=== PATIENT | male | born 1960 | race Caucasian/White ===

== ENCOUNTER 2025-08-31 22:39 | Inpatient (IN) | payer OTHER, SELFPAY ==
[2025-08-31] VITALS (10 sets, daily range): BP systolic 151–185; BP diastolic 103–138; PULSE 119–140; RESP 16–44; TEMP 37.6; O2SAT 91–100; BMI 18.8
--- NOTE | 2025-08-31 22:49 | EDNOTE_ITS ---
ED SOB =RME/HPI General Chief Complaint: Shortness of Breath/Dyspnea Stated Complaint: O2 85 HR 140/ SOB Time Seen by Provider: 08/31/25 22:55 Arrival date/time: 08/31/25 22:39 RME / HPI RME / HPI Narrative: See MDM for Dr. Pinto's HPI documentation. Related Data Previous Rx's ?Medication ?Instructions ?Recorded Sulfamethoxazole/Trimethoprim DS * 1 tab PO BID #20 ta bs 09/01/16 (BACTRIM DS *) Allergies Allergy/AdvReac Type Severity Reaction Status Date / Time NKA* Allergy Uncoded 08/31/25 22:56 Review of Systems Review of Systems Systems Reviewed: All systems reviewed, normal except as documented Past Medical History Past Medical History CARDIAC: Negative Cardiac Disorders or Congestive Heart Failure RESPIRATORY: Negative Chronic Obstructive Pulmonary Disease (COPD) or Asthma GENITOURINARY: Negative Renal Disease ENDOCRINE: Negative Diabetes Mellitus Type 1 or Diabetes Mellitus Type 2 HEMATOLOGIC: Negative Sickle Cell Disease Social History SMOKING STATUS: Never smoker ED Exam Narrative Physical exam: See MDM for Dr. Pinto's physical exam documentation. Course Course Course Narrative: 2246: Sepsis alert initiated. Orders made at this time are congruent with ED Adult Sepsis Order List. Re-evaluation is to be completed. CXR is ordered for determining the etiology of shortness of breath. IVF not given due to the patient being in CHF. Quality Measures none Orders Category Date Time Status Bedside COVID-19 Antigen Test NOW Care 08/31/25 22:56 Active COVID-19 Screening Questionnaire NOW Care 09/01/25 01:[address] Screening NOW Care 08/31/25 22:57 Active Decision to Admit X1 Care 09/01/25 01:46 Active EKG (ED ONLY) *Do not use* NOW Care 08/31/25 22:50 Completed In and Out Catheter X1 Care 08/31/25 22:53 Completed Insert IV NOW Care 08/31/25 22:50 Active Transfuse,blood/blood products NOW Care 08/31/25 23:35 Active Referral Respiratory Therapy Stat Cons 08/31/25 22:55 Active EKG (ED Only) Stat Exams 08/31/25 22:50 Draft XR chest 1V portable Stat Exams 08/31/25 22:57 Completed ABG [Arterial Blood Gas] Stat Lab 08/31/25 23:24 Completed BNP [B-Type Natriuretic Peptide] Stat Lab 08/31/25 23:07 Completed Bilirubin,Direct Stat Lab 08/31/25 23:07 Completed Blood Culture (Lab) Stat Lab 08/31/25 23:07 Received CBC Stat Lab 08/31/25 23:07 Completed CMP [Comprehensive Metabolic Panel] Stat Lab 08/31/25 23:07 Completed CRP [C-Reactive Protein] Stat Lab 08/31/25 23:07 Completed Cocci Serology IgM with reflex to IgG [Cocci Serology, Lab 08/31/25 23:07 Received Unk History] Stat D-Dimer Stat Lab 08/31/25 23:07 Completed ESR [Sed Rate (ESR)] Stat Lab 08/31/25 23:07 Completed Influenza A & B Rapid Panel Stat Lab 08/31/25 23:10 Completed Lactate (Lactic Acid) Stat Lab 08/31/25 23:07 Completed Lipase Stat Lab 08/31/25 23:07 Completed Magnesium Stat Lab 08/31/25 23:07 Completed Procalcitonin Stat Lab 08/31/25 23:07 Completed TSH [Thyroid Stimulating Hormone] Stat Lab 08/31/25 23:07 Completed Troponin I Stat Lab 08/31/25 23:07 Completed Type and Screen Stat Lab 08/31/25 23:59 Completed UA, C/S IF [Urinalysis, C/S if Indicated] Stat Lab 08/31/25 23:10 Completed Urine Culture Stat Lab 08/31/25 23:10 Received rbc [Red Blood Cells] Stat Lab 08/31/25 23:59 Completed Furosemide Inj [Lasix Inj] Med 08/31/25 22:56 Discontinued 40 mg IVP X1 ONE Metoprolol Tartrate Inj [Lopressor Inj] Med 08/31/25 22:56 Discontinued 2.5 mg IVP X1 ONE Metoprolol Tartrate Inj [Lopressor Inj] Med 09/01/25 00:01 Discontinued 5 mg IVP X1 ONE Metoprolol Tartrate [Lopressor] Med 09/01/25 00:01 Discontinued 50 mg PO X1 ONE Morphine* Inj Med 08/31/25 22:56 Discontinued 2 mg IV X1 ONE Nitroglycerin Oint 2% [Nitro-paste Oint 2%] Med 08/31/25 22:56 Discontinued 2 inch TOP X1 ONE Vancomycin Inj 1,000 mg Med 09/01/25 00:03 Discontinued Sodium Chloride 0.9% 250 ml [Ns] 250 ml IV X1 cefTRIAXone/D5w 1gm IV premix [Rocephin/D5w 1gm IV Med 08/31/25 23:35 Discontinued premix] 1 gm in 50 ml IV X1 BiPAP / CPAP NOW RT 08/31/25 22:55 Active Oxygen Delivery NOW RT 08/31/25 22:53 Active Vital Signs Vital signs: Vital Signs Pulse Rate 139 H 08/31/25 22:45 Respiratory Rate 44 H 08/31/25 22:45 Blood Pressure 185/138 H 08/31/25 22:45 Pulse Oximetry (%) 95 08/31/25 22:45 Shortness of Breath / Dyspnea MDM Narrative MDM Narrative:: This section includes all my notes and documentations, including HPI, PE, and ED course. Eyal Pinto MD HPI: 64yo male here with worsening shortness of breath for the several days. With orthopnea and paroxysmal nocturnal dyspnea. No obvious fever. No chest pain. No other complaints. ROS: All negative except as documented in HPI. Physical Exam: General: Alert and oriented. In severe respiratory distress. Eyes: Conjunctivae and lids clear. ENT: No nasal congestion. Neck: Supple. Heart: RRR. Lungs: In respiratory distress. Decreased air movement with rales. Abdomen: Soft and nontender. Normal bowel sounds. No distension. No rebound or guarding. Back: No CVA tenderness. Skin: Warm and dry. Neuro: Alert and oriented X 3. I reviewed all diagnostic test results. My interpretation of the EKG is sinus tachycardia with nonspecific ST-T changes. My interpretation of the chest x-ray is infiltrates. Blood tests remarkable for WBC 21.0, Hgb 7.3, ESR 66, D-Dimer 2010, Na 130, CO2 12.6, Creatinine 7.4, Glucose 205, Lactic Acid 3.6, Troponin 0.108, CRP >10, BNP 1973, Procalcitonin 1.49. ABG showed pH 7.35, pCO2 23, HCO3 13. UA remarkable for positive leukocyte esterase, 84 WBCs, and bacteria. COVID/Influenza negative. At this point, diagnoses include: Acute respiratory failure with hypoxia Sepsis UTI (urinary tract infection) Pulmonary edema Renal failure Severe anemia Elevated troponin Treatment here included: BiPAP Nitro-paste Morphine Metoprolol Lasix Rocephin Vancomycin Transfusion ordered I discussed the case with our hospitalist. About the presentation and exam and diagnostics and treatments here. And need of further care in the hospital. Will accept the patient. Eyal Pinto MD Patient data External records reviewed:: [facility] previous records (Per chart review, patient has no previous ED visits or admissions to this facility.) Clinical information provided by:: patient Social determinants that could affect healthcare access:: none Patient has the following chronic illnesses:: none How is presenting disease/condition affected by chronic disease/condition?: no chronic disease Evaluation data The following diagnostics were reviewed and interpreted by me:: lab results, radiology exam(s) and EKG tracing(s) (My interpretation of the EKG is: Sinus tachycardia (138 bpm) with nonspecific ST-T changes. Eyal Pinto MD) Lab and/or radiology exams considered but not ordered:: none Interpretation Summary: I reviewed all diagnostic test results. My interpretation of the EKG is sinus tachycardia with nonspecific ST-T changes. My interpretation of the chest x-ray is infiltrates. Blood tests remarkable for WBC 21.0, Hgb 7.3, ESR 66, D-Dimer 2010, Na 130, CO2 12.6, Creatinine 7.4, Glucose 205, Lactic Acid 3.6, Troponin 0.108, CRP >10, BNP 1973, Procalcitonin 1.49. ABG showed pH 7.35, pCO2 23, HCO3 13. UA remarkable for positive leukocyte esterase, 84 WBCs, and bacteria. COVID/Influenza negative. Medications / Prescriptions Medications or Prescriptions considered but not ordered:: none Medication administrations:: Medication Administration History Acetaminophen (Acetaminophen 325 Mg Tablet) 650 mg PO Q6H PRN PRN Reason: Fever >101.5 Stop: 10/01/25 01:59 Acetaminophen (Acetaminophen 325 Mg Tablet) 650 mg PO Q6H PRN PRN Reason: PAIN SCALE 1-3 (mild Stop: 10/01/25 01:59 Bumetanide (Bumetanide Inj 0.25 Mg/Ml Vial 4 Ml) 2 mg IVP DAILY BRANNON Stop: 10/01/25 08:59 Carvedilol (Carvedilol 3.125 Mg Tablet) 6.25 mg PO BIDWM BRANNON Stop: 10/02/25 07:59 Heparin Sodium (Porcine) (Heparin Sod Inj 5000 Unit/Ml Vial) 5,000 unit SC Q8HR BRANNON Stop: 09/15/25 05:59 Piperacillin Sod/Tazobactam (Sod 4.5 gm/ Sodium Chloride) 100 mls @ 200 mls/hr IV Q12HR BRANNON; Protocol Stop: 09/08/25 02:07 Pharmacy Consult (Vancomycin Pharmacy To Dose 1 Each Each) 1 each IV QDAY [facility] Stop: 10/01/25 08:59 Sennosides (Senna/Docusate Sod 1 Tab Tablet) 1 tab PO QDAY PRN; Protocol PRN Reason: CONSTIPATION Stop: 10/01/25 03:16 Discontinued Medications Carvedilol (Carvedilol 3.125 Mg Tablet) 3.125 mg PO BIDWM [facility] Stop: 10/01/25 07:59 Furosemide (Furosemide Inj 10 Mg/Ml 4ml Vial) 40 mg IVP X1 ONE Stop: 08/31/25 22:57 Last Admin: 08/31/25 23:15 Dose: 40 mg Documented By: ANA PAULA Ceftriaxone Sodium/Dextrose (Rocephin/D5w 1gm Iv Premix) 1 gm in 50 mls @ 100 mls/hr IV X1 ONE Stop: 09/01/25 00:04 Last Infusion: 09/01/25 00:19 Dose: Infused Documented By: ANA PAULA Admin: 08/31/25 23:44 Dose: 100 mls/hr Documented By: ANA PAULA Vancomycin HCl 1,000 mg/ (Sodium Chloride) 250 mls @ 150 mls/hr IV X1 ONE Stop: 09/01/25 01:42 Last Infusion: 09/01/25 02:09 Dose: Infused Documented By: ANA PAULA Admin: 09/01/25 00:20 Dose: 150 mls/hr Documented By: ANA PAULA Piperacillin Sod/Tazobactam (Sod 4.5 gm/ Sodium Chloride) 100 mls @ 200 mls/hr IV X1 ONE; Protocol Stop: 09/01/25 02:59 Metoprolol Tartrate (Metoprolol Tartrate Inj 1 Mg/Ml Amp 5 Ml) 2.5 mg IVP X1 ONE Stop: 08/31/25 22:57 Last Admin: 08/31/25 23:16 Dose: 2.5 mg Documented By: ANA PAULA Metoprolol Tartrate (Metoprolol Tartrate Inj 1 Mg/Ml Amp 5 Ml) 5 mg IVP X1 ONE Stop: 09/01/25 00:02 Last Admin: 09/01/25 00:19 Dose: 5 mg Documented By: ANA PAULA Metoprolol Tartrate (Metoprolol Tartrate 25 Mg Tablet) 50 mg PO X1 ONE Stop: 09/01/25 00:02 Last Admin: 09/01/25 00:18 Dose: 50 mg Documented By: ANA PAULA Morphine Sulfate (Morphine Sulf Inj 4 Mg/Ml Vial) 2 mg IV X1 ONE Stop: 08/31/25 22:57 Last Admin: 08/31/25 23:19 Dose: Not Given Documented By: ANA PAULA Non-Admin Reason: Patient Refused Nitroglycerin (Nitroglycerin Oint 2% 1 Inch Packet) 2 inch TOP X1 ONE Stop: 08/31/25 22:57 Last Admin: 08/31/25 23:15 Dose: 2 inch Documented By: ANA PAULA Sodium Chloride (Sodium Chloride Rt 10% 15 Ml Nebu) 5 ml INH X1 ONE Stop: 09/01/25 02:43 Treatment here from me included: BiPAP Nitro-paste Morphine Metoprolol Lasix Rocephin Vancomycin Transfusion ordered Consultations Consultation(s) initiated? (list below): Yes Consultation #1 (Physician, Specialty, Details): I discussed the case with our hospitalist. About the presentation and exam and diagnostics and treatments here. And need of further care in the hospital. Will accept the patient. Diagnosis Shortness of Breath Differential Diagnosis: acute exacerbation of chronic obstructive airways disease, congestive heart failure, community acquired pneumonia, asthma with exacerbation and pulmonary embolism Most likely diagnosis given after review of the tests above:: At this point, diagnoses include: Acute respiratory failure with hypoxia Sepsis UTI (urinary tract infection) Pulmonary edema Renal failure Severe anemia Elevated troponin Admission Indicated Admission indicated?: indicated Explain why admission is indicated or not indicated:: At this point, diagnoses include: Acute respiratory failure with hypoxia Sepsis UTI (urinary tract infection) Pulmonary edema Renal failure Severe anemia Elevated troponin Admission Request Was there a request for admission?: Yes Admission Attestation Admission request attestation: Discussed case with [] from Hospitalist service regarding admission. Discussed patients ED course, exam findings, labs, and radiology results. The Hospitalist [agrees,declines] to accept the patient for admission. Disposition Plan Disposition Plan: Admit Critical Care Time Critical Care Time Critical Care Time: Yes Total Critical Care Time (min.): 35 Attestation: Due to a high probability of clinically significant, life threatening deterioration, the patient required my highest level of preparedness to intervene emergently and I personally spent this critical care time directly and personally managing the patient. This critical care time included obtaining a history; examining the patient; ordering and review of studies; arranging urgent treatment with development of a management plan; evaluation of patient's response to treatment; frequent reassessment; and discussions with family and other providers. It was exclusive of separately billable procedures and treating other patients and teaching time. Eyal Pinto MD Discharge Plan Plan Patient Disposition: Admit Acute Care w/in Hospital Problem List Clinical Impression: Acute respiratory failure with hypoxia, Sepsis, UTI (urinary tract infection), Pulmonary edema, Renal failure, Severe anemia, Elevated troponin
--- NOTE | 2025-08-31 22:50 | EKG_ITS ---
[facility] Test Date: 2025-08-31 Pat Name: ANDRES HINTON Department: Room: - Gender: Male Offset Printer: : [id number] Requested By: Eyal Ash Order Number: [id number] Reading MD: Eyal Ash Measurements Intervals [place] Rate: 138 P: 32 MT: 89 QRS: 6 QRSD: 81 T: 94 QT: 329 QTc: 499 Interpretive Statements SINUS TACHYCARDIA WITH SHORT MT INTERVAL ST DEVIATION AND MODERATE T-WAVE ABNORMALITY, CONSIDER ANTEROLATERAL ISCHEMIA [-0.1+ mV T-WAVE IN V3-V6] No previous ECG available for comparison /store/S0/[id number]/[id number].pdf
--- NOTE | 2025-08-31 22:57 | XR_ITS ---
EXAMINATION: AP chest single view TECHNIQUE: AP portable upright chest single view August 31, 2025, 11:07 p.m. INDICATIONS: Shortness of breath today. FINDINGS: Extensive bilateral lung opacity consistent with pneumonia Normal heart size No pneumothorax Mild osteopenia IMPRESSION: Extensive bilateral pneumonia
[2025-08-31 23:13] LABS: Lactate (Lactic Acid) 3.6 mMol/L (0.4-2.0)
[2025-08-31] MEDS: FUROSEMIDE INJ 10 MG/ML 4ML VIAL 40 MG IVP (23:15)
[2025-08-31] MEDS: NITROGLYCERIN OINT 2% 1 INCH PACKET 2 INCH TOP (23:15)
[2025-08-31] MEDS: METOPROLOL TARTRATE INJ 1 MG/ML AMP 5 ML 2.5 MG IVP (23:16)
[2025-08-31 23:17] LABS: Collection Type, Urine Clean Catch; Squamous Epithelial Cell,Urine 0 /hpf (0-5)
[2025-08-31 23:18] LABS: Basophils # (Auto) 0.1 Thou/mm3 (0.0-0.2); Basophils % (Auto) 0 % (0-2.5); Eosinophils # (Auto) 0.1 Thou/mm3 (0.0-0.5); Eosinophils % (Auto) 0 % (0-10); Hematocrit 23.2 % (41.0-53.0); Immature Granulocytes Auto 0.32 Thou/mm3 (0.00-0.00); Lymphocytes # (Auto) 1.3 Thou/mm3 (1.0-4.8); Lymphocytes % (Auto) 6 % (10-50); Mean Corpuscular HGB Conc 31.5 g/dl (31.0-37.0); Mean Corpuscular Hemoglobin 27.2 pg (25.0-35.0); Mean Corpuscular Volume 87 fL (80-100); Monocytes # (Auto) 1.5 Thou/mm3 (0.0-0.8); Monocytes % (Auto) 7 % (0-12); Neutrophils # (Auto) 17.8 Thou/mm3 (1.8-7.7); Neutrophils % (Auto) 85 % (37-80); Nucleated Red Blood Cell # 0.00 Thou/mm3 (0.00-0.00); Nucleated Red Blood Cell % 0 /100 WBC (0); Platelet Count 554 Thou/mm3 (140-440); RDW Standard Deviation 45.7 fL (35.1-43.9); Red Blood Count 2.68 Miln/mm3 (4.50-5.90); White Blood Count 21.0 Thou/mm3 (3.8-10.6)
[2025-08-31 23:21] LABS: Hemoglobin 7.3 g/dL (13.5-16.0)
[2025-08-31 23:27] LABS: Bacteria,Urine Rare; Bilirubin,Urine Negative (Negative); Blood,Urine 1+ (Negative); Clarity,Urine Clear (Clear/Hazy); Color,Urine Lt-Yellow (Lt Yel-Yel); Glucose, Urine Negative (Negative); Ketones,Urine Negative (Negative); Leukocyte Esterase,Urine Positive (Negative); Nitrite,Urine Negative (Negative); PH,Urine 5.5 (5.0-7.0); Protein,Urine Trace (Neg - Trace); RBC,Urine 2 /hpf (0-3); Renal Epithelial Cells,Urine 2 /hpf (0-5); Specific Gravity,Urine 1.008 (1.001-1.035); Urobilinogen,Urine Negative mg/dL (0.0-1.0); WBC,Urine 84 /hpf (0-5)
[2025-08-31 23:29] LABS: Culture Indicated,Urine Yes
[2025-08-31 23:32] LABS: Base Excess -11 (-3-3); HCO3 13 mEq/L (20-26); Inspired Oxygen, FIO2 50 %; O2 Saturation 99 % (91-98); PCO2 23 mmHg (32.0-48.0); PO2 123 mmHg (83-108); pH, Arterial 7.35 (7.35-7.45)
[2025-08-31 23:33] LABS: Sed Rate (ESR) 66 mm/hr (0-20)
[2025-08-31 23:33] LABS: Allen Test Performed/OK; Puncture Site Right Radial
[2025-08-31 23:35] LABS: B-Type Natriuretic Peptide 1973 pg/mL (0-100); D-Dimer 2010 ng/mL (<600)
[2025-08-31] MEDS: cefTRIAXone/D5w 1gm IV premix 1 GM/50 ML BAG IV (23:44)
[2025-08-31 23:47] LABS: Alanine Aminotransferase 15 U/L (10-49); Albumin, Serum 3.8 gm/dL (3.4-4.8); Albumin/Globulin Ratio 1.1 (1.2-2.2); Alkaline Phosphatase 80 U/L (46-116); Anion Gap 18 (7-16); Aspartate Amino Transferase 14 U/L (0-34); BUN/Creatinine Ratio 10 Ratio (12-20); Bilirubin,Direct < 0.1 mg/dL (0.0-0.3); Bilirubin,Total 0.2 mg/dL (0.3-1.2); Blood Urea Nitrogen 72 mg/dL (9-23); C-Reactive Protein > 10.0 mg/dL (0.0-0.9); Calcium 9.4 mg/dL (8.3-10.6); Calcium (Corrected) 9.6 mg/dL (8.5-10.1); Chloride 99 mMol/L (98-107); Creatinine (Component) 7.4 mg/dL (0.6-1.3); Estimated Creatinine Clearance 8.8 mL/min (>60); Globulin 3.4 gm/dL (2.3-3.5); Glucose 205 mg/dL (74-106); Lipase 33 U/L (12-53); Magnesium 2.1 mg/dL (1.6-2.6); Osmolality,Calculated 288 (275-295); Potassium 4.4 mMol/L (3.4-5.1); Procalcitonin 1.49 ng/ml (0.0-0.49); Sodium 130 mMol/L (136-145); Thyroid Stimulating Hormone 3.45 uIU/mL (0.55-4.78); Total Protein 7.2 gm/dL (5.7-8.2); eGFR 8 See Note
[2025-08-31 23:48] LABS: Carbon Dioxide 12.6 mMol/L (20.0-31.0)
[2025-08-31 23:49] LABS: Troponin I 0.108 ng/mL (0.0-0.045)
[2025-08-31 23:57] LABS: Influenza A Ag Negative; Influenza B Ag Negative
[2025-09-01] VITALS (24 sets, daily range): BP systolic 119–165; BP diastolic 88–115; PULSE 100–129; RESP 16–32; TEMP 36.3–36.7; O2SAT 95–100
[2025-09-01] MEDS: METOPROLOL TARTRATE 25 MG TABLET 50 MG PO (00:18)
[2025-09-01] MEDS: METOPROLOL TARTRATE INJ 1 MG/ML AMP 5 ML 5 MG IVP (00:19)
[2025-09-01] MEDS: Vancomycin Inj 1,000 MG in SODIUM CHLORIDE 0.9% 250 ML 250 ML 150 MG IV (00:20)
--- NOTE | 2025-09-01 02:00 | ECHO_ITS ---
Transthoracic Echo Report Ht (in): 71 Wt (lb): 135 Exam Location: [id number] Status: Emergency Travel Manager: Daisy Lyon Indications: Procedure Performed: BP: 138 / 105 HR: 122 MEASUREMENTS (Male / Female) Normal Values 2D ECHO LV Diastolic Diameter PLAX 5.0 cm 4.2 - 5.9 / 3.9 - 5.3 cm LV Systolic Diameter PLAX 3.8 cm IVS Diastolic Thickness 1.2 cm 0.6 - 1.0 / 0.6 - 0.9 cm LVPW Diastolic Thickness 1.2 cm 0.6 - 1.0 / 0.6 - 0.9 cm LV Relative Wall Thickness 0.5 LVOT Diameter 1.9 cm LV Ejection Fraction MOD BP 38.0 % >= 55 % LV Cardiac Index MOD BP 2693.7 cm?/min?m? LV Ejection Fraction MOD 4C 35.6 % LV Cardiac Index MOD 4C 2364.0 cm?/min?m? LV Ejection Fraction 4C AL 39.7 % LV Cardiac Index 4C AL 2783.7 cm?/min?m? LV Ejection Fraction MOD 2C 37.4 % LV Cardiac Index MOD 2C 2602.5 cm?/min?m? LV Ejection Fraction 2C AL 36.9 % LV Cardiac Index 2C AL 2655.2 cm?/min?m? LA Volume Index 25.0 cm?/m? 16 - 28 cm?/m? Ascending Aorta Diameter 2.8 cm M-MODE AV Cusp Separation MM 1.1 cm DOPPLER AV Peak Velocity 82.4 cm/s AV Peak Gradient 2.7 mmHg AV Mean Gradient 2.0 mmHg AV Velocity Time Integral 12.1 cm LVOT Peak Velocity 68.4 cm/s LVOT Peak Gradient 1.9 mmHg LVOT Velocity Time Integral 11.0 cm LVOT Cardiac Index 2187.8 cm?/min?m? AV Area Cont Eq vti 2.6 cm? AV Area Cont Eq pk 2.4 cm? MR ERO PISA 3.1 cm? LV E' Lateral Velocity 6.1 cm/s LV E' Septal Velocity 5.8 cm/s TR Peak Velocity 361.0 cm/s TR Peak Gradient 52.1 mmHg PV Peak Velocity 77.4 cm/s PV Peak Gradient 2.4 mmHg FINDINGS Left Ventricle Normal left ventricular size. Mild LVH with severe global hypokinsis Global left ventricular systolic function is severely decreased. . The ejection fraction is visually estimated at 30%. Right Ventricle The right ventricle is normal in size and systolic function. The estimated right ventricular systolic pressure, 58 mmHg with RAP 8. Left Atrium The left atrial cavity size is mildly increased. Right Atrium The right atrium is normal by two-dimensional imaging, color flow and Doppler imaging with no structural abnormalities, no thrombus formation present. Atrial Septum The interatrial septum appears normal with no evidence of a shunt. Aorta The aorta is normal by two-dimensional, color flow and Doppler interrogation. Mitral Valve The mitral valve is normal by two-dimensional, color flow and Doppler interrogation..Moderate to Severe 3 + mitral regurgitation. Aortic Valve Aortic valve sclerosis without stenosis. Tricuspid Valve The tricuspid valve is normal by two-dimensional, color flow and Doppler interrogation. There is moderate to severe tricuspid valve regurgitation. Pulmonic Valve The pulmonic valve is not well visualized. There is no significant pulmonic valve regurgitation. Vessels The pulmonary artery appears normal. The inferior vena cava pulmonary and hepatic veins appear normal. Pericardium There is a small pericardial effusion without tamponade Other Findings Large pleural effusion CONCLUSIONS Indication: CHF exacerbation Severe left ventricle global hypokinesis with severe sytolic dysfunction, LVEF 30% Normal right ventricular size and function. . Mild dilated LA Aortic valve sclerosis without stenosis. Moderatto severe 3+ mitral regurgitation Moderate to severe tricuspid valve regurgitation. RVSP mm HG Moderate pulmonry hypertension Let pleural efusion present There is a small pericardial effusion without tamponade Rashmi John (Electronically Signed) Final Date: 01 September 2025 12:27
[2025-09-01 02:13] LABS: Reflex Lactate? Y
--- NOTE | 2025-09-01 02:26 | ESHP_ITS ---
<Statement entered by Tee Fernandes MD - 09/01/25 05:33> I have discussed and was present for the essential components of the history, physical examination, diagnosis, and treatment plan with the resident. I agree with the patient's care as documented by the resident and amended herein by me. Tee Fernandes MD FACP. Documentation for date of: 09/01/25 HPI History of Present Illness History of present illness: Mr. Hartman is a 64 y/o male with no reported PMHx who presented with shortness of breath and orthopnea x2 days. Accompanied by , Malika, at bedside. About 5 days patient had subjective fevers and chills. Two days ago patient noticed progressive shortness of breath, orthopnea, productive cough, palpitations, and desatting to 85% spO2 on room air. Not on home O2, denies hx COPD. Notes decreased appetite, early satiety. Also reports dysuria, nocturia, and decreased urge to urinate especially at night. Denies chest pain, chest pressure, change in bowel movements, nausea, vomiting. Does not see a PCP or specialists. No similar episodes in the past. ED course: HR 100-140s, RR 20-40, BP 140-180s / 90-130s, BMI 18, spO2 91% 6L NC --> 98% BiPAP FiO2 50%. Labs significant for WBC 21, hgb 7.3, HCT 23, plt 554. Na 130, bicarb 12.6, BUN 72, Cr 7.4, eGFR 8, glucose 205. Ddimer 2009, Lactic acid 3.6, Trop 0.108, CRP >10, BNP 1973, procal 1.49, TSH WNL. pH 7.35/23/123/13. UA 1+ blood, + LE, WBC 84. Negative COVID/flu. CXR showed extensive b/l PNA. EKG sinus tachycardia 138, prolonged QTc 499. Pending urine and blood cx. Given lasix 40 mg PO x1 in ED, made ~150 mL urine by time of interview. Nitroglycerin 2 inch topical, metoprolol 2.5 mg IV, metoprolol 50 mg PO, metoprolol 5 mg IV, morphine 2 mg IV, Ceftriaxone 1g IV, Vancomycin 1g IV, 1U pRBC. PMHx: none reported Allergies: NKDA Home meds: Multivitamin SgHx: Left middle finger amputated (work SHx: Denies smoking, EtOH, recreational drug use. Lives at home in [place] with his . Retired school patrol. FHx: Dad - aneurysm, Mom - T2DM Review of Systems Review of Systems Narrative Review of Systems: 14 point ROS negative other than HPI Exam Vital Signs Temp Pulse Resp BP Pulse Ox O2 Del Method O2 Flow Rate 98.0 F 101 H 16 142/97 H 100 BiPAP 10 09/01/25 02:20 09/01/25 02:20 09/01/25 02:20 09/01/25 02:20 09/01/25 02:20 09/01/25 02:20 08/31/25 22:54 FiO2 50 09/01/25 00:45 Narrative Exam General: No acute distress, thin Eye: PERRL, EOMI, normal conjunctiva, no scleral icterus HENT: Normocephalic, atraumatic, normal hearing Neck: Supple, non-tender, no lymphadenopathy. JVD present Lungs: Crackles heard at b/l lung bases, on BiPAP Heart: Normal S1 and S2, no S3 or S4 appreciated. Normal rate and regular rhythm, no murmurs, rubs gallops. 2+ LE edema b/l Abdomen: Soft, non-tender, mildly distended (pt states this is normal for him), normal bowel sounds. No guarding or rebound tenderness. Musculoskeletal: Normal range of motion and strength, no tenderness or swelling Skin: Skin is warm, dry, no rashes or lesions. Neurologic: Alert, awake and oriented x3. CN II-XII grossly intact. No focal neuro deficits. No signs of meningeal irritation noted. Psychiatric: Cooperative, appropriate mood and affect Results: Labs 08/31/25 23:07 08/31/25 23:07 Labs: Short CBC 08/31/25 Range/Units 23:07 WBC 21.0 H (3.8-10.6) Thou/mm3 Hgb 7.3 L (13.5-16.0) g/dL Hct 23.2 L (41.0-53.0) % Plt Count 554 H (140-440) Thou/mm3 BMP 08/31/25 23:07 Sodium 130 L Potassium 4.4 Chloride 99 Carbon Dioxide 12.6 L* BUN 72 H Creatinine 7.4 H* Glucose 205 H Calcium 9.4 Cardiac Enzymes 08/31/25 Range/Units 23:07 Troponin I 0.108 H* (0.0-0.045) ng/mL Liver Function 08/31/25 Range/Units 23:07 Total Bilirubin 0.2 L (0.3-1.2) mg/dL Direct Bilirubin < 0.1 (0.0-0.3) mg/dL AST 14 (0-34) U/L ALT 15 (10-49) U/L Alkaline Phosphatase 80 (46-116) U/L Albumin 3.8 (3.4-4.8) gm/dL Urine 08/31/25 Range/Units 23:10 Urine Color Lt-Yellow (Lt Yel-Yel) Urine Clarity Clear (Clear/Hazy) Urine pH 5.5 (5.0-7.0) Ur Specific [place] 1.008 (1.001-1.035) Urine Protein Trace (Neg - Trace) Urine Glucose (UA) Negative (Negative) ABG Interpretation ABG results: 08/31/25 23:24 ABG pH 7.35 ABG pCO2 23 L ABG pO2 123 H ABG HCO3 13 L ABG O2 Saturation 99 H ABG Base Excess -11 L Quality Measures Quality Measures none Medications Home Medications and Allergies Allergies Allergy/AdvReac Type Severity Reaction Status Date / Time NKA* Allergy Uncoded 08/31/25 22:56 Visit Medications Acetaminophen (Acetaminophen 325 Mg Tablet) 650 mg PO Q6H PRN PRN Reason: Fever >101.5 Stop: 10/01/25 01:59 Acetaminophen (Acetaminophen 325 Mg Tablet) 650 mg PO Q6H PRN PRN Reason: PAIN SCALE 1-3 (mild Stop: 10/01/25 01:59 Bumetanide (Bumetanide Inj 0.25 Mg/Ml Vial 4 Ml) 2 mg IVP DAILY BRANNON Stop: 10/01/25 08:59 Heparin Sodium (Porcine) (Heparin Sod Inj 5000 Unit/Ml Vial) 5,000 unit SC Q8HR BRANNON Stop: 09/15/25 05:59 Piperacillin Sod/Tazobactam (Sod 4.5 gm/ Sodium Chloride) 100 mls @ 200 mls/hr IV Q12HR BRANNON; Protocol Stop: 09/08/25 02:07 Piperacillin Sod/Tazobactam (Sod 4.5 gm/ Sodium Chloride) 100 mls @ 200 mls/hr IV X1 ONE; Protocol Stop: 09/01/25 02:59 Pharmacy Consult (Vancomycin Pharmacy To Dose 1 Each Each) 1 each IV QDAY BRANNON Stop: 10/01/25 08:59 Discontinued Medications Furosemide (Furosemide Inj 10 Mg/Ml 4ml Vial) 40 mg IVP X1 ONE Stop: 08/31/25 22:57 Last Admin: 08/31/25 23:15 Dose: 40 mg Ceftriaxone Sodium/Dextrose (Rocephin/D5w 1gm Iv Premix) 1 gm in 50 mls @ 100 mls/hr IV X1 ONE Stop: 09/01/25 00:04 Last Infusion: 09/01/25 00:19 Dose: Infused Vancomycin HCl 1,000 mg/ (Sodium Chloride) 250 mls @ 150 mls/hr IV X1 ONE Stop: 09/01/25 01:42 Last Infusion: 09/01/25 02:09 Dose: Infused Metoprolol Tartrate (Metoprolol Tartrate Inj 1 Mg/Ml Amp 5 Ml) 2.5 mg IVP X1 ONE Stop: 08/31/25 22:57 Last Admin: 08/31/25 23:16 Dose: 2.5 mg Metoprolol Tartrate (Metoprolol Tartrate Inj 1 Mg/Ml Amp 5 Ml) 5 mg IVP X1 ONE Stop: 09/01/25 00:02 Last Admin: 09/01/25 00:19 Dose: 5 mg Metoprolol Tartrate (Metoprolol Tartrate 25 Mg Tablet) 50 mg PO X1 ONE Stop: 09/01/25 00:02 Last Admin: 09/01/25 00:18 Dose: 50 mg Morphine Sulfate (Morphine Sulf Inj 4 Mg/Ml Vial) 2 mg IV X1 ONE Stop: 08/31/25 22:57 Last Admin: 08/31/25 23:19 Dose: Not Given Nitroglycerin (Nitroglycerin Oint 2% 1 Inch Packet) 2 inch TOP X1 ONE Stop: 08/31/25 22:57 Last Admin: 08/31/25 23:15 Dose: 2 inch Assessment & Plan Plan Mr. Hartman is a 64 y/o male with no reported PMHx who presented with shortness of breath, orthopnea, palpitations, productive cough, dysuria x2 days. Admitted for acute CHF exacerbation, b/l PNA, UTI. #Acute CHF exacerbation Initial presentation: Shortness of breath, orthopnea, palpitations, cough, tachycardic, tachypneic, spO2 desat requiring supplemental O2 Physical exam: JVD, 2+ LE edema, crackles at b/l lung bases. BP BP 140-180s / 90-130s. spO2 91% 6L NC --> 98% BiPAP FiO2 50% Bedside echo: IVC dilation >2.5 cm, non-collapsible BNP: 1973 Troponin 0.108 EKG: sinus tachycardia 138, prolonged QTc 499 Given lasix 40 mg PO in ED --> made ~150 mL urine before valdez insertion, made ~1L urine after valdez insertion Plan: - BiPAP - Pending Echo - Consulted cardiology, appreciate recs - Bumex 2 mg IV daily - Carvedilol 6.25 mg PO BID - Lipid panel for cardiac risk stratification - Fluid restriction 1500 mL per day - Daily weights - Strict I&Os #CONOR #c/f cardiorenal sydrome type 1 vs type 3 vs type 5 Denies hx CKD, no hx dialysis BUN 72, Cr 7.4, eGFR 8, BUN/Cr ratio 10, CrCl 4 Plan: - Consulted nephrology, appreciate recs - CTM renal function with daily BMP - Pending b/l renal US to assess for hydronephrosis - May need dialysis if patient cannot make enough urine with diuretics - Avoid NSAIDs, ACEi/ARB #Sepsis 2/2 PNA, UTI #Leukocytosis #Elevated lactic acid - now resolved Tachycardic, tachypneic, leukocytosis, lactic acid elevated, troponin elevated, CONOR WBC 21, neutrophilic predominance Lactic acid 3.6 --> 1.9 Given Ceftriaxone 1g IV and Vancomycin 1g IV in ED No fluids given i/s/o acute CHF exacerbation Plan: - Abx management as below - Pending blood, urine, and sputum cx #Community-acquired pneumonia Shortness of breath with productive cough, desat to 80s at home procal 1.49 CXR showed extensive b/l PNA Given Ceftriaxone 1g IV and Vancomycin 1g IV in ED Plan: - Vancomycin IV daily (dosing per pharmacy) for MRSA coverage - Zosyn 4.5 g IV q12h (renally dosed) For gram positive, gram negative, and anaerobic coverage - On BiPAP - Pending sputum cx #Complicated UTI Dysuria, nocturia, and decreased urge to urinate especially at night No hx recurrent UTIs UA 1+ blood, + LE, WBC 84 Given Ceftriaxone 1g IV and Vancomycin 1g IV in ED Plan: - Zosyn 4.5 g IV q12h (renally dosed) for gram negative coverage - Pending urine cx - Valdez catheter given decreased urge to urinate, c/f retention #Elevated troponin Denies chest pain/pressure Troponin 0.108 Given nitroglycerin 2 in topical; metoprolol 2.5 mg IV, 50 mg PO, 5 mg IV; morphine 2 mg IV Plan: - Pending repeat troponin q6h. Can d/c once downtrending #Elevated D dimer D-dimer 2009 i/s/o shortness of breath, spO2 desaturation requiring supplemental O2/BiPAP Plan: - VQ scan to r/o PE #Primary anion gap metabolic acidosis #Compensatory respiratory alkalosis pH 7.35/CO2 23/O2 123/HCO3 13 Anion gap 18 Expected PaCO2: 25-29 (actual CO2 23). RR 20-40s Beta hydroxybutyrate WNL AOx3. Denies N/V, constipation, diarrhea, seizures, muscle cramps, pruritus DDX: lactic acid, uremia Plan: - Management of CHF and CONOR as above #Normocytic normochromic anemia Hgb 7.3, HCT 23. Transfused 1U pRBC in ED Plan: - Pending post transfusion H&H - CTM with daily CBC #QTc prolongation QTc 499 Plan: - Avoid QTc prolonging medications #Thrombocytosis Most likely reactive Plan: - CTM with daily CBC #Underweight BMI 18 Decreased appetite, early satiety Plan: - Cardiac/Renal diet #Hyperglycemia No hx T2DM Glucose 205 Plan: - Pending A1C #Hyponatremia Na 130 Plan: - CTM daily BMP Checklist Dispo: Admit to tele for cardiac monitoring Diet: Cardiac/Renal with fluid restriction 1500 mL/day Bowel Reg: doc/senna PRN VTE ppx: heparin subQ GI ppx: n/a Pain mgmt: Tylenol PRN Code status: Limited - no intubated, ok to do CPR Plan discussed with Dr. Dorsey and Dr. Dena Francois MD PGY1
--- NOTE | 2025-09-01 02:40 | PC.NURSE ---
The blood transfusion was initiated without any complications or symptoms reported by the patient. The nurse verified the patient?s identity and the blood products. Nurse at the bedside monitoring the patient closely. Vital signs were obtained at the time of initiation, and no signs of distress or discomfort were noted. The nurse will continue to monitor the patient?s condition, observing for any adverse reactions during the transfusion, particularly in the first 15 minutes, as per protocol. The patient is stable, and the procedure is proceeding as expected without any immediate concerns.
[2025-09-01 03:17] LABS: Lactic Acid, 3 HR 1.9 mMol/L (0.4-2.0)
[2025-09-01 03:21] LABS: Beta Hydroxybutyrate 0.3 mmol/L (<0.6)
--- NOTE | 2025-09-01 04:57 | PC.RT ---
Approached pt about providing a sputum sample at this time. Pt refused saying he has nothing to cough up at this time and he does not believe the sputum induction will work and again refused. Explained the importance of getting the sample and pt said he understood. Possibly will try later.
--- NOTE | 2025-09-01 05:30 | XR_ITS ---
Examination: Retroperitoneal ultrasound, complete Technique: Multiple high resolution grayscale images of the retroperitoneum obtained, including kidneys and bladder. Exam date and time: September 01, 2025, 0828 hours INDICATIONS: Acute renal insufficiency blood in the urine today FINDINGS: Right kidney 12.6 cm renal cortex 1.6 cm Left kidney 11.4 cm renal cortex 1.5 cm Mild right mild to moderate left hydronephrosis No renal calculi Bladder wall 0.9 cm no bladder mass, bladder prevoid volume 146 cc Prostate enlarged volume 74 cc no prostate nodules IMPRESSION: Mild right mild to moderate left hydronephrosis Significant prostatomegaly, no prostate nodules
[2025-09-01 08:03] LABS: Base Excess -10 (-3-3); HCO3 13 mEq/L (20-26); Inspired Oxygen, FIO2 40 %; O2 Saturation 100 % (91-98); PCO2 22 mmHg (32.0-48.0); PO2 147 mmHg (83-108); pH, Arterial 7.39 (7.35-7.45)
[2025-09-01 08:05] LABS: Allen Test Not Performed; Puncture Site Site Not Noted
[2025-09-01] MEDS: BUMETANIDE INJ 0.25 MG/ML VIAL 4 ML 2 MG IVP (08:21)
[2025-09-01] MEDS: HEPARIN SOD INJ 5000 UNIT/ML VIAL SC ×3 (08:22→22:22)
[2025-09-01] MEDS: SODIUM BICARBONATE 650 MG TABLET PO ×2 (08:24→20:24)
--- NOTE | 2025-09-01 09:08 | ESPR_ITS ---
<Statement entered by Amrit Cleveland MD - 09/05/25 12:13> I reviewed above note and agree with findings and plans. I have also personally examined the patient with medicine team and went over assessment and plan with medical team including academic intern and resident physician. <Statement entered by Bear Rodney MD - 09/01/25 20:01> I saw and examined patient personally and supervised PGY 1 resident, Dr. Flores with formulating a management plan. I agree with the documentation with the exceptions as listed below. Mr. Hartman is a 64 y/o male with no reported PMHx who presented with shortness of breath, orthopnea, palpitations, unproductive cough, dysuria x2 days. Admitted for acute decompensated CHF exacerbation, b/l PNA, UTI. Problem list: 1. Acute respiratory failure with hypoxia secondary to acute decompensated CHF exacerbation 2. Community-acquired pneumonia 3. NSTEMI type I versus type II 4. Acute kidney injury prerenal versus renal 5. Possible cardiorenal syndrome 6. Lactic acidosis?resolved 7. Leukocytosis 8. UTI 9. Anion gap metabolic acidosis?improving Patient presented with worsening shortness of breath for the past 3 days. According to his he recently cleaned his attic which was very [place] and his symptoms started around then. No history of medical conditions and also has not seen a doctor in years. Apparently he does check his blood pressure at home and reports that his SBP is usually are in the 140s. With regards to his acute respiratory failure with hypoxia he was on BiPAP overnight. This a.m. his ABG showed pH 7.39, pCO2 22. He was transition to nasal cannula saturating 99% on 2L. For his CHF exacerbation, he is on diuresis with Bumex 2 Mg IV daily. Has a - 1.7 L fluid balance in the past 24 hours. Echocardiogram showed severe global hypokinesis with EF 50%. Moderate to severe mitral and tricuspid regurgitation. instrument tech, Dr. Feliciano Awad was consulted. Appreciate recommendations At this point the etiology of his CONOR is obscure. Possibly due to venous congestion from cardiorenal syndrome also may be due to longstanding diagnosed hypertension leading to hypertensive nephropathy. Nephrology, Dr Chisholm was consulted. He is on ceftriaxone and azithromycin for his community-acquired pneumonia. Plan of care discussed with Attending Dr. Megha Rodney MD PGY 2 Disclaimer: This note was dictated by speech recognition. Minor errors in construction executive may be present due to voice recognition software. Documentation for date of: 09/01/25 Subjective Subjective Interval history: Patient examined bedside (on Bipap) with present, labs reviewed. States 2 weeks ago niece was sick with viral flu (cough/fever) who the was around. No other sick contacts. Patient and have not been socializing much because of the flu season. For the past 3 days he has had SOB with a dry non-productive cough (at times clear phlegm) with occasional dysuria. His states that he has been sitting in the tripod position the last 3 days; however patient protests this. states he is a fairly active person and was surprised by how fast he has decompensated. Patient endorses SOB when active and when lying down, currently improved on oxy mask. He denies chest pain and palpitations. States no recent history of unilateral limb swelling or redness. He is unhappy with how his catheterization was done and indicates before the valdez was put in his urine was yellow but after the unpleasant experience it is now blood orange red. Weight: 61.235 kg Net balance: (-)1.7L (2L was urine) Exam Vital Signs Temp Pulse Resp BP Pulse Ox O2 Del Method O2 Flow Rate 97.4 F 108 H 29 H 158/114 H 100 BiPAP 10 09/01/25 08:00 09/01/25 08:21 09/01/25 08:00 09/01/25 08:21 09/01/25 08:00 09/01/25 08:00 09/01/25 08:00 FiO2 40 09/01/25 08:00 Narrative Exam GENERAL APPEARANCE: AOx3. NAD, activity normal for age, well developed/ well nourished, no cyanosis, pallor, or diaphoresis. HEENT: Normocephalic atraumatic, no facial trauma, neck is supple. Lids/conjunctiva normal. Mucous membranes moist, nares normal, lips/teeth normal uvula midline without oral pharyngeal erythema, exudate or swelling TMs normal bilaterally. No lymphangitis/lymphedema. +JVD CARDIAC: Regular rhythm Tachy rate, S1+S2 heard. No murmurs, rubs, or gallops noted RESPIRATORY: On Bipap. Lung sounds difficult to auscultate. Minor bilateral crackles/rales appreciated, overall clear to auscultation. ABDOMINAL: NBS. Soft, ND/NT. No evidence of fluid wave. No pulsatile masses on exam, rebound tenderness, Huang sign or pain over Mcburney's point. MUSCLES/EXTREMITIES: No abnormal range of motion, no swelling. No pedal edema DERM: Warm, pink and dry. No rashes, dermatoses, petechiae or lesions. NEUROLOGICAL: Speech is clear and appropriate. Normal level of consciousness. Gait and coordination are normal. 5/5 strength in all extremities. PSYCH: Normal mood and affect. Judgement/competence is appropriate : No CVA tenderness Objective Labs 09/01/25 09:35 09/01/25 15:16 Labs: Laboratory Results - last 24 hr 08/31/25 08/31/25 08/31/25 23:07 23:10 23:24 WBC 21.0 H RBC 2.68 L Hgb 7.3 L Hct 23.2 L MCV 87 MCH 27.2 MCHC 31.5 RDW Std Deviation 45.7 H Plt Count 554 H Neut % (Auto) 85 H Lymph % (Auto) 6 L [place] % (Auto) 7 Eos % (Auto) 0 Baso % (Auto) 0 Neut # (Auto) 17.8 H Lymph # (Auto) 1.3 [place] # (Auto) 1.5 H Eos # (Auto) 0.1 Baso # (Auto) 0.1 Immature Gran # (Auto) 0.32 H Absolute Nucleated RBC 0.00 Immature Gran % 2 H Nucleated RBC % 0 ESR 66 H D-Dimer 2010 H Puncture Site Right Radial ABG pH 7.35 ABG pCO2 23 L ABG pO2 123 H ABG HCO3 13 L ABG O2 Saturation 99 H ABG Base Excess -11 L FiO2 50 Sodium 130 L Potassium 4.4 Chloride 99 Carbon Dioxide 12.6 L* Anion Gap 18 H BUN 72 H Creatinine 7.4 H* Estim Creat Clear Calc 8.8 L eGFR 8 L* BUN/Creatinine Ratio 10 L Glucose 205 H Calculated Osmolality 288 Lactic Acid 3.6 H Calcium 9.4 Corrected Calcium 9.6 Magnesium 2.1 Total Bilirubin 0.2 L Direct Bilirubin < 0.1 AST 14 ALT 15 Alkaline Phosphatase 80 Troponin I 0.108 H* C-Reactive Prot, Quant > 10.0 H B-Natriuretic Peptide 1973 H* Total Protein 7.2 Albumin 3.8 Globulin 3.4 Albumin/Globulin Ratio 1.1 L Lipase 33 Beta-Hydroxybutyrate/Acetoacetate Procalcitonin 1.49 H TSH 3.45 Ur Collection Type Clean Catch Urine Color Lt-Yellow Urine Clarity Clear Urine pH 5.5 Ur Specific [place] 1.008 Urine Protein Trace Urine Glucose (UA) Negative Urine Ketones Negative Urine Blood 1+ A Urine Nitrite Negative Urine Bilirubin Negative Urine Urobilinogen (Auto) Negative Ur Leukocyte Esterase Positive Urine RBC 2 Urine WBC 84 H Ur Squamous Epith Cells 0 Ur Renal Epithelial Cell 2 Urine Bacteria Rare Ur Culture Indicated? Yes Influenza A (Rapid) Negative Influenza B (Rapid) Negative Blood Type Antibody Screen Crossmatch Blood Bank Wristband ID 08/31/25 09/01/25 09/01/25 23:59 02:43 07:55 WBC RBC Hgb Hct MCV MCH MCHC RDW Std Deviation Plt Count Neut % (Auto) Lymph % (Auto) [place] % (Auto) Eos % (Auto) Baso % (Auto) Neut # (Auto) Lymph # (Auto) [place] # (Auto) Eos # (Auto) Baso # (Auto) Immature Gran # (Auto) Absolute Nucleated RBC Immature Gran % Nucleated RBC % ESR D-Dimer Puncture Site Site Not Noted ABG pH 7.39 ABG pCO2 22 L ABG pO2 147 H D ABG HCO3 13 L ABG O2 Saturation 100 H ABG Base Excess -10 L FiO2 40 Sodium Potassium Chloride Carbon Dioxide Anion Gap BUN Creatinine Estim Creat Clear Calc eGFR BUN/Creatinine Ratio Glucose Calculated Osmolality Lactic Acid 1.9 Calcium Corrected Calcium Magnesium Total Bilirubin Direct Bilirubin AST ALT Alkaline Phosphatase Troponin I C-Reactive Prot, Quant B-Natriuretic Peptide Total Protein Albumin Globulin Albumin/Globulin Ratio Lipase Beta-Hydroxybutyrate/Acetoacetate 0.3 Procalcitonin TSH Ur Collection Type Urine Color Urine Clarity Urine pH Ur Specific [place] Urine Protein Urine Glucose (UA) Urine Ketones Urine Blood Urine Nitrite Urine Bilirubin Urine Urobilinogen (Auto) Ur Leukocyte Esterase Urine RBC Urine WBC Ur Squamous Epith Cells Ur Renal Epithelial Cell Urine Bacteria Ur Culture Indicated? Influenza A (Rapid) Influenza B (Rapid) Blood Type A Positive Antibody Screen NEGATIVE Crossmatch See Detail Blood Bank Wristband ID Yes ABG Interpretation ABG results: 08/31/25 09/01/25 23:24 07:55 ABG pH 7.35 7.39 ABG pCO2 23 L 22 L ABG pO2 123 H 147 H D ABG HCO3 13 L 13 L ABG O2 Saturation 99 H 100 H ABG Base Excess -11 L -10 L Quality Measures Quality Measures none Assessment & Plan Assessment Current Active Medications: Generic Name Dose Route Start Last Admin Trade Name Teo PRN Reason Stop Dose Admin Acetaminophen 650 mg 09/01/25 07:31 Acetaminophen 325 Mg Tablet PO 10/01/25 01:59 Q6H PRN Fever >100 or pain 1-3 Bumetanide 2 mg 09/01/25 09:00 09/01/25 08:21 Bumetanide Inj 0.25 Mg/Ml Vial 4 Ml IVP 10/01/25 08:59 2 mg DAILY BRANNON Administration Dextrose 25 ml 09/01/25 07:33 Dextrose 50%-Water Inj 50 Ml Syringe IV 10/01/25 07:32 Q15MIN PRN BG 50-70 responsive npo pt Dextrose 50 ml 09/01/25 07:33 Dextrose 50%-Water Inj 50 Ml Syringe IV 10/01/25 07:32 Q15MIN PRN BG <50 OR BG <70 & pt unresponsive Glucagon 1 mg 09/01/25 07:33 Glucagon Inj 1 Mg Vial IM Q15MIN PRN BG <70, and no IV access Heparin Sodium (Porcine) 5,000 unit 09/01/25 06:00 09/01/25 08:22 Heparin Sod Inj 5000 Unit/Ml Vial SC 09/15/25 05:59 5,000 unit Q8HR BRANNON Administration Insulin Human Lispro 0 unit 09/01/25 11:30 Insulin Lispro (Admelog) 1 Unit/0.01 Ml Unit SC 10/01/25 11:29 ACHS [facility] Protocol Pharmacy Consult 1 each 09/01/25 07:30 Pharmacy Renal Dose Adjustment 1 Ea XX 10/01/25 07:29 PRN PRN CONSULT Sennosides 1 tab 09/01/25 03:17 Senna/Docusate Sod 1 Tab Tablet PO 10/01/25 03:16 QDAY PRN CONSTIPATION Protocol Sodium Bicarbonate 650 mg 09/01/25 09:00 09/01/25 08:24 Sodium Bicarbonate 650 Mg Tablet PO 10/01/25 08:59 650 mg BID [facility] Administration Plan Mr. Hartman is a 64 y/o male with no reported PMHx who presented with shortness of breath, orthopnea, palpitations, unproductive cough, dysuria x2 days. Admitted for acute CHF exacerbation, b/l PNA, UTI. #Acute hypoxic respiratory failure most likely 2/2 #Acute decompensated CHF exacerbation Differentials include CHF exacerbation & pneumonia. 3 days of SOB without productive cough. Desatted to 80% at home. Presented to ED SOB and tachypnic RR:20-40s in respiratory distress with O2:91% improved with Bipap. RRR on physical exam and very slight crackles bilateral crackles on lung auscultation. EKG showed sinus tachycardia with a short ND interval, a prolonged QTC interval:[address] elevations. Chest xray showed bilateral lung opacities and pleural effusions. BNP: 2693, Troponin 0.108 --> 0.126--> 0.083. NYHA class III (Marked limitation of physical activity; comfortable at rest). ASCVD: 10 year CV risk: 7.5% ECHO: severe left ventricle global hypokinesis with severe systolic dysfunction, LVEF: 30%, normal RV size and function. Mild dilated LA. Aortic valve sclerosis without stenosis. Moderate to severe 3+ mitral regurgitation. Moderate to severe tricuspid valve regurgitation. Moderate pulmonary hypertension. Left pleural effusion present. There is a small pericardial effusion without tamponade. Plan: - BiPAP - Consulted cardiology, appreciate recs - Discontinued Carvedilol 6.25 mg PO BID - Bumex 2 mg IV daily - Lipid panel: Triglycerides:90 cholesterol: 96 LDL: 46 HDL: 32 - Fluid restriction 1500 mL per day - Daily weights - Strict I&Os - NM VQ scan tomorrow pending patients tolerance to supine position #Community-acquired pneumonia Shortness of breath with productive cough, desat to 80s at home. Sick contact 2 weeks ago. Minimal bilateral crackles appreciated on lung auscultation. Procal 1.49. CXR showed extensive b/l PNA. Given Ceftriaxone 1g IV and Vancomycin 1g IV in ED. Myocarditis less likely due to moderate increase in cardiac enzymes, possible pericarditis due to symptoms improving with leaning forward (however discrepancy between patient and partner) small pericardial effusion without tamponade on ECHO and potential electrical alternans seen on EKG. Plan: - Vancomycin IV daily (dosing per pharmacy) for MRSA coverage - (DC'd 09/01) - Zosyn 4.5 g IV q12h (renally dosed) - (DC'd 09/01) - Ceftriaxone 1g in 50mL IV QD 100 mls/hr (09/01 - - Azithromycin 500 mg IV QD 250ml/hr (09/01 - - On BiPAP - Pending sputum cx:____ - Cocci:____ - RSV:____ - MRSA nasal screen:____ #NSTEMI-I vs NSTEMI-II Denies chest pain/pressure. Trops downtrending 0.108 --> 0.126--> 0.083. D dimers was 2009. Wells score: 1.5 (only positive finding is HR>100). In ED given nitroglycerin 2 in topical; metoprolol 2.5 mg IV, 50 mg PO, 5 mg IV; morphine 2 mg IV. Most likely type 2 from demand ischemia, no signs of ischemia from ekg, symptoms resolved with rest and oxygen. Low suspicion for PE therefore not pursuing imaging at this time. Plan: - VQ scan to r/o PE #Acute kidney injury (CONOR) most likely 2/2 #Hypovolemia (pre-renal azotemia) Differentials include prerenal azotemia from hypotension, cadiorenal, long standing kidney injury. Denies hx CKD, no hx dialysis. No CVA tenderness. BUN 72, Cr 7.4, eGFR 8, BUN/Cr ratio 10, CrCl 4. Renal US: mild to moderate left hydronephrosis, significant prostatomegaly, no prostate nodules. Long standing kidney injury may be the best differential due to long undoctored history and HAGMA resolving with lactic acidosis downtrending while BUN stays above 70 and elevate Cr: 7. Plan: - Consulted nephrology, appreciate recs - CTM renal function with daily BMP - Pending b/l renal US to assess for hydronephrosis - May need dialysis if patient cannot make enough urine with diuretics - Avoid NSAIDs, ACEi/ARB #Leukocytosis #Lactic acidosis - now resolved Tachycardic, tachypneic, leukocytosis, lactic acid elevated, troponin elevated, CONOR WBC 21, neutrophilic predominance. Lactic acid 3.6 --> 1.9. Given Ceftriaxone 1g IV and Vancomycin 1g IV in ED. No fluids given i/s/o acute CHF exacerbation Plan: - Abx management as below - Pending blood:___ - urine cx:____ - sputum cx:____ #UTI Dysuria, nocturia, and decreased urge to urinate especially at night. No hx recurrent UTIs UA 1+ blood, + LE, WBC 84. Given Ceftriaxone 1g IV and Vancomycin 1g IV in ED Plan: - Zosyn 4.5 g IV q12h (renally dosed) for gram negative coverage - DC'd - Pending urine cx: - Valdez catheter given decreased urge to urinate, c/f retention #Primary anion gap metabolic acidosis- Improving #Compensatory respiratory alkalosis pH 7.35/CO2 23/O2 123/HCO3 13. Anion gap 18. Expected PaCO2: 25-29 (actual CO2 23). RR 20-40s. Beta hydroxybutyrate WNL. AOx3. Denies N/V, constipation, diarrhea, seizures, muscle cramps, pruritus. Likely to be due to lactic acidosis due to LA downtrending to 1.9 from 3.6, and AG dropping from 18-->16-->14; while BUN stayed elevated in the 70s. Plan: - Management of CHF and CONOR as above #Normocytic normochromic anemia - resolving Hgb 7.3, HCT 23, on admission. Transfused 1U pRBC in ED therefore unable to do anemia workup since ferritin levels will be falsely elevated. Plan: - Post transfusion H+H: 8.9 - CTM with daily CBC #Transaminitis AST: 103 (112) ALT: 108 (104). Most likely secondary to hypovolemia i/s/o of acute CHF exacerbation. Plan: -CTM LFTs #QTc prolongation QTc 499 Plan: - Avoid QTc prolonging medications #Thrombocytosis Most likely reactive Plan: - CTM with daily CBC #Underweight BMI 18 Decreased appetite, early satiety Plan: - Cardiac/Renal diet #Hyponatremia Na 130 Plan: - CTM daily BMP #Hematuria Most likely secondary to traumatic cath. Patients urine was clear and after painful catheterization color appeared blood-orange red. Plan: -CTM urine output -Monitor for clots in urine bag Checklist Dispo: Admit to tele for cardiac monitoring Diet: Cardiac/Renal with fluid restriction Bowel Reg: doc/senna PRN VTE ppx: heparin subQ GI ppx: n/a Pain mgmt: Tylenol PRN Code status: Limited - no intubated, ok to do CPR Plan discussed with PGY2 Dr. Rodney and Attending Dr. Megha Flores MD PGY1
[2025-09-01 10:03] LABS: Basophils # (Auto) 0.1 Thou/mm3 (0.0-0.2); Basophils % (Auto) 0 % (0-2.5); Eosinophils # (Auto) 0.1 Thou/mm3 (0.0-0.5); Eosinophils % (Auto) 0 % (0-10); Hematocrit 27.1 % (41.0-53.0); Hemoglobin 8.9 g/dL (13.5-16.0); Immature Granulocytes Auto 0.21 Thou/mm3 (0.00-0.00); Lymphocytes # (Auto) 0.8 Thou/mm3 (1.0-4.8); Lymphocytes % (Auto) 5 % (10-50); Mean Corpuscular HGB Conc 32.8 g/dl (31.0-37.0); Mean Corpuscular Hemoglobin 28.3 pg (25.0-35.0); Mean Corpuscular Volume 86 fL (80-100); Monocytes # (Auto) 0.9 Thou/mm3 (0.0-0.8); Monocytes % (Auto) 6 % (0-12); Neutrophils # (Auto) 13.5 Thou/mm3 (1.8-7.7); Neutrophils % (Auto) 87 % (37-80); Nucleated Red Blood Cell # 0.00 Thou/mm3 (0.00-0.00); Nucleated Red Blood Cell % 0 /100 WBC (0); Platelet Count 532 Thou/mm3 (140-440); RDW Standard Deviation 44.6 fL (35.1-43.9); Red Blood Count 3.15 Miln/mm3 (4.50-5.90); White Blood Count 15.5 Thou/mm3 (3.8-10.6)
[2025-09-01 10:19] LABS: Glucose Estimated Average 105 mg/dL (80-131); Hemoglobin A1C 5.3 % Hgb (4.8-6.0)
[2025-09-01] MEDS: cefTRIAXone/D5w 1gm IV premix 1 GM/50 ML BAG IV (10:25)
[2025-09-01 10:26] LABS: Alanine Aminotransferase 104 U/L (10-49); Albumin, Serum 3.8 gm/dL (3.4-4.8); Albumin/Globulin Ratio 1.2 (1.2-2.2); Alkaline Phosphatase 80 U/L (46-116); Anion Gap 16 (7-16); Aspartate Amino Transferase 112 U/L (0-34); BUN/Creatinine Ratio 11 Ratio (12-20); Bilirubin,Total 0.2 mg/dL (0.3-1.2); Blood Urea Nitrogen 77 mg/dL (9-23); Calcium 9.7 mg/dL (8.3-10.6); Calcium (Corrected) 9.9 mg/dL (8.5-10.1); Cardiac Risk Estimate 3.0 RATIO (4.0-6.7); Chloride 101 mMol/L (98-107); Cholesterol 96 mg/dL (132-200); Creatine Kinase 35 U/L (34-171); Creatinine (Component) 7.3 mg/dL (0.6-1.3); Estimated Creatinine Clearance 9.0 mL/min (>60); Globulin 3.3 gm/dL (2.3-3.5); Glucose 121 mg/dL (74-106); HDL Cholesterol 32 mg/dL (40-60); LDL Cholesterol,Calculated 46 mg/dL (0-130); Magnesium 2.1 mg/dL (1.6-2.6); Osmolality,Calculated 288 (275-295); Potassium 5.0 mMol/L (3.4-5.1); Sodium 132 mMol/L (136-145); Total Protein 7.1 gm/dL (5.7-8.2); Triglycerides 90 mg/dL (30-150); eGFR 8 See Note
[2025-09-01 10:27] LABS: Carbon Dioxide 14.9 mMol/L (20.0-31.0)
--- NOTE | 2025-09-01 10:28 | ESCONSULT_ITS ---
<Statement entered by Clau Awad MD - 09/05/25 19:02> I personally examined the patient evaluated with resident physician PGY 2 Dr. Jc RENE patient has new onset heart failure chest x-ray mostly appears to be congestive heart failure rather than pneumonia recommend aggressive IV Bumex urine output goal of more than 3 L. Patient has cardiomyopathy possible etiology undetermined acute congestive heart failure anemia acute renal failure as well multiple medical issues acutely ill patient will continue to monitor the patient closely evaluate the patient and formulated treatment plan recommendation with PGY 2 HPI Data of Consult Requesting Physician: Tee Fernandes MD Admitting Provider: Tee Fernandes MD Attending Provider: Tee Fernandes MD Primary Care Provider: Physician No Primary/Family Consult Narrative History of present illness: Moshe Hartman is a 64-year-old male with no reported past medical history who presents after just a few days of shortness of breath. present at bedside to help provide additional history. Approximately 2 weeks ago patient's niece visited and at the time did not have symptoms but eventually developed a fever and cough later on. Since a few days ago, patient experienced progressively worsening shortness of breath with associated subjective fever and chills and lower extremity edema. Denies any chest discomfort, orthopnea, and PND. He does endorse some discomfort when urinating and decreased urine output within last few days but prior to shortness of breath has had no issues with urination. states that during September 2024, patient was cleaning out an attic and was exposed to significant amount of bat and rodent droppings and afterwards developed on and off illnesses in the months to follow. He does not see any specialist on the outpatient side, nor does he have a PCP. In the ED, vitals were significant for BP of 185/138, pulse of 139, respiratory rate of 44, saturating 95% on 6 L nasal cannula, and afebrile. Labs showed leukocytosis of 21, hemoglobin of 7.3, platelet of 554, bicarb of 15, creatinine of 7.4, BUN 72, GFR 8, troponin 0.11, BNP 1900 Pro-Chidi 1.5, CRP greater than 10, ESR 66. UA showed LE positive, 84 WBC, rare bacteria. CXR showed extensive bilateral infiltrates, EKG shows sinus tachycardia with nonspecific T wave abnormalities. In the ED, given Lasix 40 mg IV x 1, nitroglycerin patch, metoprolol tartrate total of 7.5 mg IV and 50 mg p.o., ceftriaxone and vancomycin. Cardiology consulted for new onset congestive heart failure. 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 cc:: cc: Tee Fernandes MD Review of Systems Review of Systems Systems Reviewed: All systems reviewed, normal except as documented Exam Vital Signs Temp Pulse Resp BP Pulse Ox O2 Del Method O2 Flow Rate 97.4 F 108 H 29 H 158/114 H 100 BiPAP 10 09/01/25 08:00 09/01/25 08:21 09/01/25 08:00 09/01/25 08:21 09/01/25 08:00 09/01/25 08:00 09/01/25 08:00 FiO2 40 09/01/25 08:00 Narrative Exam General: AOx3, no acute distress, able to speak full sentences, previously on BiPAP now on NC HEENT: NC/AT, mucous membranes moist, bilateral sclera anicteric Cardiovascular: tachycardic but rhythm, S1/S2 present, no murmurs appreciated Pulmonary: mild bibasilar crackles appreciated Abdominal: soft, non-tender, non-distended, no rebound/guarding, normal bowel sounds present Musculoskeletal: normal ROM, 1-2+ bilateral lower extremity pitting edema Skin: warm and dry, intact, no rashes Neuro: CN II-XII intact, no focal deficits Results Labs 09/01/25 09:35 09/01/25 15:16 Labs: Short CBC 08/31/25 09/01/25 Range/Units 23:07 09:35 WBC 21.0 H 15.5 H D (3.8-10.6) Thou/mm3 Hgb 7.3 L 8.9 L D (13.5-16.0) g/dL Hct 23.2 L 27.1 L (41.0-53.0) % Plt Count 554 H 532 H (140-440) Thou/mm3 BMP 08/31/25 23:07 Sodium 130 L Potassium 4.4 Chloride 99 Carbon Dioxide 12.6 L* BUN 72 H Creatinine 7.4 H* Glucose 205 H Calcium 9.4 Cardiac Enzymes 08/31/25 Range/Units 23:07 Troponin I 0.108 H* (0.0-0.045) ng/mL Liver Function 08/31/25 Range/Units 23:07 Total Bilirubin 0.2 L (0.3-1.2) mg/dL Direct Bilirubin < 0.1 (0.0-0.3) mg/dL AST 14 (0-34) U/L ALT 15 (10-49) U/L Alkaline Phosphatase 80 (46-116) U/L Albumin 3.8 (3.4-4.8) gm/dL Urine 08/31/25 Range/Units 23:10 Urine Color Lt-Yellow (Lt Yel-Yel) Urine Clarity Clear (Clear/Hazy) Urine pH 5.5 (5.0-7.0) Ur Specific [place] 1.008 (1.001-1.035) Urine Protein Trace (Neg - Trace) Urine Glucose (UA) Negative (Negative) ABG Interpretation ABG results: 08/31/25 09/01/25 23:24 07:55 ABG pH 7.35 7.39 ABG pCO2 23 L 22 L ABG pO2 123 H 147 H D ABG HCO3 13 L 13 L ABG O2 Saturation 99 H 100 H ABG Base Excess -11 L -10 L Quality Measures Quality Measures none Medications Home Medications and Allergies Home Medications ?Medication ?Instructions ?Recorded ?Confirmed ?Type No Known Home Medications 09/01/2507/19 History Allergies Allergy/AdvReac Type Severity Reaction Status Date / Time NKA* Allergy Uncoded 08/31/25 22:56 Visit Medications Acetaminophen (Acetaminophen 325 Mg Tablet) 650 mg PO Q6H PRN PRN Reason: Fever >100 or pain 1-3 Stop: 10/01/25 01:59 Bumetanide (Bumetanide Inj 0.25 Mg/Ml Vial 4 Ml) 2 mg IVP DAILY [facility] Stop: 10/01/25 08:59 Last Admin: 09/01/25 08:21 Dose: 2 mg Dextrose (Dextrose 50%-Water Inj 50 Ml Syringe) 25 ml IV Q15MIN PRN PRN Reason: BG 50-70 responsive npo pt Stop: 10/01/25 07:32 Dextrose (Dextrose 50%-Water Inj 50 Ml Syringe) 50 ml IV Q15MIN PRN PRN Reason: BG <50 OR BG <70 & pt unresponsive Stop: 10/01/25 07:32 Glucagon (Glucagon Inj 1 Mg Vial) 1 mg IM Q15MIN PRN PRN Reason: BG <70, and no IV access Heparin Sodium (Porcine) (Heparin Sod Inj 5000 Unit/Ml Vial) 5,000 unit SC Q8HR [facility] Stop: 09/15/25 05:59 Last Admin: 09/01/25 08:22 Dose: 5,000 unit Ceftriaxone Sodium/Dextrose (Rocephin/D5w 1gm Iv Premix) 1 gm in 50 mls @ 100 mls/hr IV QDAY [facility] Stop: 09/08/25 09:40 Last Admin: 09/01/25 10:25 Dose: 100 mls/hr Azithromycin 500 mg/ Sodium (Chloride) 250 mls @ 250 mls/hr IV QDAY [facility] Stop: 09/08/25 09:40 Insulin Human Lispro (Insulin Lispro (Admelog) 1 Unit/0.01 Ml Unit) 0 unit SC ACHS [facility]; Protocol Stop: 10/01/25 11:29 Pharmacy Consult (Pharmacy Renal Dose Adjustment 1 Ea) 1 each XX PRN PRN PRN Reason: CONSULT Stop: 10/01/25 07:29 Sennosides (Senna/Docusate Sod 1 Tab Tablet) 1 tab PO QDAY PRN; Protocol PRN Reason: CONSTIPATION Stop: 10/01/25 03:16 Sodium Bicarbonate (Sodium Bicarbonate 650 Mg Tablet) 650 mg PO BID [facility] Stop: 10/01/25 08:59 Last Admin: 09/01/25 08:24 Dose: 650 mg Discontinued Medications Acetaminophen (Acetaminophen 325 Mg Tablet) 650 mg PO Q6H PRN PRN Reason: Fever >101.5 Stop: 10/01/25 01:59 Acetaminophen (Acetaminophen 325 Mg Tablet) 650 mg PO Q6H PRN PRN Reason: PAIN SCALE 1-3 (mild Stop: 10/01/25 01:59 Carvedilol (Carvedilol 3.125 Mg Tablet) 3.125 mg PO BIDWM [facility] Stop: 10/01/25 07:59 Carvedilol (Carvedilol 3.125 Mg Tablet) 6.25 mg PO BIDWM [facility] Stop: 10/02/25 07:59 Furosemide (Furosemide Inj 10 Mg/Ml 4ml Vial) 40 mg IVP X1 ONE Stop: 08/31/25 22:57 Last Admin: 08/31/25 23:15 Dose: 40 mg Ceftriaxone Sodium/Dextrose (Rocephin/D5w 1gm Iv Premix) 1 gm in 50 mls @ 100 mls/hr IV X1 ONE Stop: 09/01/25 00:04 Last Infusion: 09/01/25 00:19 Dose: Infused Vancomycin HCl 1,000 mg/ (Sodium Chloride) 250 mls @ 150 mls/hr IV X1 ONE Stop: 09/01/25 01:42 Last Infusion: 09/01/25 02:09 Dose: Infused Piperacillin Sod/Tazobactam (Sod 4.5 gm/ Sodium Chloride) 100 mls @ 200 mls/hr IV Q12HR [facility]; Protocol Stop: 09/08/25 02:07 Piperacillin Sod/Tazobactam (Sod 4.5 gm/ Sodium Chloride) 100 mls @ 200 mls/hr IV X1 ONE; Protocol Stop: 09/01/25 02:59 Metoprolol Tartrate (Metoprolol Tartrate Inj 1 Mg/Ml Amp 5 Ml) 2.5 mg IVP X1 ONE Stop: 08/31/25 22:57 Last Admin: 08/31/25 23:16 Dose: 2.5 mg Metoprolol Tartrate (Metoprolol Tartrate Inj 1 Mg/Ml Amp 5 Ml) 5 mg IVP X1 ONE Stop: 09/01/25 00:02 Last Admin: 09/01/25 00:19 Dose: 5 mg Metoprolol Tartrate (Metoprolol Tartrate 25 Mg Tablet) 50 mg PO X1 ONE Stop: 09/01/25 00:02 Last Admin: 09/01/25 00:18 Dose: 50 mg Morphine Sulfate (Morphine Sulf Inj 4 Mg/Ml Vial) 2 mg IV X1 ONE Stop: 08/31/25 22:57 Last Admin: 08/31/25 23:19 Dose: Not Given Nitroglycerin (Nitroglycerin Oint 2% 1 Inch Packet) 2 inch TOP X1 ONE Stop: 08/31/25 22:57 Last Admin: 08/31/25 23:15 Dose: 2 inch Pharmacy Consult (Vancomycin Pharmacy To Dose 1 Each Each) 1 each IV QDAY PRN PRN Reason: RX Stop: 10/01/25 08:59 Sodium Chloride (Sodium Chloride Rt 10% 15 Ml Nebu) 5 ml INH X1 ONE Stop: 09/01/25 02:43 Assessment & Plan Plan Moshe Hartman is a 64-year-old male with no reported past medical history who is admitted for acute hypoxic respiratory failure and cardiology consulted for possible new onset congestive heart failure. #Acute hypoxic respiratory failure #New onset HFrEF (30% on 08/2025) #Decompensated congestive heart failure #NSTEMI type II/demand ischemia #? Myocarditis, viral Presents with acute onset, progressive shortness of breath over the course of a few days with associated fever, chills, edema and noted to have sick contact. No chest discomfort, orthopnea, or PND. Apparently exposed to bat and rodent droppings in attic and since has had episodes of recurrent illnesses. Given acuity of symptoms, suspect presentation to be due to silent cardiac pathology from prior exposure (possibly myocarditis) exacerbated by current respiratory infection given elevated WBC, ESR, CRP, and Pro-Chidi (though may be elevated from myocarditis). Lower suspicion for ischemic event given hypertension may be only risk factor as A1c 5.3%, lipid panel unremarkable, and TSH wnl. Thus, clinically suspected myocarditis on basis of new/acute onset of dyspnea/SOB, elevated troponins, T wave inversions in V3/4/5, and echo findings of EF of 30%, severe LV global hypokinesis, moderate to severe MR, moderate to severe TR, moderate pulmonary hypertension, small pericardial effusion. ? Agree with Bumex 2 mg IV daily (3.8 L urine output since admission, net -2.8 L) ? Agree with discontinuation of beta sujata ? Continue strict I/O, 1.5 L fluid restriction, and daily weights ? BiPAP as needed ? Pending VQ scan for further evaluation ? Once stable, can start introducing GDMT as tolerated ? Once stable, can consider outpatient cardiac MR given that gold standard for diagnosis is endomyocardial biopsy #Sinus tachycardia EKG and telemetry show sinus tachycardia with some nonspecific T wave abnormalities. Suspect to be due to underlying infection and CHF exacerbation. ? Treat underlying cause(s) #CAP #Acute vs chronic kidney injury #Lactic acidosis, resolved #AGMA #UTI #Normocytic anemia #Transaminitis ? Continue management per primary team ----- Plan discussed with attending physician Dr. Ritesh Rene MD PGY-2 Internal Medicine
[2025-09-01 10:29] LABS: Troponin I 0.126 ng/mL (0.0-0.045)
[2025-09-01] MEDS: AZITHROMYCIN INJ 500 MG in SODIUM CHLORIDE 0.9% 250 ML 250 ML 250 MG IV (10:33)
[2025-09-01 11:40] LABS: B-Type Natriuretic Peptide 2693 pg/mL (0-100)
[2025-09-01 11:45] LABS: Amphetamine/Methamp Scrn,U Negative (Negative); Barbiturate Screen,Urine Negative (Negative); Benzodiazepines Screen,Urine Negative (Negative); Benzoylecgonine Screen, Ur Negative (Negative); Fentanyl Screen,Urine Negative (Negative); Opiate Screen,Urine Negative (Negative); THC Screen,Urine Negative (Negative)
[2025-09-01 12:10] LABS: Cocci Serology, IgM Negative (Negative)
[2025-09-01 15:42] LABS: Alanine Aminotransferase 108 U/L (10-49); Albumin, Serum 3.5 gm/dL (3.4-4.8); Albumin/Globulin Ratio 1.2 (1.2-2.2); Alkaline Phosphatase 72 U/L (46-116); Anion Gap 14 (7-16); Aspartate Amino Transferase 102 U/L (0-34); BUN/Creatinine Ratio 10 Ratio (12-20); Bilirubin,Total 0.2 mg/dL (0.3-1.2); Blood Urea Nitrogen 75 mg/dL (9-23); Calcium 9.3 mg/dL (8.3-10.6); Calcium (Corrected) 9.7 mg/dL (8.5-10.1); Carbon Dioxide 17.3 mMol/L (20.0-31.0); Chloride 102 mMol/L (98-107); Creatinine (Component) 7.2 mg/dL (0.6-1.3); Estimated Creatinine Clearance 9.1 mL/min (>60); Globulin 3.0 gm/dL (2.3-3.5); Glucose 131 mg/dL (74-106); Osmolality,Calculated 290 (275-295); Potassium 4.5 mMol/L (3.4-5.1); Sodium 133 mMol/L (136-145); Total Protein 6.5 gm/dL (5.7-8.2); eGFR 8 See Note
[2025-09-01 15:43] LABS: Troponin I 0.083 ng/mL (0.0-0.045)
--- NOTE | 2025-09-01 15:45 | PC.SS ---
Follow up note: IV diuresis. Possible new dialysis. Pending cultures. Pt will return home upon dc.
--- NOTE | 2025-09-01 16:07 | PC.SS ---
SS met with patient regarding his d/c plan. Pt is alert/oriented. Pt was admitted for CHF Exacerbation. Pt confirmed demographic and contact information is correct on facesheet. Pt resides with and. Pt ambulates independently without assistance or DME. Pt is ok with all ADLs. Pt is currently on 3 liters of O2. Pt does not utilize O2 at home. Patient?s pharmacy of choice is [facility] in [employer]. Pt named his , Malika Byrne medical decision maker if he is unable. Patient?s choice is to return home upon d/c. Pt does not have an advance directive, SS offered, and pt declined. Pt states he not diabetic and is not established with dialysis. Pt does not have PCP. SS provided verbal choices for PCP. Pt and are agreeable to follow up with [facility] from [facility]. Pt was provided with Dr. Anderson information. SS arranged appointment with Dr. Bethany Moon at [facility] on September 15, 2025 at 1pm. D/C plan: Return home Next of Kin: Malika Byrne, , phone# [phone] PCP: Will establish at [facility] Address: Correct on facesheet
--- NOTE | 2025-09-01 17:18 | PC.NURSE ---
informed DR. Flores of pt bp 145/92 hr 112
--- NOTE | 2025-09-01 19:54 | PC.RT ---
sputum obtain at sent to lab
--- NOTE | 2025-09-01 19:55 | PC.RT ---
:pt expectorated sputum at moderate green thin.
[2025-09-01 21:50] LABS: Base Excess, Venous -7 (-3-3); O2 Saturation, Venous 98 % (96-97); PCO2, Venous 22 mmHg (36-56); PO2, Venous 100 mmHg (15-58); pH, Venous 7.46 (7.33-7.66)
--- NOTE | 2025-09-01 22:42 | ESCONSULT_ITS ---
RE: ANDRES HINTON : 1960 DATE OF CONSULTATION: 09/01/2025 REASON FOR REFERRAL: Acute kidney injury. REFERRING PHYSICIAN: Dr. Pinto. HISTORY OF PRESENT ILLNESS: This patient is a 64-year-old gentleman with no significant past medical history and has never seen a primary care physician at least in the past 5 years, who presented to emergency room last night with increasing shortness of breath, orthopnea and was found hypoxic with O2 saturation of 85% on room air. The patient about 3 days ago started having chills and fever. He started getting more short of breath in the past 2 days. When he presented to the emergency room last night, he was hypertensive with blood pressures in the 140s- 180s/90s and heart rate in the 100 range. Further evaluation revealed that he has a sodium of 130, bicarbonate of 12.6, creatinine of 7.4, and BUN of 72. BNP was likewise elevated at 1973. CRP is more than 10. Chest x-ray revealed extensive bilateral pneumonia. He was subsequently admitted and was started on IV Rocephin, IV vancomycin, and was given metoprolol for tachycardia. His hemoglobin was also noted to be low at 7.3 with white count of 21,000. He was admitted at telemetry and I was asked to see him to manage his acute kidney injury. His said that he never was told of any kidney problem at all. PAST MEDICAL HISTORY: None. ALLERGIES: NO KNOWN DRUG ALLERGIES. SURGICAL HISTORY: Left middle finger was amputated. SOCIAL HISTORY: No smoking, alcohol abuse or other drug abuse. PHYSICAL EXAMINATION: GENERAL: He is awake, alert, oriented, by the bedside. VITAL SIGNS: Blood pressure of 134/90, heart rate of 117, and respiratory rate of 31. HEENT: Anicteric sclerae. Normocephalic. NECK: Supple with JVD. CHEST AND LUNGS: Decreased breath sounds bilaterally. CARDIAC: Without murmur. ABDOMEN: Soft and nontender. EXTREMITIES: No edema. CURRENT MEDICATIONS: 1. Acetaminophen. 2. Zithromax 500 mg IV daily. 3. Bumetanide 2 mg IV daily. 4. Rocephin 1 g daily. 5. Furosemide 40 mg x1. 6. Heparin 5000 units subcutaneously q.8. 7. Hydralazine 10 mg IV q.6 p.r.n. 8. Lispro sliding scale. 9. Metoprolol 10 mg p.o. x1. 10. Metoprolol tartrate 2.5 mg IV x1. 11. Vancomycin 1 g x1. LABORATORY DATA: Hemoglobin 7.3, WBC 21,000, platelet count 554,000, sodium 130, potassium of 4.4, chloride 99, CO2 of 12.6, BUN 72, creatinine 7.4, glucose 205, lactic acid 3.6, calcium 9.4, troponin 0.108, CRP more than 10, BNP 1973, procalcitonin 1.49, and TSH 3.45. Chest x-ray revealed extensive bilateral lung opacity consistent with pneumonia. ASSESSMENT: 1. Acute kidney injury, most likely secondary to cardiorenal syndrome versus sepsis due to pneumonia. 2. Bilateral pneumonia. 3. Decompensated congestive heart failure. 4. Anemia, most likely secondary to chronic kidney disease. 5. Hypoxia. 6. Lactic acidosis, possibly sepsis versus decreased perfusion due to congestive heart failure. PLAN: I suspect the patient has decompensated congestive heart failure leading to lactic acidosis and fluid overload. I agree with continuation of Bumex 2 mg IV daily to decrease preload and hopefully increase cardiac output. I will obtain a bilateral kidney ultrasound to evaluate for chronic kidney disease. I agree with obtaining 2D echocardiogram. The patient will be followed closely. If kidney ultrasound would confirm presence of CKD, then I will start him on erythropoiesis-stimulating agent like Retacrit. DT: 21:30:22 TT: 22:40:00 Ref: [id number] - TID: [id number]
[2025-09-02] VITALS (10 sets, daily range): BP systolic 119–162; BP diastolic 86–105; PULSE 81–119; RESP 16–100; TEMP 36.1–36.7; O2SAT 94–100; BMI 19.1
[2025-09-02 06:03] LABS: Basophils # (Auto) 0.1 Thou/mm3 (0.0-0.2); Basophils % (Auto) 1 % (0-2.5); Eosinophils # (Auto) 0.6 Thou/mm3 (0.0-0.5); Eosinophils % (Auto) 5 % (0-10); Hematocrit 26.6 % (41.0-53.0); Immature Granulocytes Auto 0.18 Thou/mm3 (0.00-0.00); Lymphocytes # (Auto) 1.3 Thou/mm3 (1.0-4.8); Lymphocytes % (Auto) 11 % (10-50); Mean Corpuscular HGB Conc 32.3 g/dl (31.0-37.0); Mean Corpuscular Hemoglobin 28.0 pg (25.0-35.0); Mean Corpuscular Volume 87 fL (80-100); Monocytes # (Auto) 1.1 Thou/mm3 (0.0-0.8); Monocytes % (Auto) 9 % (0-12); Neutrophils # (Auto) 8.4 Thou/mm3 (1.8-7.7); Neutrophils % (Auto) 72 % (37-80); Nucleated Red Blood Cell # 0.00 Thou/mm3 (0.00-0.00); Nucleated Red Blood Cell % 0 /100 WBC (0); Platelet Count 546 Thou/mm3 (140-440); RDW Standard Deviation 46.0 fL (35.1-43.9); Red Blood Count 3.07 Miln/mm3 (4.50-5.90); White Blood Count 11.7 Thou/mm3 (3.8-10.6)
[2025-09-02 06:13] LABS: Hemoglobin 8.6 g/dL (13.5-16.0)
[2025-09-02] MEDS: HEPARIN SOD INJ 5000 UNIT/ML VIAL SC ×3 (06:23→21:00)
[2025-09-02 06:40] LABS: Alanine Aminotransferase 94 U/L (10-49); Albumin, Serum 3.6 gm/dL (3.4-4.8); Albumin/Globulin Ratio 1.1 (1.2-2.2); Alkaline Phosphatase 74 U/L (46-116); Anion Gap 18 (7-16); Aspartate Amino Transferase 52 U/L (0-34); BUN/Creatinine Ratio 11 Ratio (12-20); Bilirubin,Total 0.2 mg/dL (0.3-1.2); Blood Urea Nitrogen 77 mg/dL (9-23); Calcium 9.9 mg/dL (8.3-10.6); Calcium (Corrected) 10.2 mg/dL (8.5-10.1); Carbon Dioxide 17.3 mMol/L (20.0-31.0); Chloride 103 mMol/L (98-107); Creatinine (Component) 6.8 mg/dL (0.6-1.3); Estimated Creatinine Clearance 9.8 mL/min (>60); Globulin 3.2 gm/dL (2.3-3.5); Glucose 87 mg/dL (74-106); Magnesium 1.8 mg/dL (1.6-2.6); Osmolality,Calculated 297 (275-295); Phosphorous 6.8 mg/dL (2.4-5.1); Potassium 4.0 mMol/L (3.4-5.1); Sodium 138 mMol/L (136-145); Total Protein 6.8 gm/dL (5.7-8.2); eGFR 8 See Note
--- NOTE | 2025-09-02 08:31 | ESPR_ITS ---
<Statement entered by Clau Awad MD - 09/05/25 19:03> I personally examined evaluated the patient in telemetry floor with PGY 2 Dr. Jc RENE and the patient is doing quite well he more than 2 L urine output total shortness of breath clinically improving congestive heart failure improving JVD still present continue with IV diuretic therapy patient is also acute nonoliguric phase of renal failure with excellent urine output. Continue present medication will review cardiac echo upon completion. The patient had a cardiac echo showed severe LV dysfunction ejection fraction 30% with global hypokinesis. Documentation for date of: 09/02/25 Subjective Subjective Interval history: No acute overnight events. Seen and examined at bedside and patient resting comfortably on 2 L NC, saturating 97%. States he was able to be without supplemental oxygen for a couple hours and saturated in low 90s but felt slightly dyspneic. Still endorses some discomfort around [place] area. Urine continues to have sediment but appears more yellow today compared to yesterday. Blood pressure 160/100, pulse 110s. Leukocytosis improving, hemoglobin stable, renal function showing signs of improvement and patient has good urine output with neprhology following. Transaminitis also improving. Exam Vital Signs Temp Pulse Resp BP Pulse Ox O2 Del Method O2 Flow Rate 97.0 F 110 H 20 157/104 H 99 Room Air 2 09/02/25 08:00 09/02/25 08:00 09/02/25 08:00 09/02/25 08:00 09/02/25 08:00 09/02/25 08:00 09/02/25 07:14 FiO2 40 09/01/25 08:00 Narrative Exam General: AOx3, no acute distress, able to speak full sentences, on 2 L NC HEENT: NC/AT, mucous membranes moist, bilateral sclera anicteric Cardiovascular: tachycardic but normal rhythm, S1/S2 present, no murmurs appreciated Pulmonary: lungs clear to auscultation bilaterally Abdominal: soft, non-tender, non-distended, no rebound/guarding, normal bowel sounds present Musculoskeletal: normal ROM, no lower extremity edema Skin: warm and dry, intact, no rashes Neuro: CN II-XII intact, no focal deficits Objective Labs 09/03/25 05:38 09/03/25 05:38 Labs: Laboratory Results - last 24 hr 08/31/25 09/01/25 09/01/25 23:07 09:35 11:12 WBC 15.5 H D RBC 3.15 L Hgb 8.9 L D Hct 27.1 L MCV 86 MCH 28.3 MCHC 32.8 RDW Std Deviation 44.6 H Plt Count 532 H Neut % (Auto) 87 H Lymph % (Auto) 5 L [place] % (Auto) 6 Eos % (Auto) 0 Baso % (Auto) 0 Neut # (Auto) 13.5 H Lymph # (Auto) 0.8 L [place] # (Auto) 0.9 H Eos # (Auto) 0.1 Baso # (Auto) 0.1 Immature Gran # (Auto) 0.21 H Absolute Nucleated RBC 0.00 Immature Gran % 1 H Nucleated RBC % 0 VBG pH VBG pCO2 VBG pO2 VBG O2 Sat ([place]) VBG Base Excess Sodium 132 L Potassium 5.0 D Chloride 101 Carbon Dioxide 14.9 L* Anion Gap 16 BUN 77 H Creatinine 7.3 H* Estim Creat Clear Calc 9.0 L eGFR 8 L* BUN/Creatinine Ratio 11 L Glucose [address] Glu mg/dL 105 Hemoglobin A1c 5.3 Calculated Osmolality 288 Calcium 9.7 Corrected Calcium 9.9 Phosphorus Magnesium 2.1 Total Bilirubin 0.2 L AST 112 H ALT 104 H Alkaline Phosphatase 80 Total Creatine Kinase 35 Troponin I 0.126 H* B-Natriuretic Peptide 2693 H* Total Protein 7.1 Albumin 3.8 Globulin 3.3 Albumin/Globulin Ratio 1.2 Triglycerides 90 Cholesterol 96 L LDL Cholesterol, Calc 46 HDL Cholesterol 32 L Cholesterol/HDL Ratio 3.0 L Urine Opiates Screen Negative Urine Fentanyl Screen Negative Ur Barbiturates Screen Negative U Amphetamin/Meth Scrn Negative U Benzodiazepines Scrn Negative U Cocaine Metab Screen Negative U Marijuana (THC) Screen Negative Coccidioides IgM Ab Negative 09/01/25 09/01/25 09/02/25 15:16 21:32 05:00 WBC 11.7 H RBC 3.07 L Hgb 8.6 L Hct 26.6 L MCV 87 MCH 28.0 MCHC 32.3 RDW Std Deviation 46.0 H Plt Count 546 H Neut % (Auto) 72 Lymph % (Auto) 11 [place] % (Auto) 9 Eos % (Auto) 5 Baso % (Auto) 1 Neut # (Auto) 8.4 H Lymph # (Auto) 1.3 [place] # (Auto) 1.1 H Eos # (Auto) 0.6 H Baso # (Auto) 0.1 Immature Gran # (Auto) 0.18 H Absolute Nucleated RBC 0.00 Immature Gran % 2 H Nucleated RBC % 0 VBG pH 7.46 VBG pCO2 22 L VBG pO2 100 H VBG O2 Sat ([place]) 98 H VBG Base Excess -7 L Sodium 133 L 138 Potassium 4.5 D 4.0 D Chloride 102 103 Carbon Dioxide 17.3 L 17.3 L Anion Gap 14 18 H BUN 75 H 77 H Creatinine 7.2 H* 6.8 H* Estim Creat Clear Calc 9.1 L 9.8 L eGFR 8 L* 8 L* BUN/Creatinine Ratio 10 L 11 L Glucose [address] Glu mg/dL Hemoglobin A1c Calculated Osmolality 290 297 H Calcium 9.3 9.9 Corrected Calcium 9.7 10.2 H Phosphorus 6.8 H Magnesium 1.8 Total Bilirubin 0.2 L 0.2 L AST 102 H 52 H ALT 108 H 94 H Alkaline Phosphatase 72 74 Total Creatine Kinase Troponin I 0.083 H* B-Natriuretic Peptide Total Protein 6.5 6.8 Albumin 3.5 3.6 Globulin 3.0 3.2 Albumin/Globulin Ratio 1.2 1.1 L Triglycerides Cholesterol LDL Cholesterol, Calc HDL Cholesterol Cholesterol/HDL Ratio Urine Opiates Screen Urine Fentanyl Screen Ur Barbiturates Screen U Amphetamin/Meth Scrn U Benzodiazepines Scrn U Cocaine Metab Screen U Marijuana (THC) Screen Coccidioides IgM Ab ABG Interpretation ABG results: 08/31/25 09/01/25 09/01/25 23:24 07:55 21:32 ABG pH 7.35 7.39 ABG pCO2 23 L 22 L ABG pO2 123 H 147 H D ABG HCO3 13 L 13 L ABG O2 Saturation 99 H 100 H ABG Base Excess -11 L -10 L VBG pH 7.46 VBG pCO2 22 L VBG pO2 100 H VBG Base Excess -7 L Quality Measures Quality Measures none Assessment & Plan Assessment Current Active Medications: Generic Name Dose Route Start Last Admin Trade Name Freq PRN Reason Stop Dose Admin Acetaminophen 650 mg 09/01/25 07:31 Acetaminophen 325 Mg Tablet PO 10/01/25 01:59 Q6H PRN Fever >100 or pain 1-3 Bumetanide 2 mg 09/01/25 09:00 09/01/25 08:21 Bumetanide Inj 0.25 Mg/Ml Vial 4 Ml IVP 10/01/25 08:59 2 mg DAILY BRANNON Administration Dextrose 25 ml 09/01/25 07:33 Dextrose 50%-Water Inj 50 Ml Syringe IV 10/01/25 07:32 Q15MIN PRN BG 50-70 responsive npo pt Dextrose 50 ml 09/01/25 07:33 Dextrose 50%-Water Inj 50 Ml Syringe IV 10/01/25 07:32 Q15MIN PRN BG <50 OR BG <70 & pt unresponsive Glucagon 1 mg 09/01/25 07:33 Glucagon Inj 1 Mg Vial IM Q15MIN PRN BG <70, and no IV access Heparin Sodium (Porcine) 5,000 unit 09/01/25 06:00 09/02/25 06:23 Heparin Sod Inj 5000 Unit/Ml Vial SC 09/15/25 05:59 5,000 unit Q8HR BRANNON Administration Hydralazine HCl 10 mg 09/01/25 18:17 Hydralazine Inj 20 Mg/Ml Vial IVP 10/01/25 18:16 Q6HR PRN SBP>180 DBP>110 Ceftriaxone Sodium/Dextrose 1 gm in 50 mls @ 100 mls/hr 09/01/25 09:41 09/01/25 10:25 Rocephin/D5w 1gm Iv Premix IV 09/08/25 09:40 100 mls/hr QDAY BRANNON Administration Azithromycin 500 mg/ Sodium 250 mls @ 250 mls/hr 09/01/25 09:41 09/01/25 10:33 Chloride IV 09/08/25 09:40 250 mls/hr QDAY BRANNON Administration Magnesium Sulfate 2 gm in 50 mls @ 25 mls/hr 09/02/25 08:05 Magnesium Sulfate Ivpb IV 09/02/25 10:04 X1 ONE Potassium Chloride 10 meq in 100 mls @ 100 mls/hr 09/02/25 08:05 Kcl Ivpb IV 09/02/25 10:04 Q1H BRANNON Insulin Human Lispro 0 unit 09/01/25 11:30 09/02/25 07:43 Insulin Lispro (Admelog) 1 Unit/0.01 Ml Unit SC 10/01/25 11:29 Not Given ACHS BRANNON Protocol Pharmacy Consult 1 each 09/01/25 07:30 Pharmacy Renal Dose Adjustment 1 Ea XX 10/01/25 07:29 PRN PRN CONSULT Sennosides 1 tab 09/01/25 03:17 Senna/Docusate Sod 1 Tab Tablet PO 10/01/25 03:16 QDAY PRN CONSTIPATION Protocol Sevelamer Carbonate 800 mg 09/02/25 12:00 Sevelamer Carbonate 800 Mg Tablet PO 10/02/25 11:59 TIDWM BRANNON Sodium Bicarbonate 650 mg 09/01/25 09:00 09/01/25 20:24 Sodium Bicarbonate 650 Mg Tablet PO 10/01/25 08:59 650 mg BID BRANNON Administration Plan Moshe Hartman is a 64-year-old male with no reported past medical history who is admitted for acute hypoxic respiratory failure and cardiology consulted for possible new onset congestive heart failure. #Acute hypoxic respiratory failure, improving #New onset HFrEF (30% on 08/2025) #Decompensated congestive heart failure, improving #NSTEMI type II/demand ischemia, improving #? Myocarditis, viral #Tricuspid regurgitation, moderate-severe #Mitral regurgitation, moderate-severe Presents with acute onset, progressive shortness of breath over the course of a few days with associated fever, chills, edema and noted to have sick contact. No chest discomfort, orthopnea, or PND. Apparently exposed to bat and rodent droppings in attic and since has had episodes of recurrent illnesses. Given acuity of symptoms, suspect presentation to be due to silent cardiac pathology from prior exposure (possibly myocarditis) exacerbated by current respiratory infection given elevated WBC, ESR, CRP, and Pro-Chidi (though may be elevated from myocarditis). Lower suspicion for ischemic event given hypertension may be only risk factor as A1c 5.3%, lipid panel unremarkable, and TSH wnl. Thus, clinically suspected myocarditis on basis of new/acute onset of dyspnea/SOB, elevated troponins, T wave inversions in V3/4/5, and echo findings of EF of 30%, severe LV global hypokinesis, moderate to severe MR, moderate to severe TR, moderate pulmonary hypertension, small pericardial effusion. ? Continue Bumex 2 mg IV daily (net -3365 cc urine output in last 24 hours) ? Continue strict I/O, 1.5 L fluid restriction, and daily weights ? BiPAP as needed ? Pending VQ scan for further evaluation ? Once stable, can start introducing GDMT as tolerated ? Once stable, can consider outpatient cardiac MR given that gold standard for diagnosis is endomyocardial biopsy #Sinus tachycardia EKG and telemetry show sinus tachycardia with some nonspecific T wave abnormalities. Suspect to be due to underlying infection and CHF exacerbation. ? Treat underlying cause(s) #CAP #Acute vs chronic kidney injury, improving #Lactic acidosis, resolved #AGMA, improving #UTI #Normocytic anemia #Transaminitis, improving ? Continue management per primary team ----- Plan discussed with attending physician Dr. Ritesh Rene MD PGY-2 Internal Medicine
[2025-09-02 08:47] LABS: HIV (1&2) Antibody Rapid Non-Reactive
[2025-09-02] MEDS: AZITHROMYCIN INJ 500 MG in SODIUM CHLORIDE 0.9% 250 ML 250 ML 250 MG IV (09:23)
[2025-09-02] MEDS: BUMETANIDE INJ 0.25 MG/ML VIAL 4 ML 2 MG IVP (09:24)
[2025-09-02] MEDS: cefTRIAXone/D5w 1gm IV premix 1 GM/50 ML BAG IV (09:24)
[2025-09-02] MEDS: SODIUM BICARBONATE 650 MG TABLET PO ×2 (09:27→21:00)
--- NOTE | 2025-09-02 09:34 | ESPR_ITS ---
<Statement entered by Amrit Cleveland MD - 09/05/25 12:14> I reviewed above note and agree with findings and plans. I have also personally examined the patient with medicine team and went over assessment and plan with medical team including electrical intern and resident physician. <Statement entered by Bear Rodney MD - 09/02/25 15:45> I saw and examined patient personally and supervised PGY 1 resident, Dr. Flores with formulating a management plan. I agree with the documentation with the exceptions as listed below. Mr. Hartman is a 64 y/o male with no reported PMHx who presented with shortness of breath, orthopnea, palpitations, unproductive cough, dysuria x2 days. Admitted for acute decompensated CHF exacerbation, b/l PNA, UTI. Problem list: 1. Acute respiratory failure with hypoxia secondary to acute decompensated systolic congestive heart failure exacerbation?improving 2. Community-acquired pneumonia 3. NSTEMI type II?resolving 4. Acute kidney injury prerenal versus renal ? improving 5. Possible cardiorenal syndrome 6. Lactic acidosis?resolved 7. Leukocytosis?improving 8. UTI 9. Anion gap metabolic acidosis?improving 10. Transaminitis?improving 11. Hyperphosphatemia Patient had -3.6 L fluid balance in past 24 hours. Continues to be on diuresis with Bumex 2 Mg IV daily. This morning patient hypotensive with SBP was in 150s. Etiology of his heart failure possibly due to longstanding undiagnosed hypertension or possibly viral myocarditis leading to heart failure. Patient will need nuclear medicine cardiac MRI as outpatient, only endomyocardial biopsy cannot definitively rule in or out viral myocarditis. Patient continues to be on 2L nasal cannula and is ambulating without complaints. Will continue to monitor kidney function and urine output daily. call taker, Dr. Feliciano Awad consulted. Appreciate recommended Patient's BUN and creatinine improved slightly from 75-74 and 7.2-6.8 respectively. Transaminitis is also improving. Most likely secondary to congestive hepatopathy and cardiorenal syndrome. Will continue diuresis and monitoring kidney function. Started on sevelamer for hyperphosphatemia. Nephrology, Dr Chisholm on board. Plan of care discussed with Attending Dr. Megha Rodney MD PGY 2 Disclaimer: This note was dictated by speech recognition. Minor errors in plant anatomist may be present due to voice recognition software. Documentation for date of: 09/02/25 Subjective Subjective Interval history: Patient examined bedside on ND with present, labs reviewed. Overnight tele sinus tachy 100s. Patient confirmed he wants to be full code for resuscitation. He reports history of HTN 140-150s systolic at grocery store BP machine. There are clots in his urine bag, but he is still urinating through the valdez. Patient has no complaints other than wishes to walk around, ambulation order placed. Dr. Awad was consulted and recommended continue diureses. Weight: 61.142 kg Net balance: (-)3.51L (4.51L was urine) Exam Vital Signs Temp Pulse Resp BP Pulse Ox O2 Del Method O2 Flow Rate 97.0 F 110 H 20 162/105 H 99 Room Air 2 09/02/25 08:00 09/02/25 09:24 09/02/25 08:00 09/02/25 09:24 09/02/25 08:00 09/02/25 08:00 09/02/25 07:14 FiO2 40 09/01/25 08:00 Narrative Exam GENERAL APPEARANCE: AOx3. NAD, activity normal for age, well developed/ well nourished, no cyanosis, pallor, or diaphoresis. HEENT: Normocephalic atraumatic, no facial trauma, neck is supple. Lids/conjunctiva normal. Mucous membranes moist, nares normal, lips/teeth normal uvula midline without oral pharyngeal erythema, exudate or swelling TMs normal bilaterally. No lymphangitis/lymphedema. +JVD CARDIAC: Regular rhythm Tachy rate, S1+S2 heard. No murmurs, rubs, or gallops noted RESPIRATORY: Minor bilateral crackles/rales appreciated, overall clear to auscultation. ABDOMINAL: NBS. Soft, ND/NT. No evidence of fluid wave. No pulsatile masses on exam, rebound tenderness, Huang sign or pain over Mcburney's point. MUSCLES/EXTREMITIES: No abnormal range of motion, no swelling. No pedal edema DERM: Warm, pink and dry. No rashes, dermatoses, petechiae or lesions. NEUROLOGICAL: Speech is clear and appropriate. Normal level of consciousness. Gait and coordination are normal. 5/5 strength in all extremities. PSYCH: Normal mood and affect. Judgement/competence is appropriate : No CVA tenderness Objective Labs 09/02/25 05:00 09/02/25 05:00 Labs: Laboratory Results - last 24 hr 08/31/25 09/01/25 09/01/25 23:07 09:35 11:12 WBC 15.5 H D RBC 3.15 L Hgb 8.9 L D Hct 27.1 L MCV 86 MCH 28.3 MCHC 32.8 RDW Std Deviation 44.6 H Plt Count 532 H Neut % (Auto) 87 H Lymph % (Auto) 5 L [place] % (Auto) 6 Eos % (Auto) 0 Baso % (Auto) 0 Neut # (Auto) 13.5 H Lymph # (Auto) 0.8 L [place] # (Auto) 0.9 H Eos # (Auto) 0.1 Baso # (Auto) 0.1 Immature Gran # (Auto) 0.21 H Absolute Nucleated RBC 0.00 Immature Gran % 1 H Nucleated RBC % 0 VBG pH VBG pCO2 VBG pO2 VBG O2 Sat ([place]) VBG Base Excess Sodium 132 L Potassium 5.0 D Chloride 101 Carbon Dioxide 14.9 L* Anion Gap 16 BUN 77 H Creatinine 7.3 H* Estim Creat Clear Calc 9.0 L eGFR 8 L* BUN/Creatinine Ratio 11 L Glucose [address] Glu mg/dL 105 Hemoglobin A1c 5.3 Calculated Osmolality 288 Calcium 9.7 Corrected Calcium 9.9 Phosphorus Magnesium 2.1 Total Bilirubin 0.2 L AST 112 H ALT 104 H Alkaline Phosphatase 80 Total Creatine Kinase 35 Troponin I 0.126 H* B-Natriuretic Peptide 2693 H* Total Protein 7.1 Albumin 3.8 Globulin 3.3 Albumin/Globulin Ratio 1.2 Triglycerides 90 Cholesterol 96 L LDL Cholesterol, Calc 46 HDL Cholesterol 32 L Cholesterol/HDL Ratio 3.0 L Urine Opiates Screen Negative Urine Fentanyl Screen Negative Ur Barbiturates Screen Negative U Amphetamin/Meth Scrn Negative U Benzodiazepines Scrn Negative U Cocaine Metab Screen Negative U Marijuana (THC) Screen Negative Coccidioides IgM Ab Negative HIV 1&2 Antibody Rapid 09/01/25 09/01/25 09/02/25 15:16 21:32 05:00 WBC 11.7 H RBC 3.07 L Hgb 8.6 L Hct 26.6 L MCV 87 MCH 28.0 MCHC 32.3 RDW Std Deviation 46.0 H Plt Count 546 H Neut % (Auto) 72 Lymph % (Auto) 11 [place] % (Auto) 9 Eos % (Auto) 5 Baso % (Auto) 1 Neut # (Auto) 8.4 H Lymph # (Auto) 1.3 [place] # (Auto) 1.1 H Eos # (Auto) 0.6 H Baso # (Auto) 0.1 Immature Gran # (Auto) 0.18 H Absolute Nucleated RBC 0.00 Immature Gran % 2 H Nucleated RBC % 0 VBG pH 7.46 VBG pCO2 22 L VBG pO2 100 H VBG O2 Sat ([place]) 98 H VBG Base Excess -7 L Sodium 133 L 138 Potassium 4.5 D 4.0 D Chloride 102 103 Carbon Dioxide 17.3 L 17.3 L Anion Gap 14 18 H BUN 75 H 77 H Creatinine 7.2 H* 6.8 H* Estim Creat Clear Calc 9.1 L 9.8 L eGFR 8 L* 8 L* BUN/Creatinine Ratio 10 L 11 L Glucose [address] Glu mg/dL Hemoglobin A1c Calculated Osmolality 290 297 H Calcium 9.3 9.9 Corrected Calcium 9.7 10.2 H Phosphorus 6.8 H Magnesium 1.8 Total Bilirubin 0.2 L 0.2 L AST 102 H 52 H ALT 108 H 94 H Alkaline Phosphatase 72 74 Total Creatine Kinase Troponin I 0.083 H* B-Natriuretic Peptide Total Protein 6.5 6.8 Albumin 3.5 3.6 Globulin 3.0 3.2 Albumin/Globulin Ratio 1.2 1.1 L Triglycerides Cholesterol LDL Cholesterol, Calc HDL Cholesterol Cholesterol/HDL Ratio Urine Opiates Screen Urine Fentanyl Screen Ur Barbiturates Screen U Amphetamin/Meth Scrn U Benzodiazepines Scrn U Cocaine Metab Screen U Marijuana (THC) Screen Coccidioides IgM Ab HIV 1&2 Antibody Rapid Non-Reactive ABG Interpretation ABG results: 08/31/25 09/01/25 09/01/25 23:24 07:55 21:32 ABG pH 7.35 7.39 ABG pCO2 23 L 22 L ABG pO2 123 H 147 H D ABG HCO3 13 L 13 L ABG O2 Saturation 99 H 100 H ABG Base Excess -11 L -10 L VBG pH 7.46 VBG pCO2 22 L VBG pO2 100 H VBG Base Excess -7 L Quality Measures Quality Measures none Assessment & Plan Assessment Current Active Medications: Generic Name Dose Route Start Last Admin Trade Name Teo PRN Reason Stop Dose Admin Acetaminophen 650 mg 09/01/25 07:31 Acetaminophen 325 Mg Tablet PO 10/01/25 01:59 Q6H PRN Fever >100 or pain 1-3 Bumetanide 2 mg 09/01/25 09:00 09/02/25 09:24 Bumetanide Inj 0.25 Mg/Ml Vial 4 Ml IVP 10/01/25 08:59 2 mg DAILY BRANNON Administration Dextrose 25 ml 09/01/25 07:33 Dextrose 50%-Water Inj 50 Ml Syringe IV 10/01/25 07:32 Q15MIN PRN BG 50-70 responsive npo pt Dextrose 50 ml 09/01/25 07:33 Dextrose 50%-Water Inj 50 Ml Syringe IV 10/01/25 07:32 Q15MIN PRN BG <50 OR BG <70 & pt unresponsive Glucagon 1 mg 09/01/25 07:33 Glucagon Inj 1 Mg Vial IM Q15MIN PRN BG <70, and no IV access Heparin Sodium (Porcine) 5,000 unit 09/01/25 06:00 09/02/25 06:23 Heparin Sod Inj 5000 Unit/Ml Vial SC 09/15/25 05:59 5,000 unit Q8HR BRANNON Administration Hydralazine HCl 10 mg 09/01/25 18:17 Hydralazine Inj 20 Mg/Ml Vial IVP 10/01/25 18:16 Q6HR PRN SBP>180 DBP>110 Ceftriaxone Sodium/Dextrose 1 gm in 50 mls @ 100 mls/hr 09/01/25 09:41 09/02/25 09:24 Rocephin/D5w 1gm Iv Premix IV 09/08/25 09:40 100 mls/hr QDAY BRANNON Administration Azithromycin 500 mg/ Sodium 250 mls @ 250 mls/hr 09/01/25 09:41 09/02/25 09:23 Chloride IV 09/08/25 09:40 250 mls/hr QDAY BRANNON Administration Magnesium Sulfate 2 gm in 50 mls @ 25 mls/hr 09/02/25 08:05 Magnesium Sulfate Ivpb IV 09/02/25 10:04 X1 ONE Potassium Chloride 10 meq in 100 mls @ 100 mls/hr 09/02/25 08:05 Kcl Ivpb IV 09/02/25 10:04 Q1H BRANNON Insulin Human Lispro 0 unit 09/01/25 11:30 09/02/25 07:43 Insulin Lispro (Admelog) 1 Unit/0.01 Ml Unit SC 10/01/25 11:29 Not Given ACHS BRANNON Protocol Pharmacy Consult 1 each 09/01/25 07:30 Pharmacy Renal Dose Adjustment 1 Ea XX 10/01/25 07:29 PRN PRN CONSULT Sennosides 1 tab 09/01/25 03:17 Senna/Docusate Sod 1 Tab Tablet PO 10/01/25 03:16 QDAY PRN CONSTIPATION Protocol Sevelamer Carbonate 800 mg 09/02/25 12:00 Sevelamer Carbonate 800 Mg Tablet PO 10/02/25 11:59 TIDWM BRANNON Sodium Bicarbonate 650 mg 09/01/25 09:00 09/02/25 09:27 Sodium Bicarbonate 650 Mg Tablet PO 10/01/25 08:59 650 mg BID BRANNON Administration Plan Mr. Hartman is a 64 y/o male with no reported PMHx who presented with shortness of breath, orthopnea, palpitations, unproductive cough, dysuria x2 days. Admitted for acute CHF exacerbation, b/l PNA, UTI. Patient continues to diurese with good urine output, however kidney panel remains elevated. #Acute decompensated systolic heart failure - resolving #Acute hypoxic respiratory failure - resolving Differentials include CHF exacerbation & pneumonia. 3 days of SOB without productive cough. Desatted to 80% at home. Presented to ED SOB and tachypnic RR:20-40s in respiratory distress with O2:91% improved with Bipap. RRR on physical exam and very slight crackles bilateral crackles on lung auscultation. EKG showed sinus tachycardia with a short MN interval, a prolonged QTC interval:[address]. Chest xray showed bilateral lung opacities and pleural effusions. BNP: 2693, Troponin 0.108 --> 0.126--> 0.083. NYHA class III (Marked limitation of physical activity; comfortable at rest). ASCVD: 10 year CV risk: 7.5%. Patient hypoxia improving therefore cancelled VQ scan. ECHO: severe left ventricle global hypokinesis with severe systolic dysfunction, LVEF: 30%, normal RV size and function. Mild dilated LA. Aortic valve sclerosis without stenosis. Moderate to severe 3+ mitral regurgitation. Moderate to severe tricuspid valve regurgitation. Moderate pulmonary hypertension. Left pleural effusion present. There is a small pericardial effusion without tamponade. Plan: - BiPAP - Consulted cardiology, appreciate recs - Discontinued Carvedilol 6.25 mg PO BID - Bumex 2 mg IV daily - Lipid panel: Triglycerides:90 cholesterol: 96 LDL: 46 HDL: 32 - Fluid restriction 1500 mL per day - Daily weights - Strict I&Os #Community-acquired pneumonia Shortness of breath with productive cough, desat to 80s at home. Sick contact 2 weeks ago. Minimal bilateral crackles appreciated on lung auscultation. Procal 1.49. CXR showed extensive b/l PNA. Given Ceftriaxone 1g IV and Vancomycin 1g IV in ED. Myocarditis less likely due to moderate increase in cardiac enzymes, possible pericarditis due to symptoms improving with leaning forward (however discrepancy between patient and partner) small pericardial effusion without tamponade on ECHO and potential electrical alternans seen on EKG. Plan: - Vancomycin IV daily (dosing per pharmacy) for MRSA coverage - (DC'd 09/01) - Zosyn 4.5 g IV q12h (renally dosed) - (DC'd 09/01) - Ceftriaxone 1g in 50mL IV QD 100 mls/hr (09/01 - - Azithromycin 500 mg IV QD 250ml/hr (09/01 - - On BiPAP - Pending sputum cx:____ - Cocci: negative - RSV:____ - MRSA nasal screen:____ #NSTEMI-I vs NSTEMI-II Denies chest pain/pressure. Trops downtrending 0.108 --> 0.126--> 0.083. D dimers was 2009. Wells score: 1.5 (only positive finding is HR>100). In ED given nitroglycerin 2 in topical; metoprolol 2.5 mg IV, 50 mg PO, 5 mg IV; morphine 2 mg IV. Most likely type 2 from demand ischemia, no signs of ischemia from ekg, symptoms resolved with rest and oxygen. Low suspicion for PE therefore not pursuing imaging at this time. #Acute kidney injury (CONOR) most likely 2/2 #Hypovolemia (pre-renal azotemia) Differentials include prerenal azotemia from hypotension, cadiorenal, long standing kidney injury. Denies hx CKD, no hx dialysis. No CVA tenderness. BUN 72, Cr 7.4, eGFR 8, BUN/Cr ratio 10, CrCl 4. Renal US: mild to moderate left hydronephrosis, significant prostatomegaly, no prostate nodules. Long standing kidney injury may be the best differential due to long undoctored history and HAGMA resolving with lactic acidosis downtrending while BUN stays above 70 and elevate Cr: 7. Plan: - Consulted nephrology, appreciate recs - CTM renal function with daily BMP - Pending b/l renal US to assess for hydronephrosis - May need dialysis if patient cannot make enough urine with diuretics - Avoid NSAIDs, ACEi/ARB #Leukocytosis -resolving #Lactic acidosis - now resolved Tachycardic, tachypneic, leukocytosis, lactic acid elevated, troponin elevated, CONOR WBC 21, neutrophilic predominance. Lactic acid 3.6 --> 1.9. Given Ceftriaxone 1g IV and Vancomycin 1g IV in ED. No fluids given i/s/o acute CHF exacerbation Plan: - Abx management as below - Pending blood:___ - urine cx: No growth - sputum cx:____ #UTI Dysuria, nocturia, and decreased urge to urinate especially at night. No hx recurrent UTIs UA 1+ blood, + LE, WBC 84. Given Ceftriaxone 1g IV and Vancomycin 1g IV in ED Plan: - Zosyn 4.5 g IV q12h (renally dosed) for gram negative coverage - DC'd - Pending urine cx: No growth - Valdez catheter given decreased urge to urinate, c/f retention #Primary anion gap metabolic acidosis- Improving #Compensatory respiratory alkalosis pH 7.35/CO2 23/O2 123/HCO3 13. Anion gap 18. Expected PaCO2: 25-29 (actual CO2 23). RR 20-40s. Beta hydroxybutyrate WNL. AOx3. Denies N/V, constipation, diarrhea, seizures, muscle cramps, pruritus. Likely to be due to lactic acidosis due to LA downtrending to 1.9 from 3.6, and AG dropping from 18-->16-->14; while BUN stayed elevated in the 70s. Plan: - Management of CHF and CNOOR as above #Normocytic normochromic anemia - resolving Hgb 7.3, HCT 23, on admission. Transfused 1U pRBC in ED therefore unable to do anemia workup since ferritin levels will be falsely elevated. Plan: - Post transfusion H+H: 8.9 - CTM with daily CBC #Transaminitis AST: 103 (112) ALT: 108 (104). Most likely secondary to hypovolemia i/s/o of acute CHF exacerbation. Plan: -CTM LFTs #QTc prolongation QTc 499 Plan: - Avoid QTc prolonging medications #Thrombocytosis Most likely reactive Plan: - CTM with daily CBC #Underweight BMI 18 Decreased appetite, early satiety Plan: - Cardiac/Renal diet #Hyponatremia Na 130 Plan: - CTM daily BMP #Hematuria Most likely secondary to traumatic cath. Patients urine was clear and after painful catheterization color appeared blood-orange red. Plan: -CTM urine output -Monitor for clots in urine bag Checklist Dispo: Admit to tele for cardiac monitoring Diet: Cardiac/Renal with fluid restriction Bowel Reg: doc/senna PRN VTE ppx: heparin subQ GI ppx: n/a Pain mgmt: Tylenol PRN Code status: Limited - no intubated, ok to do CPR Plan discussed with PGY2 Dr. Rodney and Attending Dr. Megha Folres MD PGY1
[2025-09-02] MEDS: POTASSIUM CHL 10 mEq IVPB 10 MEQ/100 ML BAG 100 MEQ IV ×2 (10:31→11:33)
[2025-09-02 10:52] LABS: Cocci Serology, IgG Negative (Negative)
[2025-09-02] MEDS: Magnesium Sulfate 2 GM Ivpb 2 GM/50 ML BAG IV (11:26)
[2025-09-02] MEDS: ACETAMINOPHEN 325 MG TABLET 650 MG PO (11:32)
[2025-09-02] MEDS: SEVELAMER CARBONATE 800 MG TABLET PO ×2 (11:32→17:51)
[2025-09-02 23:38] LABS: Iron 22 mcg/dL (65-175); Percent Iron Saturation 12 % (20-55); Total Iron Binding Capacity 172 mcg/dL (250-425); Unsaturated Iron Binding 150 (225-295)
[2025-09-03] VITALS (11 sets, daily range): BP systolic 101–157; BP diastolic 72–105; PULSE 10–124; RESP 17–96; TEMP 35.9–36.7; O2SAT 95–99; BMI 19.1; BMI 18.0
--- NOTE | 2025-09-03 00:05 | ESPR_ITS ---
RE: ANDRES HINTON : 1960 DATE OF SERVICE: 09/02/2025 HISTORY OF PRESENT ILLNESS: Briefly, this patient is a 64-year-old gentleman with no significant past medical history who presented to the emergency room on 09/01/2025 with increasing shortness of breath, orthopnea and was found hypoxic and an acute kidney injury. The patient already had 2-D echocardiogram done, which revealed a severe global hypokinesis and global left ventricular systolic function severely decreased and an EF of 30%. He was started on diuretics since yesterday and he did better. Since last night, he had a urine output of about 4 liters. He said that he is now feeling much, much better and has less orthopnea. His kidney ultrasound also revealed bilateral cortical thinning. CURRENT MEDICATIONS: 1. Acetaminophen. 2. Azithromycin. 3. Bumetanide 2 mg IV daily. 4. Rocephin 1 g IV daily. 5. Hydralazine 10 mg IV p.r.n. 6. Lispro sliding scale. PHYSICAL EXAMINATION: Vital Signs: Blood pressure of 150/90, heart rate of 81. HEENT: Anicteric sclerae. Normocephalic. Neck: Supple mild JVD. Chest and Lungs: Decreased breath sounds bilaterally. Heart: No rub. No murmur. Abdomen: Soft and nontender. Extremities: No edema. LABORATORY DATA: Hemoglobin 8.6, WBC 11,700, platelet count 546,000. Sodium 138, potassium 4, chloride 103, CO2 17.3, BUN 77, creatinine 6.8, glucose 87, calcium 10.2, phosphorus 6.8, AST 52, ALT 94. ASSESSMENT: 1. Acute and possible chronic kidney disease most likely secondary to cardiorenal syndrome. 2. Congestive heart failure with EF of 30% with global hypokinesis. 3. Anemia, most likely secondary to chronic kidney disease. 4. Hypoxia, now improved. PLAN: I agree with continuation of Bumex 2 mg IV daily. I will also start him on sevelamer 800 mg p.o. t.i.d. with meals to address his hyperphosphatemia. I am hoping that kidney function continues to improve. Continue to monitor urine output, kidney function and CBC on a daily basis. I will also start him on Retacrit 10,000 units subcutaneously three times a week and also obtain iron panel. DT: 22:37:29 TT: 23:46:00 Ref: [id number] - TID: [id number] [facility]
[2025-09-03] MEDS: HEPARIN SOD INJ 5000 UNIT/ML VIAL SC ×3 (05:28→21:08)
[2025-09-03 06:18] LABS: Basophils # (Auto) 0.1 Thou/mm3 (0.0-0.2); Basophils % (Auto) 1 % (0-2.5); Eosinophils # (Auto) 0.9 Thou/mm3 (0.0-0.5); Eosinophils % (Auto) 7 % (0-10); Hematocrit 27.4 % (41.0-53.0); Hemoglobin 8.9 g/dL (13.5-16.0); Immature Granulocytes Auto 0.27 Thou/mm3 (0.00-0.00); Lymphocytes # (Auto) 1.5 Thou/mm3 (1.0-4.8); Lymphocytes % (Auto) 12 % (10-50); Mean Corpuscular HGB Conc 32.5 g/dl (31.0-37.0); Mean Corpuscular Hemoglobin 28.3 pg (25.0-35.0); Mean Corpuscular Volume 87 fL (80-100); Monocytes # (Auto) 1.3 Thou/mm3 (0.0-0.8); Monocytes % (Auto) 11 % (0-12); Neutrophils # (Auto) 8.2 Thou/mm3 (1.8-7.7); Neutrophils % (Auto) 67 % (37-80); Nucleated Red Blood Cell # 0.00 Thou/mm3 (0.00-0.00); Nucleated Red Blood Cell % 0 /100 WBC (0); Platelet Count 581 Thou/mm3 (140-440); RDW Standard Deviation 46.5 fL (35.1-43.9); Red Blood Count 3.14 Miln/mm3 (4.50-5.90); White Blood Count 12.2 Thou/mm3 (3.8-10.6)
[2025-09-03 06:49] LABS: Alanine Aminotransferase 106 U/L (10-49); Albumin, Serum 3.5 gm/dL (3.4-4.8); Albumin/Globulin Ratio 1.2 (1.2-2.2); Alkaline Phosphatase 70 U/L (46-116); Anion Gap 16 (7-16); Aspartate Amino Transferase 57 U/L (0-34); BUN/Creatinine Ratio 12 Ratio (12-20); Bilirubin,Total 0.2 mg/dL (0.3-1.2); Blood Urea Nitrogen 77 mg/dL (9-23); Calcium 9.2 mg/dL (8.3-10.6); Calcium (Corrected) 9.6 mg/dL (8.5-10.1); Carbon Dioxide 19.2 mMol/L (20.0-31.0); Chloride 103 mMol/L (98-107); Creatinine (Component) 6.4 mg/dL (0.6-1.3); Estimated Creatinine Clearance 10.4 mL/min (>60); Globulin 3.0 gm/dL (2.3-3.5); Glucose 96 mg/dL (74-106); Magnesium 2.5 mg/dL (1.6-2.6); Osmolality,Calculated 298 (275-295); Phosphorous 5.6 mg/dL (2.4-5.1); Potassium 4.0 mMol/L (3.4-5.1); Sodium 138 mMol/L (136-145); Total Protein 6.5 gm/dL (5.7-8.2); eGFR 9 See Note
--- NOTE | 2025-09-03 07:00 | XR_ITS ---
EXAMINATION: AP chest single view TECHNIQUE: AP portable upright chest single view Date and time: September 03, 2025, 0636 hours, comparison August 31, 2025 INDICATIONS: Chest pain 3 days, extensive bilateral pneumonia on chest film August 31, 2025. FINDINGS: Improvement in bilateral pneumonia, residual at the lung bases No significant cardiac enlargement Mild to moderate vascular congestion Prominent osteopenia IMPRESSION: Improvement in bilateral pneumonia
--- NOTE | 2025-09-03 07:48 | ESPR_ITS ---
<Statement entered by Clau Awad MD - 09/05/25 19:04> Patient continues to make good progress good urine output renal function slightly improved nonoliguric failure renal failure evaluated patient with resident physician Dr. Jc RENE continue to monitor the patient closely started on low-dose beta-sujata carvedilol 3.125 mg twice daily patient will require further evaluation for ischemic heart disease as an outpatient. Documentation for date of: 09/03/25 Subjective Subjective Interval history: No acute overnight events. Seen and examined at bedside and patient resting comfortably in bed saturating well on room air. He is -3.6 L urine output in last 24 hours and approximately -8.3 L since being admitted. BP stable at 132/93 but heart rate uptrending into 120s to 130s otherwise, afebrile and saturating on room air as previously noted. CBC shows stable leukocytosis and hemoglobin. CHEM panel shows improving renal function with creatinine decreasing from 6.8 to 6.4, phosphorus improving from 6.8-5.6, repeat BMP shows improvement from 2700 to 760, and iron panel shows low iron at 22. Repeat CXR shows significant improvement in infiltrates bilaterally, suspect more pulmonary edema than infection. Will cut back on Bumex from 2 mg to 1 mg IV daily and start low-dose Coreg 3.125 mg twice daily. Exam Vital Signs Temp Pulse Resp BP Pulse Ox O2 Del Method O2 Flow Rate 97.4 F 102 H 20 157/104 H 96 Room Air 2 09/03/25 07:40 09/03/25 07:40 09/03/25 07:40 09/03/25 07:40 09/03/25 07:40 09/03/25 07:40 09/02/25 07:14 FiO2 40 09/01/25 08:00 Narrative Exam General: AOx3, no acute distress, able to speak full sentences HEENT: NC/AT, mucous membranes moist, bilateral sclera anicteric Cardiovascular: tachycardic but normal rhythm, S1/S2 present, no murmurs appreciated Pulmonary: breathing comfortably on room air, lungs clear to auscultation bilaterally Abdominal: soft, non-tender, non-distended, no rebound/guarding, normal bowel sounds present Musculoskeletal: normal ROM, no lower extremity edema Skin: warm and dry, intact, no rashes Neuro: CN II-XII intact, no focal deficits Objective Labs 09/03/25 05:38 09/03/25 05:38 Labs: Laboratory Results - last 24 hr 08/31/25 09/02/25 09/02/25 23:07 05:00 22:50 WBC RBC Hgb Hct MCV MCH MCHC RDW Std Deviation Plt Count Neut % (Auto) Lymph % (Auto) [place] % (Auto) Eos % (Auto) Baso % (Auto) Neut # (Auto) Lymph # (Auto) [place] # (Auto) Eos # (Auto) Baso # (Auto) Immature Gran # (Auto) Absolute Nucleated RBC Immature Gran % Nucleated RBC % Sodium Potassium Chloride Carbon Dioxide Anion Gap BUN Creatinine Estim Creat Clear Calc eGFR BUN/Creatinine Ratio Glucose Calculated Osmolality Calcium Corrected Calcium Phosphorus Magnesium Iron 22 L TIBC 172 L Iron Saturation 12 L Unsat Iron Binding 150 L Total Bilirubin AST ALT Alkaline Phosphatase Total Protein Albumin Globulin Albumin/Globulin Ratio Coccidioides IgG Ab Negative HIV 1&2 Antibody Rapid Non-Reactive 09/03/25 05:38 WBC 12.2 H RBC 3.14 L Hgb 8.9 L Hct 27.4 L MCV 87 MCH 28.3 MCHC 32.5 RDW Std Deviation 46.5 H Plt Count 581 H D Neut % (Auto) 67 Lymph % (Auto) 12 [place] % (Auto) 11 Eos % (Auto) 7 Baso % (Auto) 1 Neut # (Auto) 8.2 H Lymph # (Auto) 1.5 [place] # (Auto) 1.3 H Eos # (Auto) 0.9 H Baso # (Auto) 0.1 Immature Gran # (Auto) 0.27 H Absolute Nucleated RBC 0.00 Immature Gran % 2 H Nucleated RBC % 0 Sodium 138 Potassium 4.0 Chloride 103 Carbon Dioxide 19.2 L Anion Gap 16 BUN 77 H Creatinine 6.4 H* Estim Creat Clear Calc 10.4 L eGFR 9 L* BUN/Creatinine Ratio 12 Glucose 96 Calculated Osmolality 298 H Calcium 9.2 Corrected Calcium 9.6 Phosphorus 5.6 H Magnesium 2.5 Iron TIBC Iron Saturation Unsat Iron Binding Total Bilirubin 0.2 L AST 57 H ALT 106 H Alkaline Phosphatase 70 Total Protein 6.5 Albumin 3.5 Globulin 3.0 Albumin/Globulin Ratio 1.2 Coccidioides IgG Ab HIV 1&2 Antibody Rapid ABG Interpretation ABG results: 08/31/25 09/01/2509/01/25 23:24 07:55 21:32 ABG pH 7.35 7.39 ABG pCO2 23 L 22 L ABG pO2 123 H 147 H D ABG HCO3 13 L 13 L ABG O2 Saturation 99 H 100 H ABG Base Excess -11 L -10 L VBG pH 7.46 VBG pCO2 22 L VBG pO2 100 H VBG Base Excess -7 L Quality Measures Quality Measures none Assessment & Plan Assessment Current Active Medications: Generic Name Dose Route Start Last Admin Trade Name Teo PRN Reason Stop Dose Admin Acetaminophen 650 mg 09/01/25 07:31 09/02/25 11:32 Acetaminophen 325 Mg Tablet PO 10/01/25 01:59 650 mg Q6H PRN Administration Fever >100 or pain 1-3 Bumetanide 2 mg 09/01/25 09:00 09/02/25 09:24 Bumetanide Inj 0.25 Mg/Ml Vial 4 Ml IVP 10/01/25 08:59 2 mg DAILY BRANNON Administration Dextrose 25 ml 09/01/25 07:33 Dextrose 50%-Water Inj 50 Ml Syringe IV 10/01/25 07:32 Q15MIN PRN BG 50-70 responsive npo pt Dextrose 50 ml 09/01/25 07:33 Dextrose 50%-Water Inj 50 Ml Syringe IV 10/01/25 07:32 Q15MIN PRN BG <50 OR BG <70 & pt unresponsive Epoetin Alex 10,000 unit 09/06/25 09:00 Epoetin Alex-Epbx Inj 10,000 Unit/Ml Vial (Esrd) SC 10/06/25 08:59 2 X WEEKLY BRANNON Glucagon 1 mg 09/01/25 07:33 Glucagon Inj 1 Mg Vial IM Q15MIN PRN BG <70, and no IV access Heparin Sodium (Porcine) 5,000 unit 09/01/25 06:00 09/03/25 05:28 Heparin Sod Inj 5000 Unit/Ml Vial SC 09/15/25 05:59 5,000 unit Q8HR BRANNON Administration Hydralazine HCl 10 mg 09/01/25 18:17 Hydralazine Inj 20 Mg/Ml Vial IVP 10/01/25 18:16 Q6HR PRN SBP>180 DBP>110 Ceftriaxone Sodium/Dextrose 1 gm in 50 mls @ 100 mls/hr 09/01/25 09:41 09/02/25 09:24 Rocephin/D5w 1gm Iv Premix IV 09/08/25 09:40 100 mls/hr QDAY BRANNON Administration Azithromycin 500 mg/ Sodium 250 mls @ 250 mls/hr 09/01/25 09:41 09/02/25 09:23 Chloride IV 09/08/25 09:40 250 mls/hr QDAY BRANNON Administration Insulin Human Lispro 0 unit 09/01/25 11:30 09/02/25 20:59 Insulin Lispro (Admelog) 1 Unit/0.01 Ml Unit SC 10/01/25 11:29 Not Given ACHS BRANNON Protocol Pharmacy Consult 1 each 09/01/25 07:30 Pharmacy Renal Dose Adjustment 1 Ea XX 10/01/25 07:29 PRN PRN CONSULT Sennosides 1 tab 09/01/25 03:17 Senna/Docusate Sod 1 Tab Tablet PO 10/01/25 03:16 QDAY PRN CONSTIPATION Protocol Sevelamer Carbonate 800 mg 09/02/25 12:00 09/02/25 17:51 Sevelamer Carbonate 800 Mg Tablet PO 10/02/25 11:59 800 mg TIDWM BRANNON Administration Sodium Bicarbonate 650 mg 09/01/25 09:00 09/02/25 21:00 Sodium Bicarbonate 650 Mg Tablet PO 10/01/25 08:59 650 mg BID BRANNON Administration Plan Moshe Hartman is a 64-year-old male with no reported past medical history who is admitted for acute hypoxic respiratory failure and cardiology consulted for possible new onset congestive heart failure. #Acute hypoxic respiratory failure, improving #New onset HFrEF (30% on 08/2025) #Decompensated congestive heart failure, improving #NSTEMI type II/demand ischemia, improving #? Myocarditis, viral #Tricuspid regurgitation, moderate-severe #Mitral regurgitation, moderate-severe Presents with acute onset, progressive shortness of breath over the course of a few days with associated fever, chills, edema and noted to have sick contact. No chest discomfort, orthopnea, or PND. Apparently exposed to bat and rodent droppings in attic and since has had episodes of recurrent illnesses. Given acuity of symptoms, suspect presentation to be due to silent cardiac pathology from prior exposure (possibly myocarditis) exacerbated by current respiratory infection given elevated WBC, ESR, CRP, and Pro-Chidi (though may be elevated from myocarditis). Lower suspicion for ischemic event given hypertension may be only risk factor as A1c 5.3%, lipid panel unremarkable, and TSH wnl. Thus, clinically suspected myocarditis on basis of new/acute onset of dyspnea/SOB, elevated troponins, T wave inversions in V3/4/5, and echo findings of EF of 30%, severe LV global hypokinesis, moderate to severe MR, moderate to severe TR, moderate pulmonary hypertension, small pericardial effusion. ? Bumex decreased from 2 to 1 mg IV daily ? Continue strict I/O, 1.5 L fluid restriction, and daily weights ? BiPAP as needed ? Once stable, can start introducing GDMT as tolerated ? Start carvedilol 3.125 mg twice daily ? Once stable, can consider outpatient cardiac MR given that gold standard for diagnosis is endomyocardial biopsy #Sinus tachycardia EKG and telemetry show sinus tachycardia with some nonspecific T wave abnormalities. Suspect to be due to underlying infection and CHF exacerbation. ? Treat underlying cause(s) #CAP #Acute vs chronic kidney injury, improving #Lactic acidosis, resolved #AGMA, improving #UTI #Normocytic anemia #Transaminitis, improving ? Continue management per primary team ----- Plan discussed with attending physician Dr. Ritesh Rene MD PGY-2 Internal Medicine
[2025-09-03 07:58] LABS: Hepatitis A Antibody IgM Non Reactive (Non React); Hepatitis B Core Antibody IgM Non Reactive (Non React); Hepatitis B Surface Ab Reactive (Immune) (Immune); Hepatitis B Surface Antigen Non Reactive (Non React); Hepatitis C Antibody Non Reactive (Non React)
[2025-09-03] MEDS: SEVELAMER CARBONATE 800 MG TABLET PO ×3 (09:17→17:16)
[2025-09-03] MEDS: BUMETANIDE INJ 0.25 MG/ML VIAL 4 ML 2 MG IVP (09:18)
[2025-09-03] MEDS: SODIUM BICARBONATE 650 MG TABLET PO ×2 (09:18→21:08)
[2025-09-03] MEDS: cefTRIAXone/D5w 1gm IV premix 1 GM/50 ML BAG IV (09:50)
[2025-09-03] MEDS: AZITHROMYCIN INJ 500 MG in SODIUM CHLORIDE 0.9% 250 ML 250 ML 250 MG IV (09:51)
[2025-09-03 10:01] LABS: B-Type Natriuretic Peptide 759 pg/mL (0-100)
--- NOTE | 2025-09-03 10:40 | PC.SS ---
Update; Kidney funtion being monitored. Possible dialysis. Patient will discharge home when medically cleared.
--- NOTE | 2025-09-03 12:04 | ESPR_ITS ---
<Statement entered by Amrit Cleveland MD - 09/17/25 17:15> I reviewed above note and agree with findings and plans. I have also personally examined the patient with medicine team and went over assessment and plan with medical team including psychology intern and resident physician. Documentation for date of: 09/03/25 No overnight events. Patient is currently saturating well off BiPAP and off nasal cannula. Patient denied orthopnea or paroxysmal nocturnal nocturnal orthopnea. Overall minimal peripheral edema. Repeat chest x-ray noted improvement bilaterally. Renal ultrasound found mild to moderate left hydronephrosis and significant prostatomegaly. Patient presented with acute hypoxic respiratory failure likely secondary to CHF exacerbation. Improved CHF exacerbation with downtrending BNP and overall net negative hospitalization stay. Repeat chest x-ray noted bilateral improvement. Patient transition to oral Bumex 1 mg p.o. daily. Start carvedilol 3.125 mg p.o. twice daily and continue hydralazine as needed as needed. Concern for community-acquired pneumonia continue ceftriaxone which was de-escalated from Zosyn on 09/01/2025, last day 3 of antibiotics. Concern for acute renal injury, patient still producing urine. Concern for intrinsic from possible cardiorenal injury given low BUN and creatinine ratio upon admission. Concern for hydronephrosis given mild to moderate kidneys and enlarged prostate patient may benefit from Flomax given ultrasound findings. May be contributing to urinary tract infection, urine cultures no growth. Rx for conservative treatment. Concern for bacteremia as blood culture noted to have 1/2 growing GPC, likely contaminate given mixed bacteria including GNR. Patient to follow-up outpatient to continue monitoring kidney function. Total output on 09/03/2025 -3530. Net total output during this admission -net 8875 BMP 2693---> 7059 (09/03/2025) - The patient's plan was discussed with attending Dr. Mag Hathaway MD PGY2 Internal Medicine Subjective Subjective Interval history: No overnight events. Patient was examined at bedside; he appears A&Ox4 and in NAD. Labs today significant for WBC 11.7 -> 12.2, Hgb 8.6 -> 8.9, plt# 581, bicarb 17.3 -> 19.2, BUN 77, creatinine 6.8 -> 6.4, phosphate 5.6, AST 52 -> 57, and ALT 94 -> 106. 09/03 CXR showed improvement in patient's bilateral pneumonia. 08/31 BCx grew GPC resembling Staphylococcus from 11/26 anaerobic bottle (possibly contaminant). Patient is still making urine on IV Bumex and, per Nephrology, does not currently require any hemodialysis. However, due to his significant HFrEF, it is likely that he will progress into ESRD via cardiorenal syndrome and will require hemodialysis sometime in the future. Hepatitis panel has already resulted and is negative. Dr. Chisholm is willing to follow him in the outpatient setting for this eventuality. Plan for discharge tomorrow. Plan Updates: -Transition patient from IV to PO Bumex 1 mg qD to see if he still makes urine -Bladder training to check if patient needs to be discharged with Cook catheter -Restarted PO Coreg 3.125 mg BID -Patient will follow-up with Dr. Chisholm in the outpatient setting Exam Vital Signs Temp Pulse Resp BP Pulse Ox O2 Del Method O2 Flow Rate 97.4 F 103 H 20 153/100 H 96 Room Air 2 09/03/25 07:40 09/03/25 09:18 09/03/25 07:40 09/03/25 09:18 09/03/25 07:40 09/03/25 07:40 09/02/25 07:14 FiO2 40 09/01/25 08:00 Narrative Exam GENERAL APPEARANCE: AOx3. NAD, activity normal for age, well developed/ well nourished, no cyanosis, pallor, or diaphoresis. HEENT: Normocephalic atraumatic, no facial trauma, neck is supple. Lids/conjunctiva normal. Mucous membranes moist, nares normal, lips/teeth normal uvula midline without oral pharyngeal erythema, exudate or swelling TMs normal bilaterally. No lymphangitis/lymphedema. +JVD CARDIAC: Regular rhythm Tachycardic rate, S1+S2 heard. No murmurs, rubs, or gallops noted RESPIRATORY: Minor bilateral crackles/rales appreciated, overall clear to auscultation. ABDOMINAL: NBS. Soft, ND/NT. No evidence of fluid wave. No pulsatile masses on exam, rebound tenderness, Huang sign or pain over Mcburney's point. MUSCLES/EXTREMITIES: No abnormal range of motion, no swelling. No pedal edema DERM: Warm, pink and dry. No rashes, dermatoses, petechiae or lesions. NEUROLOGICAL: Speech is clear and appropriate. Normal level of consciousness. Gait and coordination are normal. 5/5 strength in all extremities. PSYCH: Normal mood and affect. Judgement/competence is appropriate : No CVA tenderness Objective Labs 09/03/25 05:38 09/03/25 05:38 Labs: Laboratory Results - last 24 hr 09/02/25 09/03/25 22:50 05:38 WBC 12.2 H RBC 3.14 L Hgb 8.9 L Hct 27.4 L MCV 87 MCH 28.3 MCHC 32.5 RDW Std Deviation 46.5 H Plt Count 581 H D Neut % (Auto) 67 Lymph % (Auto) 12 Pierce % (Auto) 11 Eos % (Auto) 7 Baso % (Auto) 1 Neut # (Auto) 8.2 H Lymph # (Auto) 1.5 Pierce # (Auto) 1.3 H Eos # (Auto) 0.9 H Baso # (Auto) 0.1 Immature Gran # (Auto) 0.27 H Absolute Nucleated RBC 0.00 Immature Gran % 2 H Nucleated RBC % 0 Sodium 138 Potassium 4.0 Chloride 103 Carbon Dioxide 19.2 L Anion Gap 16 BUN 77 H Creatinine 6.4 H* Estim Creat Clear Calc 10.4 L eGFR 9 L* BUN/Creatinine Ratio 12 Glucose 96 Calculated Osmolality 298 H Calcium 9.2 Corrected Calcium 9.6 Phosphorus 5.6 H Magnesium 2.5 Iron 22 L TIBC 172 L Iron Saturation 12 L Unsat Iron Binding 150 L Total Bilirubin 0.2 L AST 57 H ALT 106 H Alkaline Phosphatase 70 B-Natriuretic Peptide 759 H* Total Protein 6.5 Albumin 3.5 Globulin 3.0 Albumin/Globulin Ratio 1.2 Hepatitis A IgM Ab Non Reactive Hep Bs Antigen Non Reactive Hep Bs Antibody Reactive (Immune) Hep B Core IgM Ab Non Reactive Hepatitis C Antibody Non Reactive ABG Interpretation ABG results: 08/31/25 09/01/25 09/01/25 23:24 07:55 21:32 ABG pH 7.35 7.39 ABG pCO2 23 L 22 L ABG pO2 123 H 147 H D ABG HCO3 13 L 13 L ABG O2 Saturation 99 H 100 H ABG Base Excess -11 L -10 L VBG pH 7.46 VBG pCO2 22 L VBG pO2 100 H VBG Base Excess -7 L Quality Measures Quality Measures none Assessment & Plan Assessment Current Active Medications: Generic Name Dose Route Start Last Admin Trade Name Freq PRN Reason Stop Dose Admin Acetaminophen 650 mg 09/01/25 07:31 09/02/25 11:32 Acetaminophen 325 Mg Tablet PO 10/01/25 01:59 650 mg Q6H PRN Administration Fever >100 or pain 1-3 Bumetanide 1 mg 09/04/25 09:00 Bumetanide Inj 0.25 Mg/Ml Vial 4 Ml IVP 10/04/25 08:59 DAILY BRANNON Carvedilol 3.125 mg 09/03/25 17:30 Carvedilol 3.125 Mg Tablet PO 10/03/25 17:29 BIDWM BRANNON Dextrose 25 ml 09/01/25 07:33 Dextrose 50%-Water Inj 50 Ml Syringe IV 10/01/25 07:32 Q15MIN PRN BG 50-70 responsive npo pt Dextrose 50 ml 09/01/25 07:33 Dextrose 50%-Water Inj 50 Ml Syringe IV 10/01/25 07:32 Q15MIN PRN BG <50 OR BG <70 & pt unresponsive Epoetin Alex 10,000 unit 09/06/25 09:00 Epoetin Alex-Epbx Inj 10,000 Unit/Ml Vial (Esrd) SC 10/06/25 08:59 2 X WEEKLY BRANNON Glucagon 1 mg 09/01/25 07:33 Glucagon Inj 1 Mg Vial IM Q15MIN PRN BG <70, and no IV access Heparin Sodium (Porcine) 5,000 unit 09/01/25 06:00 09/03/25 05:28 Heparin Sod Inj 5000 Unit/Ml Vial SC 09/15/25 05:59 5,000 unit Q8HR BRANNON Administration Hydralazine HCl 10 mg 09/01/25 18:17 Hydralazine Inj 20 Mg/Ml Vial IVP 10/01/25 18:16 Q6HR PRN SBP>180 DBP>110 Ceftriaxone Sodium/Dextrose 1 gm in 50 mls @ 100 mls/hr 09/01/25 09:41 09/03/25 09:50 Rocephin/D5w 1gm Iv Premix IV 09/05/25 09:40 100 mls/hr QDAY BRANNON Administration Insulin Human Lispro 0 unit 09/01/25 11:30 09/03/25 08:00 Insulin Lispro (Admelog) 1 Unit/0.01 Ml Unit SC 10/01/25 11:29 Not Given ACHS BRANNON Protocol Pharmacy Consult 1 each 09/01/25 07:30 Pharmacy Renal Dose Adjustment 1 Ea XX 10/01/25 07:29 PRN PRN CONSULT Sennosides 1 tab 09/01/25 03:17 Senna/Docusate Sod 1 Tab Tablet PO 10/01/25 03:16 QDAY PRN CONSTIPATION Protocol Sevelamer Carbonate 800 mg 09/02/25 12:00 09/03/25 09:17 Sevelamer Carbonate 800 Mg Tablet PO 10/02/25 11:59 800 mg TIDWM BRANNON Administration Sodium Bicarbonate 650 mg 09/01/25 09:00 09/03/25 09:18 Sodium Bicarbonate 650 Mg Tablet PO 10/01/25 08:59 650 mg BID BRANNON Administration Plan Mr. Hartman is a 64 y/o male with no reported PMHx who presented with shortness of breath, orthopnea, palpitations, unproductive cough, dysuria x2 days. Admitted for acute CHF exacerbation, b/l PNA, UTI. Patient continues to diurese with good urine output, however kidney panel remains elevated. #Acute kidney injury (CONOR) most likely 2/2 #Hypovolemia (pre-renal azotemia) Differentials include prerenal azotemia from hypotension, cadiorenal, long standing kidney injury. Denies hx CKD, no hx dialysis. No CVA tenderness. BUN 72, Cr 7.4, eGFR 8, BUN/Cr ratio 10, CrCl 4. Renal US: mild to moderate left hydronephrosis, significant prostatomegaly, no prostate nodules. Long standing kidney injury may be the best differential due to long undoctored history and HAGMA resolving with lactic acidosis downtrending while BUN stays above 70 and elevate Cr: 7. 09/01 bilateral renal US showed bilaterally shrunken kidneys Currently, patient is still making urine on IV Bumex and does not require HD; however, due to his significant HFrEF, it is likely that he will progress into ESRD via cardiorenal syndrome and will require hemodialysis sometime in the future. Hepatitis panel has already resulted and is negative. Dr. Chisholm is willing to follow him in the outpatient setting for this eventuality. Rx: -Transition patient from IV to PO Bumex 1 mg qD to see if he still makes urine -Bladder training to check if patient needs to be discharged with Cook catheter -Management of CHF as mentioned above -CTM renal function with daily BMP -Avoid NSAIDs, ACEi/ARB -Plan for patient to follow with Nephrology (Dr. Chisholm) in the outpatient setting for possible future need for HD #Acute CHF exacerbation, improving #CHF HFrEF 30% (09/01/2025) #Miltral Reguitation & Tricuspid regurgitation #Moderate Pulmonary HYpertension #Small pericardial effusion #Acute hypoxic respiratory failure - resolving Differentials include CHF exacerbation & pneumonia. 3 days of SOB without productive cough. Desatted to 80% at home. Presented to ED SOB and tachypneic RR:20-40s in respiratory distress with O2:91% improved with BiPAP. RRR on physical exam and very slight crackles bilateral crackles on lung auscultation. EKG showed sinus tachycardia with a short ME interval, a prolonged QTC interval:[address]ations. Chest xray showed bilateral lung opacities and pleural effusions. BNP: 2693, Troponin 0.108 --> 0.126--> 0.083. Lipid panel: Triglycerides:90 cholesterol: 96 LDL: 46 HDL: 32 NYHA class III (Marked limitation of physical activity; comfortable at rest). ASCVD: 10 year CV risk: 7.5%. Patient hypoxia improving therefore cancelled VQ scan. ECHO: severe left ventricle global hypokinesis with severe systolic dysfunction, LVEF: 30%, normal RV size and function. Mild dilated LA. Aortic valve sclerosis without stenosis. Moderate to severe 3+ mitral regurgitation. Moderate to severe tricuspid valve regurgitation. Moderate pulmonary hypertension. Left pleural effusion present. There is a small pericardial effusion without tamponade. Plan: -Restarted PO Coreg 3.125 mg BID -Per nephrology recommendations, transitioning from IV to PO Bumex 1 mg qD starting tomorrow -Fluid restriction 1500 mL per day -Daily weights -Strict I&Os -BiPAP prn (currently not needed) -Cardiology onboard, appreciate recs #Community-acquired pneumonia #Leukocytosis #GPC bacteremia, less likely Patient presented with possibly superimposed community-acquired pneumonia, given elevated leukocytosis but viral infection cannot be ruled out. Shortness of breath with productive cough, desat to 80s at home. Sick contact 2 weeks ago. Minimal bilateral crackles appreciated on lung auscultation. Procal 1.49. CXR showed extensive b/l PNA. Given Ceftriaxone 1g IV and Vancomycin 1g IV in Flu and COVID-negative. Concern for bacteremia, but less likely given blood cultures 1 out of 2. This is likely contamination. 09/01 sputum Cx grew 1+ mixed oral debbie, Gram Stain showed 2+ WBC, 1+ GPC, occasional GNRs, and 10-25 epi cells/lpf 10/ BCx grew GPC resembling Staphylococcus from 1/2 anaerobic bottle (possibly contaminant). Cocci, MRSA, (-) Antibiotic administration history... IV vancomycin qD [09/01-09/01] IV Zosyn 4.5 g q12HR [09/01-09/01] Plan: -Ceftriaxone 1g in 50mL IV QD 100 mls/hr (09/01 - -Azithromycin 500 mg IV QD 250ml/hr (09/01 - -BiPAP prn (currently not requiring) #NSTEMI-I vs NSTEMI-II Denies chest pain/pressure. Trops downtrending 0.108 --> 0.126--> 0.083. D dimers was 2010. Wells score: 1.5 (only positive finding is HR>100). In ED given nitroglycerin 2 in topical; metoprolol 2.5 mg IV, 50 mg PO, 5 mg IV; morphine 2 mg IV. Most likely type 2 from demand ischemia, no signs of ischemia from ekg, symptoms resolved with rest and oxygen. Low suspicion for PE therefore not pursuing imaging at this time. #Leukocytosis -resolving #Lactic acidosis - now resolved Tachycardic, tachypneic, leukocytosis, lactic acid elevated, troponin elevated, CONOR WBC 21, neutrophilic predominance. Lactic acid 3.6 --> 1.9. Given Ceftriaxone 1g IV and Vancomycin 1g IV in ED. No fluids given i/s/o acute CHF exacerbation 08/31 urine Cx did not grow anything 10/ BCx grew GPC resembling Staphylococcus from 1/2 anaerobic bottle (possibly contaminant). 09/01 sputum Cx grew 1+ mixed oral debbie, Gram Stain showed 2+ WBC, 1+ GPC, occasional GNRs, and 10-25 epi cells/lpf Plan: -Antibiotic management as above #UTI #Prostatomegaly Dysuria, nocturia, and decreased urge to urinate especially at night. No hx recurrent UTIs UA 1+ blood, + LE, WBC 84. Given Ceftriaxone 1g IV and Vancomycin 1g IV in ED 08/31 urine Cx did not grow anything Plan: -Antibiotic management as above -Bladder training to check if patient needs to be discharged with Cook catheter #Primary anion gap metabolic acidosis- Improving #Compensatory respiratory alkalosis pH 7.35/CO2 23/O2 123/HCO3 13. Anion gap 18. Expected PaCO2: 25-29 (actual CO2 23). RR 20-40s. Beta hydroxybutyrate WNL. AOx3. Denies N/V, constipation, diarrhea, seizures, muscle cramps, pruritus. Likely to be due to lactic acidosis due to LA downtrending to 1.9 from 3.6, and AG dropping from 18-->16-->14; while BUN stayed elevated in the 70s. Plan: -Management of CHF and CONOR as above #Normocytic normochromic anemia - resolving Hgb 7.3, HCT 23, on admission. Transfused 1U pRBC in ED therefore unable to do anemia workup since ferritin levels will be falsely elevated. Today, Hgb 8.9 Plan: -CTM with daily CBC #Transaminitis AST: 103 (112) ALT: 108 (104). Most likely secondary to hypovolemia i/s/o of acute CHF exacerbation. Plan: -CTM LFTs #QTc prolongation QTc 499 Plan: -Avoid QTc prolonging medications #Thrombocytosis Most likely reactive Plan: -CTM with daily CBC #Underweight BMI 18 Decreased appetite, early satiety Plan: -Cardiac/Renal diet #Hematuria Most likely secondary to traumatic cath. Patients urine was clear and after painful catheterization color appeared blood-orange red. Plan: -CTM urine output -Monitor for clots in urine bag Checklist Dispo: Anticipate discharge tomorrow after bladder training and trial of PO Bumex in urine production Diet: Cardiac/Renal with fluid restriction Bowel Reg: doc/senna PRN VTE ppx: heparin subQ GI ppx: n/a Pain mgmt: Tylenol PRN Code status: Limited - no intubated, ok to do CPR Plan discussed with PGY2 Dr. Hathaway and Attending Dr. Megha Lawrence, DO Internal Medicine, PGY-1
[2025-09-03] MEDS: SENNA/DOCUSATE SOD 1 TAB TABLET PO (13:26)
[2025-09-03] MEDS: IRON SUCROSE CPLX INJ 20 MG/ML VIAL 5 ML 100 MG IVP (13:37)
[2025-09-03] MEDS: ACETAMINOPHEN 325 MG TABLET 650 MG PO (13:56)
--- NOTE | 2025-09-03 23:08 | ESPR_ITS ---
RE: ANDRES HINTON : 1960 DATE OF SERVICE: 09/03/2025 SUBJECTIVE: Briefly, this patient is a 64-year-old gentleman with no significant past medical history who presented to the emergency room on 09/01/2025 with increasing shortness of breath, orthopnea and was found hypoxic with elevated lactic acidosis and an acute kidney injury. The patient had a 2D echocardiogram done, which revealed a severe global hypokinesis and global left ventricular systolic function severely decreased with an EF of 30%. He was started on IV Bumex 2 mg daily, and he did very well. He has lots of urine output, about 5 L since yesterday. He is now off oxygen, but he is still short of breath especially when he is talking. He also has less orthopnea. Kidney ultrasound also revealed bilateral cortical thinning consistent with CKD. CURRENT MEDICATIONS: 1. Bumetanide 1 mg p.o. daily. 2. Acetaminophen. 3. Carvedilol 3.125 mg p.o. b.i.d. 3. Epogen 10,000 units two times weekly. 4. Hydralazine 10 mg IV q.6. 5. Magnesium. 6. Sevelamer 800 mg p.o. t.i.d. with meals. PHYSICAL EXAMINATION: General: He is awake, alert, oriented. Vital Signs: Blood pressure of 101/72, heart rate of 108, respiratory rate of 17. O2 sat of 98% on room air. HEENT: Anicteric sclerae, normocephalic. Neck: Supple, no JVD. Chest and Lungs: Symmetric expansion, clear breath sounds. Cardiac: Without murmur. Abdomen: Soft, nontender. Extremities: No edema. LABORATORY DATA: Hemoglobin 8.9, WBC 12,200, platelet count [id number]. Sodium 138, potassium 4, chloride 103, CO2 19.2. BUN 77, creatinine 6.4. Glucose 96. Calcium 9.6, phosphorus 5.6, iron saturation 12%. BNP 759. ASSESSMENT: 1. Acute on possible chronic kidney disease most likely secondary to cardiorenal syndrome. 2. Heart failure with reduced ejection fraction of 30% with global hypokinesis. 3. Anemia secondary to chronic kidney disease with iron deficiency. 4. Hypoxia now improved without any oxygen. PLAN: I agree with changing Bumex to oral and see how much he can urinate with oral diuretic. I will increase it to 2 mg b.i.d. given that he was taking 2 mg IV daily. The patient should also undergo bladder training and see if he will be able to urinate without Cook catheter. Continue to monitor kidney function and electrolytes. I have started him on IV Venofer 100 mg daily for 5 days. DT: 22:45:31 TT: 23:06:00 Ref: [id number] - TID: [id number]
[2025-09-04] VITALS (12 sets, daily range): BP systolic 125–145; BP diastolic 73–95; PULSE 87–110; RESP 15–99; TEMP 36.1–36.4; O2SAT 95–100
[2025-09-04] MEDS: HEPARIN SOD INJ 5000 UNIT/ML VIAL SC ×3 (05:31→21:26)
[2025-09-04 07:30] LABS: Basophils # (Auto) 0.2 Thou/mm3 (0.0-0.2); Basophils % (Auto) 1 % (0-2.5); Eosinophils # (Auto) 2.1 Thou/mm3 (0.0-0.5); Eosinophils % (Auto) 16 % (0-10); Hematocrit 26.9 % (41.0-53.0); Immature Granulocytes Auto 0.47 Thou/mm3 (0.00-0.00); Lymphocytes # (Auto) 2.0 Thou/mm3 (1.0-4.8); Lymphocytes % (Auto) 16 % (10-50); Mean Corpuscular HGB Conc 32.0 g/dl (31.0-37.0); Mean Corpuscular Hemoglobin 27.9 pg (25.0-35.0); Mean Corpuscular Volume 87 fL (80-100); Monocytes # (Auto) 1.4 Thou/mm3 (0.0-0.8); Monocytes % (Auto) 11 % (0-12); Neutrophils # (Auto) 6.7 Thou/mm3 (1.8-7.7); Neutrophils % (Auto) 52 % (37-80); Nucleated Red Blood Cell # 0.00 Thou/mm3 (0.00-0.00); Nucleated Red Blood Cell % 0 /100 WBC (0); Platelet Count 620 Thou/mm3 (140-440); RDW Standard Deviation 46.6 fL (35.1-43.9); Red Blood Count 3.08 Miln/mm3 (4.50-5.90); White Blood Count 12.8 Thou/mm3 (3.8-10.6)
[2025-09-04 07:43] LABS: Hemoglobin 8.6 g/dL (13.5-16.0)
[2025-09-04 07:51] LABS: Alanine Aminotransferase 127 U/L (10-49); Albumin, Serum 3.6 gm/dL (3.4-4.8); Albumin/Globulin Ratio 1.2 (1.2-2.2); Alkaline Phosphatase 67 U/L (46-116); Anion Gap 16 (7-16); Aspartate Amino Transferase 66 U/L (0-34); BUN/Creatinine Ratio 14 Ratio (12-20); Bilirubin,Total 0.2 mg/dL (0.3-1.2); Blood Urea Nitrogen 89 mg/dL (9-23); Calcium 9.1 mg/dL (8.3-10.6); Calcium (Corrected) 9.4 mg/dL (8.5-10.1); Carbon Dioxide 20.2 mMol/L (20.0-31.0); Chloride 104 mMol/L (98-107); Creatinine (Component) 6.4 mg/dL (0.6-1.3); Estimated Creatinine Clearance 9.7 mL/min (>60); Globulin 3.0 gm/dL (2.3-3.5); Glucose 85 mg/dL (74-106); Magnesium 2.5 mg/dL (1.6-2.6); Osmolality,Calculated 305 (275-295); Phosphorous 6.0 mg/dL (2.4-5.1); Potassium 3.9 mMol/L (3.4-5.1); Sodium 140 mMol/L (136-145); Total Protein 6.6 gm/dL (5.7-8.2); eGFR 9 See Note
[2025-09-04] MEDS: IRON SUCROSE CPLX INJ 20 MG/ML VIAL 5 ML 100 MG IVP (08:58)
[2025-09-04] MEDS: SEVELAMER CARBONATE 800 MG TABLET PO ×3 (08:59→17:55)
[2025-09-04] MEDS: SODIUM BICARBONATE 650 MG TABLET PO ×2 (08:59→20:34)
[2025-09-04] MEDS: cefTRIAXone/D5w 1gm IV premix 1 GM/50 ML BAG IV (09:00)
[2025-09-04] MEDS: BUMETANIDE 0.5 MG TABLET 2 MG PO ×2 (09:04→20:33)
--- NOTE | 2025-09-04 12:37 | ESPR_ITS ---
<Statement entered by Amrit Cleveland MD - 09/17/25 17:16> I reviewed above note and agree with findings and plans. I have also personally examined the patient with medicine team and went over assessment and plan with medical team including human resource internship and resident physician. Documentation for date of: 09/04/25 No overnight events. Patient examined at bedside and sitting up in bed eating breakfast. CHF HFrEF exacerbation severe systolic dysfunction 30% (09/01/2025), improved with continued diuresis of Bumex 2 mg PO BID with improved resolution of acute hypoxic respirtory failure. Patient was transitioned from IV to PO diuresis. Continue to work towards GDMT, including Carvedilol and Bumex. Patient continous to have urine output. In 1190/2900/Net -1710. 62.142 kg-->58.332 kg (09/04/2025). CONOR obstructive given enlarged prostated. Continue bladder training, plan to remove valdez this evening. Finasteride and Flomax. Continues to have appropriate urine output. No change in Cr or BUN. Concern that patinet may be moving toward dialysis, likely monitor for the next several months. Required to follow up with Dr. Pino. Continue Sevelamer and sodium bicarbonate. HIV negative. Hep pending. Follow with PPD tomorrow. Improved leukocytosis. Blood culture (08/31/2025) GPC 1/2 cultures, likely contaminate. Improved CAP as noted on repeat Chest x-ray. No bowel movements. Senna. Plan to discharge patient in the next 24 hour. - The patient's plan was discussed with attending Dr. Megha Hathaway MD PGY2 Internal Medicine Subjective Subjective Interval history: Dr. Henry spoken to today, unsure if patient has a neurogenic bladder. In outpatient will repeat pre- and post-void bladder US, if residual urine then sent to urologist for urodynamics. Patient examined bedside, labs reviewed, telemetry reviewed overnight showed sinus tachy. Renal labs remain unchanged. Patient is in good spirits, attempting voiding trial to remove valdez catheter. Reports no trouble ambulating, no shortness of breath or chest pain when ambulating. Wt: 58.332kg IO: -2Lnet (+900ml, -2.9L urine) Exam Vital Signs Temp Pulse Resp BP Pulse Ox O2 Del Method O2 Flow Rate 97.5 F 91 17 133/84 H 99 Room Air 2 09/04/25 08:00 09/04/25 09:04 09/04/25 08:28 09/04/25 09:04 09/04/25 08:00 09/04/25 08:00 09/02/25 07:14 FiO2 40 09/01/25 08:00 Narrative Exam GENERAL APPEARANCE: AOx3. NAD, activity normal for age, well developed/ well nourished, no cyanosis, pallor, or diaphoresis. HEENT: Normocephalic atraumatic, no facial trauma, neck is supple. Lids/conjunctiva normal. Mucous membranes moist, nares normal, lips/teeth normal uvula midline without oral pharyngeal erythema, exudate or swelling TMs normal bilaterally. No lymphangitis/lymphedema. +JVD CARDIAC: Regular rhythm Tachycardic rate, S1+S2 heard. No murmurs, rubs, or gallops noted RESPIRATORY: Bilateral breath sounds vesicular and clear to auscultation no rhonchi, rales, or wheezes appreciated. ABDOMINAL: NBS. Soft, ND/NT. No evidence of fluid wave. No pulsatile masses on exam, rebound tenderness, Huang sign or pain over Mcburney's point. MUSCLES/EXTREMITIES: No abnormal range of motion, no swelling. No pedal edema DERM: Warm, pink and dry. No rashes, dermatoses, petechiae or lesions. NEUROLOGICAL: Speech is clear and appropriate. Normal level of consciousness. Gait and coordination are normal. 5/5 strength in all extremities. PSYCH: Normal mood and affect. Judgement/competence is appropriate : No CVA tenderness Objective Labs 09/04/25 06:58 09/04/25 06:58 Labs: Laboratory Results - last 24 hr 09/04/25 06:58 WBC 12.8 H RBC 3.08 L Hgb 8.6 L Hct 26.9 L MCV 87 MCH 27.9 MCHC 32.0 RDW Std Deviation 46.6 H Plt Count 620 H D Neut % (Auto) 52 Lymph % (Auto) 16 [place] % (Auto) 11 Eos % (Auto) 16 H Baso % (Auto) 1 Neut # (Auto) 6.7 Lymph # (Auto) 2.0 [place] # (Auto) 1.4 H Eos # (Auto) 2.1 H Baso # (Auto) 0.2 Immature Gran # (Auto) 0.47 H Absolute Nucleated RBC 0.00 Immature Gran % 4 H Nucleated RBC % 0 Sodium 140 Potassium 3.9 Chloride 104 Carbon Dioxide 20.2 Anion Gap 16 BUN 89 H Creatinine 6.4 H* Estim Creat Clear Calc 9.7 L eGFR 9 L* BUN/Creatinine Ratio 14 Glucose 85 Calculated Osmolality 305 H Calcium 9.1 Corrected Calcium 9.4 Phosphorus 6.0 H Magnesium 2.5 Total Bilirubin 0.2 L AST 66 H ALT 127 H Alkaline Phosphatase 67 Total Protein 6.6 Albumin 3.6 Globulin 3.0 Albumin/Globulin Ratio 1.2 ABG Interpretation ABG results: 08/31/25 09/01/25 09/01/25 23:24 07:55 21:32 ABG pH 7.35 7.39 ABG pCO2 23 L 22 L ABG pO2 123 H 147 H D ABG HCO3 13 L 13 L ABG O2 Saturation 99 H 100 H ABG Base Excess -11 L -10 L VBG pH 7.46 VBG pCO2 22 L VBG pO2 100 H VBG Base Excess -7 L Quality Measures Quality Measures none Assessment & Plan Assessment Current Active Medications: Generic Name Dose Route Start Last Admin Trade Name Freq PRN Reason Stop Dose Admin Acetaminophen 650 mg 09/01/25 07:31 09/03/25 13:56 Acetaminophen 325 Mg Tablet PO 10/01/25 01:59 650 mg Q6H PRN Administration Fever >100 or pain 1-3 Bumetanide 2 mg 09/04/25 09:00 09/04/25 09:04 Bumetanide 0.5 Mg Tablet PO 10/04/25 08:59 2 mg BID BRANNON Administration Carvedilol 3.125 mg 09/03/25 17:30 09/04/25 09:04 Carvedilol 3.125 Mg Tablet PO 10/03/25 17:29 3.125 mg BIDWM BRANNON Administration Dextrose 25 ml 09/01/25 07:33 Dextrose 50%-Water Inj 50 Ml Syringe IV 10/01/25 07:32 Q15MIN PRN BG 50-70 responsive npo pt Dextrose 50 ml 09/01/25 07:33 Dextrose 50%-Water Inj 50 Ml Syringe IV 10/01/25 07:32 Q15MIN PRN BG <50 OR BG <70 & pt unresponsive Epoetin Alex 10,000 unit 09/06/25 09:00 Epoetin Alex-Epbx Inj 10,000 Unit/Ml Vial (Esrd) SC 10/06/25 08:59 2 X WEEKLY BRANNON Glucagon 1 mg 09/01/25 07:33 Glucagon Inj 1 Mg Vial IM Q15MIN PRN BG <70, and no IV access Heparin Sodium (Porcine) 5,000 unit 09/01/25 06:00 09/04/25 05:31 Heparin Sod Inj 5000 Unit/Ml Vial SC 09/15/25 05:59 5,000 unit Q8HR BRANNON Administration Hydralazine HCl 10 mg 09/01/25 18:17 Hydralazine Inj 20 Mg/Ml Vial IVP 10/01/25 18:16 Q6HR PRN SBP>180 DBP>110 Ceftriaxone Sodium/Dextrose 1 gm in 50 mls @ 100 mls/hr 09/01/25 09:41 09/04/25 09:00 Rocephin/D5w 1gm Iv Premix IV 09/05/25 09:40 100 mls/hr QDAY BRANNON Administration Insulin Human Lispro 0 unit 09/01/25 11:30 09/04/25 11:29 Insulin Lispro (Admelog) 1 Unit/0.01 Ml Unit SC 10/01/25 11:29 Not Given ACHS BRANNON Protocol Iron Sucrose 100 mg 09/03/25 12:15 09/04/25 08:58 Iron Sucrose Cplx Inj 20 Mg/Ml Vial 5 Ml IVP 09/07/25 09:01 100 mg DAILY BRANNON Administration Pharmacy Consult 1 each 09/01/25 07:30 Pharmacy Renal Dose Adjustment 1 Ea XX 10/01/25 07:29 PRN PRN CONSULT Sennosides 1 tab 09/01/25 03:17 09/03/25 13:26 Senna/Docusate Sod 1 Tab Tablet PO 10/01/25 03:16 1 tab QDAY PRN Administration CONSTIPATION Protocol Sevelamer Carbonate 800 mg 09/02/25 12:00 09/04/25 11:28 Sevelamer Carbonate 800 Mg Tablet PO 10/02/25 11:59 800 mg TIDWM BRANNON Administration Sodium Bicarbonate 650 mg 09/01/25 09:00 09/04/25 08:59 Sodium Bicarbonate 650 Mg Tablet PO 10/01/25 08:59 650 mg BID BRANNON Administration Plan Mr. Hartman is a 64 y/o male with no reported PMHx who presented with shortness of breath, orthopnea, palpitations, unproductive cough, dysuria x2 days. Admitted for acute CHF exacerbation, b/l PNA, UTI. Patient continues to diurese with good urine output, however kidney panel remains elevated. Potentially may need dialysis outpatient. Dr. Henry spoken to today 09/04, unsure if patient has a neurogenic bladder. In outpatient will repeat pre- and post-void bladder US, if residual urine then sent to urologist for urodynamics. #Acute kidney injury (CONOR) most likely 2/2 #Obstructive vs pre-renal Differentials include prerenal azotemia from hypotension, cadiorenal, long standing kidney injury. Denies hx CKD, no hx dialysis. No CVA tenderness. BUN 72, Cr 7.4, eGFR 8, BUN/Cr ratio 10, CrCl 4. Renal US: mild to moderate left hydronephrosis, significant prostatomegaly, no prostate nodules. Long standing kidney injury may be the best differential due to long undoctored history and HAGMA resolving with lactic acidosis downtrending while BUN stays above 70 and elevate Cr: 7. 09/01 bilateral renal US showed bilaterally shrunken kidneys Currently, patient is still making urine on IV Bumex and does not require HD; however, due to his significant HFrEF, it is likely that he will progress into ESRD via cardiorenal syndrome and will require hemodialysis sometime in the future. Hepatitis panel has already resulted and is negative. Dr. Chisholm is willing to follow him in the outpatient setting for this eventuality. Rx: -Transition patient from IV to PO Bumex 2 mg BID -Joey FLOOD'd following bladder training -09/04 -Management of CHF as mentioned above -CTM renal function with daily BMP -Avoid NSAIDs, ACEi/ARB -Plan for patient to follow with Nephrology (Dr. Chisholm) in the outpatient setting for possible future need for HD #Acute CHF exacerbation, improving #CHF HFrEF 30% (09/01/2025) #Miltral Reguitation & Tricuspid regurgitation #Moderate Pulmonary HYpertension #Small pericardial effusion #Acute hypoxic respiratory failure - resolving Differentials include CHF exacerbation & pneumonia. 3 days of SOB without productive cough. Desatted to 80% at home. Presented to ED SOB and tachypneic RR:20-40s in respiratory distress with O2:91% improved with BiPAP. RRR on physical exam and very slight crackles bilateral crackles on lung auscultation. EKG showed sinus tachycardia with a short [place] interval, a prolonged QTC interval:[address]ations. Chest xray showed bilateral lung opacities and pleural effusions. BNP: 2693, Troponin 0.108 --> 0.126--> 0.083. Lipid panel: Triglycerides:90 cholesterol: 96 LDL: 46 HDL: 32 NYHA class III (Marked limitation of physical activity; comfortable at rest). ASCVD: 10 year CV risk: 7.5%. Patient hypoxia improving therefore cancelled VQ scan. ECHO: severe left ventricle global hypokinesis with severe systolic dysfunction, LVEF: 30%, normal RV size and function. Mild dilated LA. Aortic valve sclerosis without stenosis. Moderate to severe 3+ mitral regurgitation. Moderate to severe tricuspid valve regurgitation. Moderate pulmonary hypertension. Left pleural effusion present. There is a small pericardial effusion without tamponade. Plan: -Restarted PO Coreg 3.125 mg BID -Per nephrology recommendations, transitioning from IV to PO Bumex 1 mg BID starting tomorrow -Fluid restriction 1500 mL per day -Daily weights -Strict I&Os -BiPAP prn (currently not needed) -Cardiology onboard, appreciate recs #Community-acquired pneumonia #Leukocytosis #GPC bacteremia, less likely Patient presented with possibly superimposed community-acquired pneumonia, given elevated leukocytosis but viral infection cannot be ruled out. Shortness of breath with productive cough, desat to 80s at home. Sick contact 2 weeks ago. Minimal bilateral crackles appreciated on lung auscultation. Procal 1.49. CXR showed extensive b/l PNA. Given Ceftriaxone 1g IV and Vancomycin 1g IV in Flu and COVID-negative. Concern for bacteremia, but less likely given blood cultures 1 out of 2. This is likely contamination. 09/01 sputum Cx grew 1+ mixed oral debbie, Gram Stain showed 2+ WBC, 1+ GPC, occasional GNRs, and 10-25 epi cells/lpf 08/31 BCx grew GPC resembling Staphylococcus from 1/ anaerobic bottle (possibly contaminant). Cocci, MRSA, (-) Antibiotic administration history... IV vancomycin qD [09/01-09/01] IV Zosyn 4.5 g q12HR [09/01-09/01] Plan: -Ceftriaxone 1g in 50mL IV QD 100 mls/hr (09/01 - -Azithromycin 500 mg IV QD 250ml/hr (09/01 - 09/03) -BiPAP prn (currently not requiring) #NSTEMI-I vs NSTEMI-II Denies chest pain/pressure. Trops downtrending 0.108 --> 0.126--> 0.083. D dimers was 2010. Wells score: 1.5 (only positive finding is HR>100). In ED given nitroglycerin 2 in topical; metoprolol 2.5 mg IV, 50 mg PO, 5 mg IV; morphine 2 mg IV. Most likely type 2 from demand ischemia, no signs of ischemia from ekg, symptoms resolved with rest and oxygen. Low suspicion for PE therefore not pursuing imaging at this time. #Leukocytosis -resolving #Lactic acidosis - now resolved Tachycardic, tachypneic, leukocytosis, lactic acid elevated, troponin elevated, CONOR WBC 21, neutrophilic predominance. Lactic acid 3.6 --> 1.9. Given Ceftriaxone 1g IV and Vancomycin 1g IV in ED. No fluids given i/s/o acute CHF exacerbation 08/31 urine Cx did not grow anything 08/31 BCx grew GPC resembling Staphylococcus from 1/2 anaerobic bottle (possibly contaminant). 09/01 sputum Cx grew 1+ mixed oral debbie, Gram Stain showed 2+ WBC, 1+ GPC, occasional GNRs, and 10-25 epi cells/lpf Plan: -Antibiotic management as above #UTI #Prostatomegaly Dysuria, nocturia, and decreased urge to urinate especially at night. No hx recurrent UTIs UA 1+ blood, + LE, WBC 84. Given Ceftriaxone 1g IV and Vancomycin 1g IV in ED 08/31 urine Cx did not grow anything. Renal US: 74cc prostatomegaly. History of BPH over 10 yers was taking saw palmetto but stopped many years ago. Passed bladder training in hospital, valdez removed. Patient recommended to follow up with Dr. Chisholm and urology for TURP Plan: - Finasteride 5mg PO QD (09/04 - -Antibiotic management as above #Primary anion gap metabolic acidosis- Improving #Compensatory respiratory alkalosis pH 7.35/CO2 23/O2 123/HCO3 13. Anion gap 18. Expected PaCO2: 25-29 (actual CO2 23). RR 20-40s. Beta hydroxybutyrate WNL. AOx3. Denies N/V, constipation, diarrhea, seizures, muscle cramps, pruritus. Likely to be due to lactic acidosis due to LA downtrending to 1.9 from 3.6, and AG dropping from 18-->16-->14; while BUN stayed elevated in the 70s. Plan: -Management of CHF and CONOR as above #Normocytic normochromic anemia - resolving Hgb 7.3, HCT 23, on admission. Transfused 1U pRBC in ED therefore unable to do anemia workup since ferritin levels will be falsely elevated. Today, Hgb 8.9 Plan: -CTM with daily CBC -EPO from Dr. Chisholm - iron sucorse 100mg from Dr. Chisholm #Transaminitis AST: 103 (112) ALT: 108 (104). Most likely secondary to hypovolemia i/s/o of acute CHF exacerbation. Plan: -CTM LFTs #QTc prolongation QTc 499 Plan: -Avoid QTc prolonging medications #Thrombocytosis Most likely reactive Plan: -CTM with daily CBC #Underweight BMI 18 Decreased appetite, early satiety Plan: -Cardiac/Renal diet #Hematuria - resolving Most likely secondary to traumatic cath. Patients urine was clear and after painful catheterization color appeared blood-orange red. Plan: -CTM urine output -Monitor for clots in urine bag Checklist Dispo: Anticipate discharge tomorrow after bladder training and trial of PO Bumex in urine production Diet: Cardiac/Renal with fluid restriction Bowel Reg: doc/senna PRN VTE ppx: heparin subQ GI ppx: n/a Pain mgmt: Tylenol PRN Code status: Limited - no intubated, ok to do CPR Plan discussed with PGY2 Dr. Hathaway and Attending Dr. Megha Flores MD Internal Medicine, PGY-1
--- NOTE | 2025-09-04 13:03 | ESPR_ITS ---
<Statement entered by Clau Awad MD - 09/05/25 19:05> Patient continues to make good progress good urine output renal function slightly improved nonoliguric failure renal failure evaluated patient with resident physician Dr. Jc RENE continue to monitor the patient closely started on low-dose beta-sujata carvedilo 6.25mg twice daily patient will require further evaluation for ischemic heart disease as an outpatient. Documentation for date of: 09/04/25 Subjective Subjective Interval history: No acute overnight events. Seen and examined at bedside and patient breathing comfortably on room air. Still has not had a bowel movement but is on stool softeners and states that urine is still red but Cook has since been taken out. Denies any shortness of breath or chest discomfort. Vital signs stable, heart rate improved on low-dose Coreg. CBC shows slight increase in leukocytosis, stable hemoglobin, increasing thrombocytosis. CHEM panel shows creatinine at 6.4 that was the same as yesterday, increasing phosphorus on sevelamer. Bumex changed to 2 mg p.o. twice daily. Net -10 L since admission. Exam Vital Signs Temp Pulse Resp BP Pulse Ox O2 Del Method O2 Flow Rate 97.5 F 91 17 133/84 H 99 Room Air 2 09/04/25 08:00 09/04/25 09:04 09/04/25 08:28 09/04/25 09:04 09/04/25 08:00 09/04/25 08:00 09/02/25 07:14 FiO2 40 09/01/25 08:00 Narrative Exam General: AOx3, no acute distress, able to speak full sentences HEENT: NC/AT, mucous membranes moist, bilateral sclera anicteric Cardiovascular: tachycardic but normal rhythm, S1/S2 present, no murmurs appreciated Pulmonary: breathing comfortably on room air, lungs clear to auscultation bilaterally Abdominal: soft, non-tender, non-distended, no rebound/guarding, normal bowel sounds present Musculoskeletal: normal ROM, no lower extremity edema Skin: warm and dry, intact, no rashes Neuro: CN II-XII intact, no focal deficits Objective Labs 09/05/25 10:05 09/05/25 05:10 Labs: Laboratory Results - last 24 hr 09/04/25 06:58 WBC 12.8 H RBC 3.08 L Hgb 8.6 L Hct 26.9 L MCV 87 MCH 27.9 MCHC 32.0 RDW Std Deviation 46.6 H Plt Count 620 H D Neut % (Auto) 52 Lymph % (Auto) 16 [place] % (Auto) 11 Eos % (Auto) 16 H Baso % (Auto) 1 Neut # (Auto) 6.7 Lymph # (Auto) 2.0 [place] # (Auto) 1.4 H Eos # (Auto) 2.1 H Baso # (Auto) 0.2 Immature Gran # (Auto) 0.47 H Absolute Nucleated RBC 0.00 Immature Gran % 4 H Nucleated RBC % 0 Sodium 140 Potassium 3.9 Chloride 104 Carbon Dioxide 20.2 Anion Gap 16 BUN 89 H Creatinine 6.4 H* Estim Creat Clear Calc 9.7 L eGFR 9 L* BUN/Creatinine Ratio 14 Glucose 85 Calculated Osmolality 305 H Calcium 9.1 Corrected Calcium 9.4 Phosphorus 6.0 H Magnesium 2.5 Total Bilirubin 0.2 L AST 66 H ALT 127 H Alkaline Phosphatase 67 Total Protein 6.6 Albumin 3.6 Globulin 3.0 Albumin/Globulin Ratio 1.2 ABG Interpretation ABG results: 08/31/25 09/01/25 09/01/25 23:24 07:55 21:32 ABG pH 7.35 7.39 ABG pCO2 23 L 22 L ABG pO2 123 H 147 H D ABG HCO3 13 L 13 L ABG O2 Saturation 99 H 100 H ABG Base Excess -11 L -10 L VBG pH 7.46 VBG pCO2 22 L VBG pO2 100 H VBG Base Excess -7 L Quality Measures Quality Measures none Assessment & Plan Assessment Current Active Medications: Generic Name Dose Route Start Last Admin Trade Name Freq PRN Reason Stop Dose Admin Acetaminophen 650 mg 09/01/25 07:31 09/03/25 13:56 Acetaminophen 325 Mg Tablet PO 10/01/25 01:59 650 mg Q6H PRN Administration Fever >100 or pain 1-3 Bumetanide 2 mg 09/04/25 09:00 09/04/25 09:04 Bumetanide 0.5 Mg Tablet PO 10/04/25 08:59 2 mg BID BRANNON Administration Carvedilol 3.125 mg 09/03/25 17:30 09/04/25 09:04 Carvedilol 3.125 Mg Tablet PO 10/03/25 17:29 3.125 mg BIDWM BRANNON Administration Dextrose 25 ml 09/01/25 07:33 Dextrose 50%-Water Inj 50 Ml Syringe IV 10/01/25 07:32 Q15MIN PRN BG 50-70 responsive npo pt Dextrose 50 ml 09/01/25 07:33 Dextrose 50%-Water Inj 50 Ml Syringe IV 10/01/25 07:32 Q15MIN PRN BG <50 OR BG <70 & pt unresponsive Epoetin Alex 10,000 unit 09/06/25 09:00 Epoetin Alex-Epbx Inj 10,000 Unit/Ml Vial (Esrd) SC 10/06/25 08:59 2 X WEEKLY BRANNON Glucagon 1 mg 09/01/25 07:33 Glucagon Inj 1 Mg Vial IM Q15MIN PRN BG <70, and no IV access Heparin Sodium (Porcine) 5,000 unit 09/01/25 06:00 09/04/25 05:31 Heparin Sod Inj 5000 Unit/Ml Vial SC 09/15/25 05:59 5,000 unit Q8HR BRANNON Administration Hydralazine HCl 10 mg 09/01/25 18:17 Hydralazine Inj 20 Mg/Ml Vial IVP 10/01/25 18:16 Q6HR PRN SBP>180 DBP>110 Ceftriaxone Sodium/Dextrose 1 gm in 50 mls @ 100 mls/hr 09/01/25 09:41 09/04/25 09:00 Rocephin/D5w 1gm Iv Premix IV 09/05/25 09:40 100 mls/hr QDAY BRANNON Administration Insulin Human Lispro 0 unit 09/01/25 11:30 09/04/25 11:29 Insulin Lispro (Admelog) 1 Unit/0.01 Ml Unit SC 10/01/25 11:29 Not Given ACHS [facility] Protocol Iron Sucrose 100 mg 09/03/25 12:15 09/04/25 08:58 Iron Sucrose Cplx Inj 20 Mg/Ml Vial 5 Ml IVP 09/07/25 09:01 100 mg DAILY BRANNON Administration Pharmacy Consult 1 each 09/01/25 07:30 Pharmacy Renal Dose Adjustment 1 Ea XX 10/01/25 07:29 PRN PRN CONSULT Sennosides 1 tab 09/01/25 03:17 09/03/25 13:26 Senna/Docusate Sod 1 Tab Tablet PO 10/01/25 03:16 1 tab QDAY PRN Administration CONSTIPATION Protocol Sevelamer Carbonate 800 mg 09/02/25 12:00 09/04/25 11:28 Sevelamer Carbonate 800 Mg Tablet PO 10/02/25 11:59 800 mg TIDWM BRANNON Administration Sodium Bicarbonate 650 mg 09/01/25 09:00 09/04/25 08:59 Sodium Bicarbonate 650 Mg Tablet PO 10/01/25 08:59 650 mg BID BRANNON Administration Plan Moshe Hartman is a 64-year-old male with no reported past medical history who is admitted for acute hypoxic respiratory failure and cardiology consulted for possible new onset congestive heart failure. #Acute hypoxic respiratory failure, improving #New onset HFrEF (30% on 08/2025) #Decompensated congestive heart failure, improving #NSTEMI type II/demand ischemia, improving #? Myocarditis, viral #Tricuspid regurgitation, moderate-severe #Mitral regurgitation, moderate-severe Presents with acute onset, progressive shortness of breath over the course of a few days with associated fever, chills, edema and noted to have sick contact. No chest discomfort, orthopnea, or PND. Apparently exposed to bat and rodent droppings in attic and since has had episodes of recurrent illnesses. Given acuity of symptoms, suspect presentation to be due to silent cardiac pathology from prior exposure (possibly myocarditis) exacerbated by current respiratory infection given elevated WBC, ESR, CRP, and Pro-Chidi (though may be elevated from myocarditis). Lower suspicion for ischemic event given hypertension may be only risk factor as A1c 5.3%, lipid panel unremarkable, and TSH wnl. Thus, clinically suspected myocarditis on basis of new/acute onset of dyspnea/SOB, elevated troponins, T wave inversions in V3/4/5, and echo findings of EF of 30%, severe LV global hypokinesis, moderate to severe MR, moderate to severe TR, moderate pulmonary hypertension, small pericardial effusion. ? Carvedilol increased to 6.25 mg twice daily ? Bumex 2 mg p.o. twice daily ? Continue strict I/O, 1.5 L fluid restriction, and daily weights ? Once stable, can consider outpatient cardiac MR given that gold standard for diagnosis is endomyocardial biopsy #Sinus tachycardia EKG and telemetry show sinus tachycardia with some nonspecific T wave abnormalities. Suspect to be due to underlying infection and CHF exacerbation. ? Treat underlying cause(s) #CAP #Acute vs chronic kidney injury, improving #Lactic acidosis, resolved #AGMA, improving #UTI #Normocytic anemia #Transaminitis, improving ? Continue management per primary team ----- Plan discussed with attending physician Dr. Ritesh Rene MD PGY-2 Internal Medicine
[2025-09-04] MEDS: FINASTERIDE 5 MG TABLET PO (17:56)
[2025-09-04 18:28] LABS: HIV (1&2) Antibody Rapid Non-Reactive
[2025-09-04] MEDS: TAMSULOSIN HCL 0.4 MG CAPSULE PO (20:33)
[2025-09-05] VITALS (11 sets, daily range): BP systolic 104–147; BP diastolic 68–89; PULSE 50–112; RESP 15–99; TEMP 36.1–36.2; O2SAT 97–100
[2025-09-05] MEDS: HEPARIN SOD INJ 5000 UNIT/ML VIAL SC ×3 (05:09→20:46)
[2025-09-05 06:17] LABS: B-Type Natriuretic Peptide 334 pg/mL (0-100)
[2025-09-05 06:39] LABS: Basophils # (Auto) 0.2 Thou/mm3 (0.0-0.2); Basophils % (Auto) 1 % (0-2.5); Eosinophils # (Auto) 2.6 Thou/mm3 (0.0-0.5); Eosinophils % (Auto) 14 % (0-10); Hematocrit 27.5 % (41.0-53.0); Immature Granulocytes Auto 0.56 Thou/mm3 (0.00-0.00); Lymphocytes # (Auto) 2.2 Thou/mm3 (1.0-4.8); Lymphocytes % (Auto) 12 % (10-50); Mean Corpuscular HGB Conc 32.0 g/dl (31.0-37.0); Mean Corpuscular Hemoglobin 28.3 pg (25.0-35.0); Mean Corpuscular Volume 88 fL (80-100); Monocytes # (Auto) 1.6 Thou/mm3 (0.0-0.8); Monocytes % (Auto) 9 % (0-12); Neutrophils # (Auto) 11.3 Thou/mm3 (1.8-7.7); Neutrophils % (Auto) 62 % (37-80); Nucleated Red Blood Cell # 0.00 Thou/mm3 (0.00-0.00); Nucleated Red Blood Cell % 0 /100 WBC (0); Platelet Count 525 Thou/mm3 (140-440); RDW Standard Deviation 47.2 fL (35.1-43.9); Red Blood Count 3.11 Miln/mm3 (4.50-5.90); White Blood Count 18.3 Thou/mm3 (3.8-10.6)
[2025-09-05 06:48] LABS: Alanine Aminotransferase 132 U/L (10-49); Albumin, Serum 3.7 gm/dL (3.4-4.8); Albumin/Globulin Ratio 1.2 (1.2-2.2); Alkaline Phosphatase 68 U/L (46-116); Anion Gap 18 (7-16); Aspartate Amino Transferase 76 U/L (0-34); BUN/Creatinine Ratio 15 Ratio (12-20); Bilirubin,Total 0.2 mg/dL (0.3-1.2); Blood Urea Nitrogen 89 mg/dL (9-23); Calcium 9.3 mg/dL (8.3-10.6); Calcium (Corrected) 9.5 mg/dL (8.5-10.1); Carbon Dioxide 19.2 mMol/L (20.0-31.0); Chloride 101 mMol/L (98-107); Creatinine (Component) 5.8 mg/dL (0.6-1.3); Estimated Creatinine Clearance 10.8 mL/min (>60); Globulin 3.2 gm/dL (2.3-3.5); Glucose 96 mg/dL (74-106); Magnesium 2.4 mg/dL (1.6-2.6); Osmolality,Calculated 302 (275-295); Phosphorous 5.3 mg/dL (2.4-5.1); Potassium 3.9 mMol/L (3.4-5.1); Sodium 138 mMol/L (136-145); Total Protein 6.9 gm/dL (5.7-8.2); eGFR 10 See Note
[2025-09-05 06:50] LABS: Hemoglobin 8.8 g/dL (13.5-16.0)
[2025-09-05] MEDS: IRON SUCROSE CPLX INJ 20 MG/ML VIAL 5 ML 100 MG IVP (09:23)
[2025-09-05] MEDS: BUMETANIDE 0.5 MG TABLET 2 MG PO (09:25)
[2025-09-05] MEDS: SENNA/DOCUSATE SOD 1 TAB TABLET PO (09:26)
[2025-09-05] MEDS: FINASTERIDE 5 MG TABLET PO (09:26)
[2025-09-05] MEDS: SEVELAMER CARBONATE 800 MG TABLET PO ×3 (09:27→17:34)
[2025-09-05] MEDS: cefTRIAXone/D5w 1gm IV premix 1 GM/50 ML BAG IV (09:27)
[2025-09-05] MEDS: SODIUM BICARBONATE 650 MG TABLET PO ×2 (09:27→20:46)
[2025-09-05 10:49] LABS: Basophils # (Auto) 0.1 Thou/mm3 (0.0-0.2); Basophils % (Auto) 1 % (0-2.5); Eosinophils # (Auto) 2.2 Thou/mm3 (0.0-0.5); Eosinophils % (Auto) 13 % (0-10); Hematocrit 24.3 % (41.0-53.0); Immature Granulocytes Auto 0.45 Thou/mm3 (0.00-0.00); Lymphocytes # (Auto) 1.6 Thou/mm3 (1.0-4.8); Lymphocytes % (Auto) 10 % (10-50); Mean Corpuscular HGB Conc 31.7 g/dl (31.0-37.0); Mean Corpuscular Hemoglobin 28.3 pg (25.0-35.0); Mean Corpuscular Volume 89 fL (80-100); Monocytes # (Auto) 1.3 Thou/mm3 (0.0-0.8); Monocytes % (Auto) 8 % (0-12); Neutrophils # (Auto) 10.7 Thou/mm3 (1.8-7.7); Neutrophils % (Auto) 65 % (37-80); Nucleated Red Blood Cell # 0.00 Thou/mm3 (0.00-0.00); Nucleated Red Blood Cell % 0 /100 WBC (0); Platelet Count 634 Thou/mm3 (140-440); RDW Standard Deviation 47.8 fL (35.1-43.9); Red Blood Count 2.72 Miln/mm3 (4.50-5.90); White Blood Count 16.4 Thou/mm3 (3.8-10.6)
[2025-09-05 10:50] LABS: Hemoglobin 7.7 g/dL (13.5-16.0)
--- NOTE | 2025-09-05 11:27 | ESPR_ITS ---
<Statement entered by Amrit Cleveland MD - 09/17/25 17:17> I reviewed above note and agree with findings and plans. I have also personally examined the patient with medicine team and went over assessment and plan with medical team including international organizer and resident physician. <Statement entered by Bear Rodney MD - 09/06/25 05:53> I saw and examined patient personally and supervised PGY 1 resident, Dr. Flores with formulating a management plan. I agree with the documentation with the exceptions as listed below. Patient appears dry today. Will give a diuretic holiday. WBC also up trended to 18 with no signs of infection, will keep for 1 more day. Anticipate discharge within next 24 hours. Plan of care discussed with Attending Dr. Megha Rodney MD PGY 2 Disclaimer: This note was dictated by speech recognition. Minor errors in cheese specialist may be present due to voice recognition software. Documentation for date of: 09/05/25 Subjective Subjective Interval history: Diuretic holiday today, consider restarting bumex tomorrow. Passed urine voiding trial, valdez removed yesterday, multiple urinations since then without blood. He reports feeling good, is able to ambulate without assistance. Denies SOB, chest pain, cough, or orthopnea. Will be held here overnight for one more day of observation due to elevated WBC spike on CBC and confirmed on repeat CBC. Exam Vital Signs Temp Pulse Resp BP Pulse Ox O2 Del Method O2 Flow Rate 96.9 F 97 16 111/74 100 Room Air 2 09/05/25 08:00 09/05/25 09:26 09/05/25 08:00 09/05/25 09:26 09/05/25 08:00 09/05/25 00:00 09/02/25 07:14 FiO2 40 09/01/25 08:00 Narrative Exam GENERAL APPEARANCE: AOx3. NAD, activity normal for age, well developed/ well nourished, no cyanosis, pallor, or diaphoresis. HEENT: Normocephalic atraumatic, no facial trauma, neck is supple. Lids/conjunctiva normal. Mucous membranes moist, nares normal, lips/teeth normal uvula midline without oral pharyngeal erythema, exudate or swelling TMs normal bilaterally. No lymphangitis/lymphedema. +JVD CARDIAC: Regular rhythm Tachycardic rate, S1+S2 heard. No murmurs, rubs, or gallops noted RESPIRATORY: Bilateral breath sounds vesicular and clear to auscultation no rhonchi, rales, or wheezes appreciated. ABDOMINAL: NBS. Soft, ND/NT. No evidence of fluid wave. No pulsatile masses on exam, rebound tenderness, Huang sign or pain over Mcburney's point. MUSCLES/EXTREMITIES: No abnormal range of motion, no swelling. No pedal edema DERM: Warm, pink and dry. No rashes, dermatoses, petechiae or lesions. NEUROLOGICAL: Speech is clear and appropriate. Normal level of consciousness. Gait and coordination are normal. 5/5 strength in all extremities. PSYCH: Normal mood and affect. Judgement/competence is appropriate : No CVA tenderness Objective Labs 09/05/25 10:05 09/05/25 05:10 Labs: Laboratory Results - last 24 hr 09/04/25 09/05/25 09/05/25 06:58 05:10 10:05 WBC 18.3 H D 16.4 H RBC 3.11 L 2.72 L Hgb 8.8 L 7.7 L Hct 27.5 L 24.3 L MCV 88 89 MCH 28.3 28.3 MCHC 32.0 31.7 RDW Std Deviation 47.2 H 47.8 H Plt Count 525 H D 634 H D Neut % (Auto) 62 65 Lymph % (Auto) 12 10 [place] % (Auto) 9 8 Eos % (Auto) 14 H 13 H Baso % (Auto) 1 1 Neut # (Auto) 11.3 H 10.7 H Lymph # (Auto) 2.2 1.6 [place] # (Auto) 1.6 H 1.3 H Eos # (Auto) 2.6 H 2.2 H Baso # (Auto) 0.2 0.1 Immature Gran # (Auto) 0.56 H 0.45 H Absolute Nucleated RBC 0.00 0.00 Immature Gran % 3 H 3 H Nucleated RBC % 0 0 Sodium 138 Potassium 3.9 Chloride 101 Carbon Dioxide 19.2 L Anion Gap 18 H BUN 89 H Creatinine 5.8 H* D Estim Creat Clear Calc 10.8 L eGFR 10 L* BUN/Creatinine Ratio 15 Glucose 96 Calculated Osmolality 302 H Calcium 9.3 Corrected Calcium 9.5 Phosphorus 5.3 H Magnesium 2.4 Total Bilirubin 0.2 L AST 76 H ALT 132 H Alkaline Phosphatase 68 B-Natriuretic Peptide 334 H Total Protein 6.9 Albumin 3.7 Globulin 3.2 Albumin/Globulin Ratio 1.2 HIV 1&2 Antibody Rapid Non-Reactive ABG Interpretation ABG results: 08/31/25 09/01/25 09/01/25 23:24 07:55 21:32 ABG pH 7.35 7.39 ABG pCO2 23 L 22 L ABG pO2 123 H 147 H D ABG HCO3 13 L 13 L ABG O2 Saturation 99 H 100 H ABG Base Excess -11 L -10 L VBG pH 7.46 VBG pCO2 22 L VBG pO2 100 H VBG Base Excess -7 L Quality Measures Quality Measures none Assessment & Plan Assessment Current Active Medications: Generic Name Dose Route Start Last Admin Trade Name Freq PRN Reason Stop Dose Admin Acetaminophen 650 mg 09/01/25 07:31 09/03/25 13:56 Acetaminophen 325 Mg Tablet PO 10/01/25 01:59 650 mg Q6H PRN Administration Fever >100 or pain 1-3 Bumetanide 2 mg 09/04/25 09:00 09/05/25 09:25 Bumetanide 0.5 Mg Tablet PO 10/04/25 08:59 2 mg BID BRANNON Administration Carvedilol 6.25 mg 09/05/25 08:00 09/05/25 09:26 Carvedilol 3.125 Mg Tablet PO 10/05/25 07:59 6.25 mg BIDWM BRANNON Administration Dextrose 25 ml 09/01/25 07:33 Dextrose 50%-Water Inj 50 Ml Syringe IV 10/01/25 07:32 Q15MIN PRN BG 50-70 responsive npo pt Dextrose 50 ml 09/01/25 07:33 Dextrose 50%-Water Inj 50 Ml Syringe IV 10/01/25 07:32 Q15MIN PRN BG <50 OR BG <70 & pt unresponsive Epoetin Alex 10,000 unit 09/06/25 09:00 Epoetin Alex-Epbx Inj 10,000 Unit/Ml Vial (Esrd) SC 10/06/25 08:59 2 X WEEKLY BRANNON Finasteride 5 mg 09/04/25 18:00 09/05/25 09:26 Finasteride 5 Mg Tablet PO 10/04/25 17:59 5 mg QDAY BRANNON Administration Glucagon 1 mg 09/01/25 07:33 Glucagon Inj 1 Mg Vial IM Q15MIN PRN BG <70, and no IV access Heparin Sodium (Porcine) 5,000 unit 09/01/25 06:00 09/05/25 05:09 Heparin Sod Inj 5000 Unit/Ml Vial SC 09/15/25 05:59 5,000 unit Q8HR BRANNON Administration Hydralazine HCl 10 mg 09/01/25 18:17 Hydralazine Inj 20 Mg/Ml Vial IVP 10/01/25 18:16 Q6HR PRN SBP>180 DBP>110 Insulin Human Lispro 0 unit 09/01/25 11:30 09/05/25 08:05 Insulin Lispro (Admelog) 1 Unit/0.01 Ml Unit SC 10/01/25 11:29 Not Given ACHS BRANNON Protocol Iron Sucrose 100 mg 09/03/25 12:15 09/05/25 09:23 Iron Sucrose Cplx Inj 20 Mg/Ml Vial 5 Ml IVP 09/07/25 09:01 100 mg DAILY BRANNON Administration Pharmacy Consult 1 each 09/01/25 07:30 Pharmacy Renal Dose Adjustment 1 Ea XX 10/01/25 07:29 PRN PRN CONSULT Sennosides 1 tab 09/05/25 09:00 09/05/25 09:26 Senna/Docusate Sod 1 Tab Tablet PO 10/05/25 08:59 1 tab QDAY BRANNON Administration Protocol Sevelamer Carbonate 800 mg 09/02/25 12:00 09/05/25 09:27 Sevelamer Carbonate 800 Mg Tablet PO 10/02/25 11:59 800 mg TIDWM BRANNON Administration Sodium Bicarbonate 650 mg 09/01/25 09:00 09/05/25 09:27 Sodium Bicarbonate 650 Mg Tablet PO 10/01/25 08:59 650 mg BID BRANNON Administration Tamsulosin HCl 0.4 mg 09/05/25 21:00 Tamsulosin Hcl 0.4 Mg Capsule PO 10/05/25 20:59 HS BRANNON Plan Mr. Hartman is a 64 y/o male with no reported PMHx who presented with shortness of breath, orthopnea, palpitations, unproductive cough, dysuria x2 days. Admitted for acute CHF exacerbation, b/l PNA, UTI. Patient continues to diurese with good urine output, however kidney panel remains elevated. Potentially may need dialysis outpatient. Dr. Henry spoken to today 09/04, unsure if patient has a neurogenic bladder. In outpatient will repeat pre- and post-void bladder US, if residual urine then sent to urologist for urodynamics. Diuretic holiday, restart Bumex tomorrow 09/06. Plan for DC tomorrow 09/06. #Acute kidney injury (CONOR) most likely 2/2 #Obstructive vs pre-renal Differentials include prerenal azotemia from hypotension, cadiorenal, long standing kidney injury. Denies hx CKD, no hx dialysis. No CVA tenderness. BUN 72, Cr 7.4, eGFR 8, BUN/Cr ratio 10, CrCl 4. Renal US: mild to moderate left hydronephrosis, significant prostatomegaly, no prostate nodules. Long standing kidney injury may be the best differential due to long undoctored history and HAGMA resolving with lactic acidosis downtrending while BUN stays above 70 and elevate Cr: 7. 09/01 bilateral renal US showed bilaterally mild to moderae hydronephrosis Currently, patient is still making urine on IV Bumex and does not require HD; however, due to his significant HFrEF, it is likely that he will progress into ESRD via cardiorenal syndrome and will require hemodialysis sometime in the future. Hepatitis panel has already resulted and is negative. Dr. Chisholm is willing to follow him in the outpatient setting for this eventuality. Rx: -Transition patient from IV to PO Bumex 2 mg BID - holding today (09/05) -Valdez DC'd following bladder training -09/04 -Management of CHF as mentioned above -CTM renal function with daily BMP -Avoid NSAIDs, ACEi/ARB -Plan for patient to follow with Nephrology (Dr. Chisholm) in the outpatient setting for possible future need for HD #Leukocytosis Most likely reactive. Could be due to removal of catheter following traumatic catheterization or due to volume depletion status. Repeat CBC showed similar leukocytosis. Finished ceftriaxone today 09/05. Plan: -Diuretic holiday -Recheck CBC in AM #Acute CHF exacerbation, improving #CHF HFrEF 30% (09/01/2025) #Miltral Reguitation & Tricuspid regurgitation #Moderate Pulmonary HYpertension #Small pericardial effusion #Acute hypoxic respiratory failure - resolving Differentials include CHF exacerbation & pneumonia. 3 days of SOB without productive cough. Desatted to 80% at home. Presented to ED SOB and tachypneic RR:20-40s in respiratory distress with O2:91% improved with BiPAP. RRR on physical exam and very slight crackles bilateral crackles on lung auscultation. EKG showed sinus tachycardia with a short OH interval, a prolonged QTC interval:[address]. Chest xray showed bilateral lung opacities and pleural effusions. BNP: 2693, Troponin 0.108 --> 0.126--> 0.083. Lipid panel: Triglycerides:90 cholesterol: 96 LDL: 46 HDL: 32 NYHA class III (Marked limitation of physical activity; comfortable at rest). ASCVD: 10 year CV risk: 7.5%. Patient hypoxia improving therefore cancelled VQ scan. ECHO: severe left ventricle global hypokinesis with severe systolic dysfunction, LVEF: 30%, normal RV size and function. Mild dilated LA. Aortic valve sclerosis without stenosis. Moderate to severe 3+ mitral regurgitation. Moderate to severe tricuspid valve regurgitation. Moderate pulmonary hypertension. Left pleural effusion present. There is a small pericardial effusion without tamponade. Plan: -PO Coreg 6.125 mg BID -Per nephrology recommendations, transitioning from IV to PO Bumex 1 mg BID starting tomorrow -Fluid restriction 1500 mL per day -Daily weights -Strict I&Os -BiPAP prn (currently not needed) -Cardiology onboard, appreciate recs #Community-acquired pneumonia #Leukocytosis #GPC bacteremia, less likely Patient presented with possibly superimposed community-acquired pneumonia, given elevated leukocytosis but viral infection cannot be ruled out. Shortness of breath with productive cough, desat to 80s at home. Sick contact 2 weeks ago. Minimal bilateral crackles appreciated on lung auscultation. Procal 1.49. CXR showed extensive b/l PNA. Given Ceftriaxone 1g IV and Vancomycin 1g IV in Flu and COVID-negative. Concern for bacteremia, but less likely given blood cultures 1 out of 2. This is likely contamination. 09/01 sputum Cx grew 1+ mixed oral debbie, Gram Stain showed 2+ WBC, 1+ GPC, occasional GNRs, and 10-25 epi cells/lpf 08/31 BCx grew GPC resembling Staphylococcus from 1/2 anaerobic bottle (possibly contaminant). Cocci, MRSA, (-) Antibiotic administration history... IV vancomycin qD [09/01-09/01] IV Zosyn 4.5 g q12HR [09/01-09/01] Plan: -Ceftriaxone 1g in 50mL IV QD 100 mls/hr (09/01 - -Azithromycin 500 mg IV QD 250ml/hr (09/01 - 09/03) -BiPAP prn (currently not requiring) #NSTEMI-I vs NSTEMI-II Denies chest pain/pressure. Trops downtrending 0.108 --> 0.126--> 0.083. D dimers was 2010. Wells score: 1.5 (only positive finding is HR>100). In ED given nitroglycerin 2 in topical; metoprolol 2.5 mg IV, 50 mg PO, 5 mg IV; morphine 2 mg IV. Most likely type 2 from demand ischemia, no signs of ischemia from ekg, symptoms resolved with rest and oxygen. Low suspicion for PE therefore not pursuing imaging at this time. #Leukocytosis -resolving #Lactic acidosis - now resolved Tachycardic, tachypneic, leukocytosis, lactic acid elevated, troponin elevated, CONOR WBC 21, neutrophilic predominance. Lactic acid 3.6 --> 1.9. Given Ceftriaxone 1g IV and Vancomycin 1g IV in ED. No fluids given i/s/o acute CHF exacerbation 08/31 urine Cx did not grow anything 08/31 BCx grew GPC resembling Staphylococcus from 1/2 anaerobic bottle (possibly contaminant). 09/01 sputum Cx grew 1+ mixed oral debbie, Gram Stain showed 2+ WBC, 1+ GPC, occasional GNRs, and 10-25 epi cells/lpf Plan: -Antibiotic management as above #UTI #Prostatomegaly Dysuria, nocturia, and decreased urge to urinate especially at night. No hx recurrent UTIs UA 1+ blood, + LE, WBC 84. Given Ceftriaxone 1g IV and Vancomycin 1g IV in ED 08/31 urine Cx did not grow anything. Renal US: 74cc prostatomegaly. History of BPH over 10 yers was taking saw palmetto but stopped many years ago. Passed bladder training in hospital, valdez removed. Patient recommended to follow up with Dr. Chisholm and urology for TURP Plan: - Finasteride 5mg PO QD (09/04 - -Antibiotic management as above #Primary anion gap metabolic acidosis- Improving #Compensatory respiratory alkalosis pH 7.35/CO2 23/O2 123/HCO3 13. Anion gap 18. Expected PaCO2: 25-29 (actual CO2 23). RR 20-40s. Beta hydroxybutyrate WNL. AOx3. Denies N/V, constipation, diarrhea, seizures, muscle cramps, pruritus. Likely to be due to lactic acidosis due to LA downtrending to 1.9 from 3.6, and AG dropping from 18-->16-->14; while BUN stayed elevated in the 70s. Plan: -Management of CHF and CONOR as above #Normocytic normochromic anemia - resolving Hgb 7.3, HCT 23, on admission. Transfused 1U pRBC in ED therefore unable to do anemia workup since ferritin levels will be falsely elevated. Today, Hgb 8.9 Plan: -CTM with daily CBC -EPO from Dr. Chisholm - iron sucorse 100mg from Dr. Chisholm #Transaminitis AST: 103 (112) ALT: 108 (104). Most likely secondary to hypovolemia i/s/o of acute CHF exacerbation. Plan: -CTM LFTs #QTc prolongation QTc 499 Plan: -Avoid QTc prolonging medications #Thrombocytosis Most likely reactive Plan: -CTM with daily CBC #Underweight BMI 18 Decreased appetite, early satiety Plan: -Cardiac/Renal diet #Hematuria - resolving Most likely secondary to traumatic cath. Patients urine was clear and after painful catheterization color appeared blood-orange red. Plan: -CTM urine output -Monitor for clots in urine bag Checklist Dispo: Anticipate discharge tomorrow after bladder training and trial of PO Bumex in urine production Diet: Cardiac/Renal with fluid restriction Bowel Reg: doc/senna PRN VTE ppx: heparin subQ GI ppx: n/a Pain mgmt: Tylenol PRN Code status: Limited - no intubated, ok to do CPR Plan discussed with PGY2 Dr. Rodney and Attending Dr. Megha Flores MD Internal Medicine, PGY-1
--- NOTE | 2025-09-05 19:04 | ESPR_ITS ---
RE: ANDRES HINTON : 1960 DATE OF SERVICE: 09/05/2025 SUBJECTIVE: Patient is doing fairly well now. Not having any chest pain, still has some problem in urination, but continues to improve over the last few days. Renal function slightly improved. Not having any shortness of breath, walked about 150-100 feet without any problem. Clinically not in heart failure. OBJECTIVE: Vital Signs: His blood pressure is 120/30, heart rate is 90, respirations 18, and temperature normal. Neck: Supple. No JVD. Lungs: Decreased breath sounds. No rales or rhonchi. Heart: S1 and S2. Regular. Abdomen: Thin and soft. Extremities: No edema. Genitourinary and Rectal: Not performed. Neurologic: Normal. ASSESSMENT: 1. Acute decompensated systolic heart failure. 2. Dilated cardiomyopathy. 3. Acute renal failure, improving. Slight improvement in creatinine. RECOMMENDATIONS: We will continue the carvedilol at 6.25 mg b.i.d. dose for now and also . The patient has anemia. Epoetin is given and Dr. Chisholm, support merchandiser is following the patient closely. We will continue to monitor the patient. Following discharge, the patient will require assessment for ischemic heart disease with possibly nuclear stress test. DT: 18:51:48 TT: 19:03:00 Ref: [id number] - TID: [id number]
[2025-09-05] MEDS: TAMSULOSIN HCL 0.4 MG CAPSULE PO (20:46)
[2025-09-05 23:33] LABS: Hepatitis A Antibody IgM Non Reactive (Non React); Hepatitis B Core Antibody IgM Non Reactive (Non React); Hepatitis B Surface Antigen Non Reactive (Non React); Hepatitis C Antibody Non Reactive (Non React)
[2025-09-06] VITALS (7 sets, daily range): BP systolic 118–133; BP diastolic 70–88; PULSE 70–102; RESP 14–20; TEMP 36.1–36.4; O2SAT 97–99; BMI 18.2
[2025-09-06] MEDS: HEPARIN SOD INJ 5000 UNIT/ML VIAL SC (05:37)
[2025-09-06 06:59] LABS: Basophils # (Auto) 0.1 Thou/mm3 (0.0-0.2); Basophils % (Auto) 1 % (0-2.5); Eosinophils # (Auto) 1.7 Thou/mm3 (0.0-0.5); Eosinophils % (Auto) 14 % (0-10); Hematocrit 25.3 % (41.0-53.0); Immature Granulocytes Auto 0.36 Thou/mm3 (0.00-0.00); Lymphocytes # (Auto) 1.8 Thou/mm3 (1.0-4.8); Lymphocytes % (Auto) 15 % (10-50); Mean Corpuscular HGB Conc 31.6 g/dl (31.0-37.0); Mean Corpuscular Hemoglobin 28.1 pg (25.0-35.0); Mean Corpuscular Volume 89 fL (80-100); Monocytes # (Auto) 1.2 Thou/mm3 (0.0-0.8); Monocytes % (Auto) 10 % (0-12); Neutrophils # (Auto) 7.4 Thou/mm3 (1.8-7.7); Neutrophils % (Auto) 59 % (37-80); Nucleated Red Blood Cell # 0.00 Thou/mm3 (0.00-0.00); Nucleated Red Blood Cell % 0 /100 WBC (0); Platelet Count 564 Thou/mm3 (140-440); RDW Standard Deviation 47.7 fL (35.1-43.9); Red Blood Count 2.85 Miln/mm3 (4.50-5.90); White Blood Count 12.5 Thou/mm3 (3.8-10.6)
[2025-09-06 07:04] LABS: Hemoglobin 8.0 g/dL (13.5-16.0)
[2025-09-06 07:21] LABS: Alanine Aminotransferase 105 U/L (10-49); Albumin, Serum 3.8 gm/dL (3.4-4.8); Albumin/Globulin Ratio 1.2 (1.2-2.2); Alkaline Phosphatase 65 U/L (46-116); Anion Gap 16 (7-16); Aspartate Amino Transferase 19 U/L (0-34); BUN/Creatinine Ratio 15 Ratio (12-20); Bilirubin,Total 0.3 mg/dL (0.3-1.2); Blood Urea Nitrogen 87 mg/dL (9-23); Calcium 9.6 mg/dL (8.3-10.6); Calcium (Corrected) 9.8 mg/dL (8.5-10.1); Carbon Dioxide 20.4 mMol/L (20.0-31.0); Chloride 100 mMol/L (98-107); Creatinine (Component) 5.9 mg/dL (0.6-1.3); Estimated Creatinine Clearance 10.7 mL/min (>60); Globulin 3.2 gm/dL (2.3-3.5); Glucose 85 mg/dL (74-106); Magnesium 2.1 mg/dL (1.6-2.6); Osmolality,Calculated 297 (275-295); Phosphorous 6.1 mg/dL (2.4-5.1); Potassium 3.7 mMol/L (3.4-5.1); Sodium 136 mMol/L (136-145); Total Protein 7.0 gm/dL (5.7-8.2); eGFR 10 See Note
[2025-09-06] MEDS: BUMETANIDE 0.5 MG TABLET 1 MG PO (09:13)
[2025-09-06] MEDS: SEVELAMER CARBONATE 800 MG TABLET PO (09:14)
[2025-09-06] MEDS: FINASTERIDE 5 MG TABLET PO (09:15)
[2025-09-06] MEDS: SODIUM BICARBONATE 650 MG TABLET PO (09:15)
[2025-09-06] MEDS: SENNA/DOCUSATE SOD 1 TAB TABLET PO (09:15)
[2025-09-06] MEDS: IRON SUCROSE CPLX INJ 20 MG/ML VIAL 5 ML 100 MG IVP (09:15)
[2025-09-06] MEDS: EPOETIN ALFA-EPBX INJ 10,000 UNIT/ML VIAL (ESRD) 10000 UNIT SC (09:50)
--- NOTE | 2025-09-06 13:47 | ESDS_ITS ---
<Statement entered by Bear Rodney MD - 09/07/25 08:34> I saw and examined patient personally and supervised PGY 1 resident, Dr. Flores with formulating a management plan. I agree with the documentation with the exceptions as listed below. Patient was admitted for acute respiratory failure with hypoxia secondary to new onset acute decompensated systolic heart failure exacerbation [EF 30%]. Etiology likely secondary to undiagnosed long-term uncontrolled hypertension versus viral myocarditis. Patient will be discharged on Bumex 1 mg p.o. daily and carvedilol 6.25 mg p.o. twice daily. Recommend to follow-up with Dr. Iva Awad within 2 weeks of discharge for nuclear stress test and possible endomyocardial biopsy. Also follow-up with nephrology, Dr Chisholm as outpatient to monitor kidney function. At this point in time all patient's labs are returning to his baseline. Clinically stable and fit for discharge to home. Plan of care discussed with Attending Dr. Bal Rodney MD PGY 2 Disclaimer: This note was dictated by speech recognition. Minor errors in snagger may be present due to voice recognition software. Planned Discharge Date 09/06/25 DS: Providers Provider Date of admission: 09/01/25 02:00 Primary care physician: Physician No Primary/Family Admitting Provider: Tee Fernandes MD Attending Provider on Admission: Amrit Cleveland MD Consults: 08/31/25 22:55 Referral Respiratory Therapy Stat Comment: BiPAP 09/01/25 02:09 Consult to Cardiology Stat Comment: Consulting Provider: Clau Awad Consult to Nephrology Stat Comment: Consulting Provider: Malika Chisholm 09/01/25 05:01 Consult to Nephrology Stat Comment: Renal failure Consulting Provider: Malika Chisholm Attending Provider on DC: Pasquale Selby MD Discharging Provider: Pasquale Selby MD DS: Diagnosis Problem List Completed Was Problem List Reviewed/Reconciled?: Yes Hospital Course Hospital Course Hospital course: Mr. Hartman is a 64 y/o male with no reported PMHx who presented with shortness of breath, orthopnea, palpitations, unproductive cough, dysuria x2 days. In the ED patient was HR 100-140s, RR 20-40, BP 140-180s / 90-130s, BMI 18, spO2 91% 6L NC --> 98% BiPAP FiO2 50%. Labs significant for WBC 21, hgb 7.3, HCT 23, plt 554. Na 130, bicarb 12.6, BUN 72, Cr 7.4, eGFR 8, glucose 205. Ddimer 2009, Lactic acid 3.6, Trop 0.108, CRP >10, BNP 1973, procal 1.49, TSH WNL. pH 7.35/23/123/13. UA 1+ blood, + LE, WBC 84. Negative COVID/flu. CXR showed extensive b/l PNA. EKG sinus tachycardia 138, prolonged QTc 499. Pending urine and blood cx. Given lasix 40 mg PO x1 in ED, made ~150 mL urine by time of interview. Nitroglycerin 2 inch topical, metoprolol 2.5 mg IV, metoprolol 50 mg PO, metoprolol 5 mg IV, morphine 2 mg IV, Ceftriaxone 1g IV, Vancomycin 1g IV, 1U pRBC. Admitted for acute CHF exacerbation, b/l PNA, UTI. In the hospital cardiology and nephrology were cpnsulted/ ECHO showed CHF HFrEF 30% miltral reguitation & tricuspid regurgitation, NYHA class III. Troponins downtrended. He was started on coreg 6mg BID, BIPAP, strict I/Os and diuresed which resolved his symptoms of SOB. His pneumonia was treated with Ceftriaxone 1g and Azithromycin 500 mg. His renal panel remained elevated and is encouraged to follow up with Dr. Chisholm for nephrology and urology for management of prostatomegaly. Patient is safe to discharge home with strict recommendations to follow up with cardiology, urology, and nephrology outpatient. Discharge Instructions: ? You have been started on a water pill, Bumex for your heart failure. Take 1 tablet a day. ? You have been started on a blood pressure medication for your heart Coreg. Take 1 tablet twice a day. ? You will have to restrict your daily liquid intake to 1.5 Litres / 50 ounces per day. This includes water, teas, coffees and soups. ? You will have to follow a low salt diet for the rest of your life. This means no Egyptian food or fast food. -You have been started Finasteride and Flomax for your enlarged prostated. ? You will have to take your weight daily. If your weight increases by more than 5-10 pounds in 1-2 days, take an extra water pill that day. ? You will have to measure your blood pressure daily. If the top number is less than 100, do not take your blood pressure medications that day. ? Keep a log of your blood pressures to take to your primary doctor and care coordination manager. - Follow up with your care coordination manager or care coordination manager, Dr. Feliciano Awad outpatient. His office number is [phone]. Please see a care coordination manager within 1-2 weeks of discharge - Follow up with your primary care physician within 1 week of discharge. If you do not have a primary care physician, please follow up with the [facility] Residents clinic ([phone]) ? If you experience any new, worsening or persistent symptoms either call your primary doctor, or dial 911 or present to the emergency department. #Acute kidney injury (CONOR) most likely 2/2 #Obstructive vs pre-renal #Acute CHF exacerbation, improving #CHF HFrEF 30% (09/01/2025) #Miltral Reguitation & Tricuspid regurgitation #Moderate Pulmonary HYpertension #Small pericardial effusion #Acute hypoxic respiratory failure - resolving #Community-acquired pneumonia #Leukocytosis #GPC bacteremia, less likely #NSTEMI-I vs NSTEMI-II #Leukocytosis -resolving #Lactic acidosis - now resolved #UTI #Prostatomegaly #Primary anion gap metabolic acidosis- Improving #Compensatory respiratory alkalosis #Normocytic normochromic anemia - resolving #Transaminitis #QTc prolongation #Thrombocytosis #Underweight #Hematuria - resolving Patient's plan and care discussed with my attending, Dr. Selby, and supervising resident MD Martin Nieves MD Internal Medicine PGY-1 Status at Discharge Functional status at discharge: independent ambulation Overall status at discharge: patient is back to baseline Time Spent with Patient Time attestation: Total time spent providing and/or coordinating discharge services: Time spent: Greater than 30 minutes Exam Vital Signs Temp Pulse Resp BP Pulse Ox O2 Del Method O2 Flow Rate 97.3 F 70 20 118/70 97 Room Air 2 09/06/25 12:00 09/06/25 12:00 09/06/25 12:00 09/06/25 12:00 09/06/25 12:00 09/06/25 12:00 09/02/25 07:14 FiO2 40 09/01/25 08:00 Narrative Exam GENERAL APPEARANCE: AOx3. NAD, activity normal for age, well developed/ well nourished, no cyanosis, pallor, or diaphoresis. HEENT: Normocephalic atraumatic, no facial trauma, neck is supple. Lids/conjunctiva normal. Mucous membranes moist, nares normal, lips/teeth normal uvula midline without oral pharyngeal erythema, exudate or swelling TMs normal bilaterally. No lymphangitis/lymphedema. -JVD CARDIAC: RRR, S1+S2 heard. No murmurs, rubs, or gallops noted RESPIRATORY: Bilateral breath sounds vesicular and clear to auscultation no rhonchi, rales, or wheezes appreciated. ABDOMINAL: NBS. Soft, ND/NT. No evidence of fluid wave. No pulsatile masses on exam, rebound tenderness, Huang sign or pain over Mcburney's point. MUSCLES/EXTREMITIES: No abnormal range of motion, no swelling. No pedal edema DERM: Warm, pink and dry. No rashes, dermatoses, petechiae or lesions. NEUROLOGICAL: Speech is clear and appropriate. Normal level of consciousness. Gait and coordination are normal. 5/5 strength in all extremities. PSYCH: Normal mood and affect. Judgement/competence is appropriate : No CVA tenderness Discharge Plan Plan Patient Disposition: HOME (Self Care) Patient condition on transfer: Stable Care Plan Goals: ? You have been started on a water pill, Bumex for your heart failure. Take 1 tablet a day. ? You have been started on a blood pressure medication for your heart Coreg. Take 1 tablet twice a day. ? You will have to restrict your daily liquid intake to 1.5 Litres / 50 ounces per day. This includes water, teas, coffees and soups. ? You will have to follow a low salt diet for the rest of your life. This means no Egyptian food or fast food. -You have been started Finasteride and Flomax for your enlarged prostated. ? You will have to take your weight daily. If your weight increases by more than 5-10 pounds in 1-2 days, take an extra water pill that day. ? You will have to measure your blood pressure daily. If the top number is less than 100, do not take your blood pressure medications that day. ? Keep a log of your blood pressures to take to your primary doctor and care coordination manager. - Follow up with your care coordination manager or care coordination manager, Dr. Feliciano Awad outpatient. His office number is [phone]. Please see a care coordination manager within 1-2 weeks of discharge - Follow up with your primary care physician within 1 week of discharge. If you do not have a primary care physician, please follow up with the [facility] Residents clinic ([phone]) ? If you experience any new, worsening or persistent symptoms either call your primary doctor, or dial 911 or present to the emergency department. Prescriptions/Referrals Prescriptions/Med Rec: New sodium bicarbonate 650 mg Tablet 650 mg PO BID 14 Days Qty: 28 0RF sevelamer carbonate 800 mg Tablet 800 mg PO TIDWM 30 Days Qty: 90 0RF ferrous sulfate 134 mg (27 mg iron) tablet 134 mg PO QDAY 30 Days Qty: 30 0RF carvedilol [Coreg] 6.25 mg tablet 6.25 mg PO BID 30 Days Qty: 60 2RF Rx Instructions: must administer with a meal/food bumetanide 1 mg tablet 1 mg PO QDAY 30 Days Qty: 30 0RF tamsulosin [Flomax] 0.4 mg capsule 0.4 mg PO QDAY 30 Days Qty: 30 0RF finasteride 5 mg tablet 5 mg PO QDAY 30 Days Qty: 30 0RF Referrals: [facility] [Outside] No Primary/Family,Physician [Primary Care Provider] Clau Awad MD [Physician, Cardiology] Patient/Caregiver Discharge Instructions Meds to Beds: No Education Materials: Coping with Heart Failure Print Language: Greenlandic Stand Alone Forms: [facility] Award Info., Patient Portal Info Letter Discharge Order Discharge Orders: Discharge (Routine); Ordered 09/06/25 Ordered By: Leeann Hathaway Quality Discharge Quality Measures VTE prophylaxis Attestestation Attestation I discussed with and supervised the resident physician who took care of this patient. I agree with the assessment and discharge plan as above. Patient should follow-up with his primary care provider and care coordination manager. Return to the emergency room for recurrent symptoms.
--- NOTE | 2025-09-06 15:08 | ESPR_ITS ---
<Statement entered by Clau Awad MD - 09/08/25 12:10> I personally examined evaluated the patient with resident physician PGY 2 Dr. Jc RENE and the patient is doing clinically well not having shortness of chest pain recommend patient be discharged on medical management and follow the patient as an outpatient for cardiac workup. Documentation for date of: 09/06/25 Subjective Subjective Interval history: No aucte overnight events. Seen and examined while eating lunch and no complaints at this time. Patient ready for discharge and instructed to have close follow-up outpatient with Dr. Awad given echo findings. Upon follow-up, will continue GDMT and plan for nuclear stress test for further evaluation. Agree with bumex 1 mg upon discharge. Exam Vital Signs Temp Pulse Resp BP Pulse Ox O2 Del Method O2 Flow Rate 97.3 F 70 20 118/70 97 Room Air 2 09/06/25 12:00 09/06/25 12:00 09/06/25 12:00 09/06/25 12:00 09/06/25 12:00 09/06/25 12:00 09/02/25 07:14 FiO2 40 09/01/25 08:00 Narrative Exam General: AOx3, no acute distress, able to speak full sentences HEENT: NC/AT, mucous membranes moist, bilateral sclera anicteric Cardiovascular: tachycardic but normal rhythm, S1/S2 present, no murmurs appreciated Pulmonary: breathing comfortably on room air, lungs clear to auscultation bilaterally Abdominal: soft, non-tender, non-distended, no rebound/guarding, normal bowel sounds present Musculoskeletal: normal ROM, no lower extremity edema Skin: warm and dry, intact, no rashes Neuro: CN II-XII intact, no focal deficits Objective Labs 09/06/25 06:19 09/06/25 06:19 Labs: Laboratory Results - last 24 hr 09/04/25 09/06/25 06:58 06:19 WBC 12.5 H RBC 2.85 L Hgb 8.0 L Hct 25.3 L MCV 89 MCH 28.1 MCHC 31.6 RDW Std Deviation 47.7 H Plt Count 564 H D Neut % (Auto) 59 Lymph % (Auto) 15 Scott % (Auto) 10 Eos % (Auto) 14 H Baso % (Auto) 1 Neut # (Auto) 7.4 Lymph # (Auto) 1.8 Scott # (Auto) 1.2 H Eos # (Auto) 1.7 H Baso # (Auto) 0.1 Immature Gran # (Auto) 0.36 H Absolute Nucleated RBC 0.00 Immature Gran % 3 H Nucleated RBC % 0 Sodium 136 Potassium 3.7 Chloride 100 Carbon Dioxide 20.4 Anion Gap 16 BUN 87 H Creatinine 5.9 H* Estim Creat Clear Calc 10.7 L eGFR 10 L* BUN/Creatinine Ratio 15 Glucose 85 Calculated Osmolality 297 H Calcium 9.6 Corrected Calcium 9.8 Phosphorus 6.1 H Magnesium 2.1 Total Bilirubin 0.3 AST 19 ALT 105 H Alkaline Phosphatase 65 Total Protein 7.0 Albumin 3.8 Globulin 3.2 Albumin/Globulin Ratio 1.2 Hepatitis A IgM Ab Non Reactive Hep Bs Antigen Non Reactive Hep B Core IgM Ab Non Reactive Hepatitis C Antibody Non Reactive ABG Interpretation ABG results: 08/31/25 09/01/25 09/01/25 23:24 07:55 21:32 ABG pH 7.35 7.39 ABG pCO2 23 L 22 L ABG pO2 123 H 147 H D ABG HCO3 13 L 13 L ABG O2 Saturation 99 H 100 H ABG Base Excess -11 L -10 L VBG pH 7.46 VBG pCO2 22 L VBG pO2 100 H VBG Base Excess -7 L Quality Measures Quality Measures none Assessment & Plan Assessment Current Active Medications: Generic Name Dose Route Start Last Admin Trade Name Freq PRN Reason Stop Dose Admin Acetaminophen 650 mg 09/01/25 07:31 09/03/25 13:56 Acetaminophen 325 Mg Tablet PO 10/01/25 01:59 650 mg Q6H PRN Administration Fever >100 or pain 1-3 Bumetanide 2 mg 09/04/25 09:00 09/04/25 09:04 Bumetanide 0.5 Mg Tablet PO 10/04/25 08:59 2 mg BID BRANNON Administration Carvedilol 3.125 mg 09/03/25 17:30 09/04/25 09:04 Carvedilol 3.125 Mg Tablet PO 10/03/25 17:29 3.125 mg BIDWM BRANNON Administration Dextrose 25 ml 09/01/25 07:33 Dextrose 50%-Water Inj 50 Ml Syringe IV 10/01/25 07:32 Q15MIN PRN BG 50-70 responsive npo pt Dextrose 50 ml 09/01/25 07:33 Dextrose 50%-Water Inj 50 Ml Syringe IV 10/01/25 07:32 Q15MIN PRN BG <50 OR BG <70 & pt unresponsive Epoetin Alex 10,000 unit 09/06/25 09:00 Epoetin Alex-Epbx Inj 10,000 Unit/Ml Vial (Esrd) SC 10/06/25 08:59 2 X WEEKLY BRANNON Glucagon 1 mg 09/01/25 07:33 Glucagon Inj 1 Mg Vial IM Q15MIN PRN BG <70, and no IV access Heparin Sodium (Porcine) 5,000 unit 09/01/25 06:00 09/04/25 05:31 Heparin Sod Inj 5000 Unit/Ml Vial SC 09/15/25 05:59 5,000 unit Q8HR BRANNON Administration Hydralazine HCl 10 mg 09/01/25 18:17 Hydralazine Inj 20 Mg/Ml Vial IVP 10/01/25 18:16 Q6HR PRN SBP>180 DBP>110 Ceftriaxone Sodium/Dextrose 1 gm in 50 mls @ 100 mls/hr 09/01/25 09:41 09/04/25 09:00 Rocephin/D5w 1gm Iv Premix IV 09/05/25 09:40 100 mls/hr QDAY BRANNON Administration Insulin Human Lispro 0 unit 09/01/25 11:30 09/04/25 11:29 Insulin Lispro (Admelog) 1 Unit/0.01 Ml Unit SC 10/01/25 11:29 Not Given ACHS BRANNON Protocol Iron Sucrose 100 mg 09/03/25 12:15 09/04/25 08:58 Iron Sucrose Cplx Inj 20 Mg/Ml Vial 5 Ml IVP 09/07/25 09:01 100 mg DAILY BRANNON Administration Pharmacy Consult 1 each 09/01/25 07:30 Pharmacy Renal Dose Adjustment 1 Ea XX 10/01/25 07:29 PRN PRN CONSULT Sennosides 1 tab 09/01/25 03:17 09/03/25 13:26 Senna/Docusate Sod 1 Tab Tablet PO 10/01/25 03:16 1 tab QDAY PRN Administration CONSTIPATION Protocol Sevelamer Carbonate 800 mg 09/02/25 12:00 09/04/25 11:28 Sevelamer Carbonate 800 Mg Tablet PO 10/02/25 11:59 800 mg TIDWM BRANNON Administration Sodium Bicarbonate 650 mg 09/01/25 09:00 09/04/25 08:59 Sodium Bicarbonate 650 Mg Tablet PO 10/01/25 08:59 650 mg BID BRANNON Administration Plan Moshe Hartman is a 64-year-old male with no reported past medical history who is admitted for acute hypoxic respiratory failure and cardiology consulted for possible new onset congestive heart failure. #Acute hypoxic respiratory failure, improving #New onset HFrEF (30% on 08/2025) #Decompensated congestive heart failure, improving #NSTEMI type II/demand ischemia, improving #? Myocarditis, viral #Tricuspid regurgitation, moderate-severe #Mitral regurgitation, moderate-severe Presents with acute onset, progressive shortness of breath over the course of a few days with associated fever, chills, edema and noted to have sick contact. No chest discomfort, orthopnea, or PND. Apparently exposed to bat and rodent droppings in attic and since has had episodes of recurrent illnesses. Given acuity of symptoms, suspect presentation to be due to silent cardiac pathology from prior exposure (possibly myocarditis) exacerbated by current respiratory infection given elevated WBC, ESR, CRP, and Pro-Chidi (though may be elevated from myocarditis). Lower suspicion for ischemic event given hypertension may be only risk factor as A1c 5.3%, lipid panel unremarkable, and TSH wnl. Thus, clinically suspected myocarditis on basis of new/acute onset of dyspnea/SOB, elevated troponins, T wave inversions in V3/4/5, and echo findings of EF of 30%, severe LV global hypokinesis, moderate to severe MR, moderate to severe TR, moderate pulmonary hypertension, small pericardial effusion. ? Carvedilol increased to 6.25 mg twice daily ? Bumex 1 mg p.o. daily ? Continue strict I/O, 1.5 L fluid restriction, and daily weights ? Once stable, can consider outpatient cardiac MR given that gold standard for diagnosis is endomyocardial biopsy ? Upon discharge, follow-up outpatient for further evaluation #Sinus tachycardia EKG and telemetry show sinus tachycardia with some nonspecific T wave abnormalities. Suspect to be due to underlying infection and CHF exacerbation. ? Treat underlying cause(s) #CAP #Acute vs chronic kidney injury, improving #Lactic acidosis, resolved #AGMA, improving #UTI #Normocytic anemia #Transaminitis, improving ? Continue management per primary team ----- Plan discussed with attending physician Dr. Ritesh Rene MD PGY-2 Internal Medicine
== END 2025-09-06 13:01 | disposition home or self-care (01) | DRG 280 ==
LOC: SERX 09-01 01:46 → SERHOLD 09-01 02:17 → S2NX 09-01 06:27
PROVIDERS: Internal Medicine Nephrology; Admitting Provider Internal Medicine; Emergency Provider Emergency Medicine; Visit Provider Internal Medicine
DX: I13.0 Hypertensive heart and chronic kidney disease with heart failure and stage 1 through stage 4 chronic kidney disease, or unspecified chronic kidney disease (principal); I50.23 Acute on chronic systolic (congestive) heart failure; I21.A1 Myocardial infarction type 2; J18.9 Pneumonia, unspecified organism; J96.01 Acute respiratory failure with hypoxia; N17.9 Acute kidney failure, unspecified; N39.0 Urinary tract infection, site not specified; Z68.1 Body mass index [BMI] 19.9 or less, adult; E87.1 Hypo-osmolality and hyponatremia; E87.4 Mixed disorder of acid-base balance; I31.39 Other pericardial effusion (noninflammatory); B33.22 Viral myocarditis; D75.839 Thrombocytosis, unspecified; R63.6 Underweight; R73.9 Hyperglycemia, unspecified; R74.01 Elevation of levels of liver transaminase levels; R31.9 Hematuria, unspecified; N18.9 Chronic kidney disease, unspecified; D63.1 Anemia in chronic kidney disease; I42.0 Dilated cardiomyopathy; I08.1 Rheumatic disorders of both mitral and tricuspid valves; I27.20 Pulmonary hypertension, unspecified; E83.39 Other disorders of phosphorus metabolism; N40.0 Benign prostatic hyperplasia without lower urinary tract symptoms; Z79.899 Other long term (current) drug therapy
CPT/HCPCS: 36415; 36430; 36600; 71045; 76770; 80048; 80053; 80061; 80074; 80307; 81001; 82010; 82248; 82550; 82803; 83036; 83540; 83550; 83605; 83690; 83735; 83880; 84100; 84145; 84443; 84484; 85014; 85018; 85025; 85379; 85652; 86140; 86331; 86635; 86703; 86706; 86850; 86900; 86901; 86923; 87040; 87077; 87081; 87086; 87186; 87205; 87502; 87634; 87811; 93005; 93306; 94660; 96365; 96366; 96372; 96374; 96375; 96376; 99285; A4314; J0456; J0696; J1644; J1756; J1938; J3373; J3475; J3480; J3490; J7050; P9016; Q5105; A9270